=== PATIENT | male | born 1955 | race Caucasian/White ===

== ENCOUNTER 2017-02-05 05:25 | Day surgery (SDC) | payer SELFPAY ==
[~2017-02-05] VITALS: Ht 182.9 cm; Wt 94.0 kg
[~2017-02-05 05:25] MED LIST: ASPI81 PO; DIGO0.25 PO; ELIQUIS PO; ROSU40 PO
[2017-02-05] MEDS ORDERED: IOHEXOL 350 MG/ML 100 ML BTL (for Cath Lab) OTHER ONE (05:26)
[2017-02-05 06:00] VITALS: BP 106/70; PULSE 70; RESP 17; O2SAT 94
[2017-02-05] MEDS ORDERED: ASPIRIN 325 MG TAB PO SCH (06:00)
[2017-02-05] MEDS ORDERED: NS 1000P @30 MLS/HR (KVO) IV SCH (06:00)
[2017-02-05] MEDS ORDERED: LORazepam 1 MG TAB SL SCH (06:15)
[2017-02-05] MEDS ORDERED: SODIUM CHLORID 0.9% 500 ML INJ 500 ML IV SCH (06:15)
[2017-02-05] MEDS ORDERED: SODIUM CHLORID 0.9% 500 ML IV PRN (06:30)
[2017-02-05] MEDS ORDERED: LACTATED RINGER'S 1000 ML IV PRN (06:30)
[2017-02-05] MEDS ORDERED: INSULIN HUMAN REGULAR 1,000 UNITS/10 ML VIAL SQ PRN (06:30)
[2017-02-05] MEDS ORDERED: POVIDONE IODINE 5% (ANTISEPSIS KIT) 4 APPLICATIONS EACH NARE PRN (06:30)
[2017-02-05] MEDS ORDERED: METOPROLOL TARTRATE 25 MG TAB PO PRN (06:30)
[2017-02-05] MEDS ORDERED: CHLORHEXIDINE GLUCONATE 2 % 1 PACK (2 CLOTHS) TOPICAL PRN (06:30)
[2017-02-05 07:02] LABS: AUTOMATED NEUTROPHIL # 4.8 TH/MM3 (1.8-7.7); BASOPHIL % 0.5 % (0.0-2.0); EOSINOPHIL # 0.2 TH/MM3 (0-0.4); EOSINOPHIL % 2.4 % (0.0-4.0); HEMATOCRIT 47.9 % (39.0-51.0); HEMO FLAGS DIFF FINAL; LYMPH % 26.4 % (9.0-44.0); MEAN CELL VOLUME 97.8 FL (80.0-100.0); MEAN CORPUSCULAR HEMOGLOBIN 34.3 PG (27.0-34.0); MEAN CORPUSCULAR HGB CONC 35.1 % (32.0-36.0); MONO % 9.2 % (0.0-8.0); NEUT % 61.5 % (16.0-70.0); PLATELET COUNT 197 TH/MM3 (150-450); RED BLOOD COUNT 4.89 MIL/MM3 (4.50-5.90); RED CELL DISTRIBUTION WIDTH 13.2 % (11.6-17.2); WHITE BLOOD COUNT 7.8 TH/MM3 (4.0-11.0)
[2017-02-05 07:09] LABS: APTT (PATIENT) 27.5 SEC (24.3-30.1); PROTHROMBIN TIME - PATIENT 11.2 SEC (9.8-11.6)
[2017-02-05 07:17] LABS: BICARBONATE 26.8 MEQ/L (21.0-32.0); POTASSIUM 4.1 MEQ/L (3.5-5.1)
[2017-02-05] MEDS ORDERED: HEPARIN-NS/PF INJ 500 ML ONE (07:29)
[2017-02-05] MEDS ORDERED: MIDAZOLAM HCL 2 MG/2 ML VIAL ONE ×2 (07:30→08:09)
[2017-02-05] MEDS ORDERED: NITROGLYCERIN INJ 5 ML ONE ×2 (07:30→08:09)
[2017-02-05] MEDS ORDERED: BIVALIRUDIN 250 MG VIAL ONE (08:05)
[2017-02-05] MEDS ORDERED: STERILE WATER FOR INJECTION 10 ML VIAL ONE (08:05)
[2017-02-05] MEDS ORDERED: APIX5TAB PO (08:13)
[2017-02-05] MEDS ORDERED: CLOPIDOGREL 300 MG TAB ONE (08:24)
[2017-02-05] MEDS ORDERED: SODIUM CHLOR 0.9% 1000 ML INJ 1,000 ML IV SCH (08:46)
[2017-02-05] MEDS ORDERED: BIVALIRUDIN INJ 250 MG in SODIUM CHLORIDE 0.9% INJ 50 ML IV SCH (08:46)
--- NOTE | 2017-02-05 08:48 | CATHPROC ---
[employer] HIS Report Study Information Study Number Admission Scheduled Start Study Start [id number] Feb 05 2017 5:25AM 02/05/2017 Feb 05 2017 7:24AM [place] Service Cardiac Catheterization Admit Source Facility Department Other [facility] - Compliance Coordinator Physician and Clinical Staff Initial Venu Teresa Shoe Laster Brandy Khoury,CASIMIRO Recorder Kecia Mary,RT(R) Scrub Nato Watkins RCIS(BS) Procedures Performed Procedure Location (Site) Vessel Name Angiogram LV LV Ventricle Coronary Angiograms LCA Left Coronary Coronary Angiograms RCA Right Coronary Drug Eluting Inflatio LAD Prox Left Coronary L Heart Cath Wire insertion Fem Art (right) Femoral Art Equipment Time Online Trader Description Size Mfg Part Number Used/Scraped TRANSDUCER, ARIK [id number] 07:51 OBRIEN VERDUZCO * Used W/STOCKCOCK *[id number] *[id number] *[id number] PIGTAIL ANG. 145 INFINITI 534-652S CATHETER *[id number] *[id number] 08:26 DAIG/ST. MARIA R MEDICAL ANGIOSEAL, FR6 VIP FR 6 Used *[id number] 07:51 [employer] PACK, CCL CUSTOM * Used *[id number] 07:51 [employer] PACER PEN, SKIN DUAL W/ RULER * Used *[id number] 08:16 MED[employer] STENT, 3.5 12MM ARTURO 3.5 12MM Used *[id number] WIRE, COUGAR LS 190CM 08:09 [employer] 190CM [id number] Used (SILICONE) 08:11 [employer] WIRE, COUGAR XT 190CM 190CM [id number] Used [id number] 08:18 [employer] MEDICAL 30 POLO INDEFLATOR Used *[id number] 07:51 [employer] MEDICAL SHEATH, FR6.5 PRELUDE 11CM FR 6.5 038ACT Used *[id number] 07:51 [employer] MEDICAL WIRE, 3MMJ .035 180CM 180CM Used *[id number] 07:51 NAMIC MANIFOLD, 4 PORT * Used *[id number] 07:51 [employer] OMNIPAQUE, 350 MG, 100ML 100ML [id number] Used 08:03 [employer] OMNIPAQUE, 350 MG, 50ML 50ML [id number] Used [id number] 07:51 PRAJAPATI MEDICAL BLANKET,WARM AIR CCL * Used *[id number] Equipment Model, Serial, Lot Number and Expiration Data Description Model Number Serial Number Lot Number Expiration Date ANGIOJOSE DANGELO [id number] 11-10-2017 STENT, 3.5 12MM ARTURO [id number] 10-30-2018 History: Current Medications Medication Dosage/Unit Route Frequency Last Date/Time Taken 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 PRADAXA History: Allergies Allergy Reaction ketorolac History: Risk Factors Family History of Hypertension Dyslipidemia Previous SD Previous Heart Failure Premature CAD Yes Yes No No No Prior Valve Prior PCI Prior CABG Surgery No No No Cerebrovascular Peripheral Artery Chronic Lung On Dialysis Diabetes Disease Disease Disease No No No No No History: Stress Tests Stress or Imaging Studies Performed Yes Standard Exercise Stress Stress Test Result Stress Test Ischemia Risk/Extent Test Yes Positive Intermediate Stress Echo No Stress Test SPECT No Stress Test CMR No Cardiac CTA Coronary Calcium Score No No History: Other Disease Selection Items CAD History: Other Current Smoker Method Packs a Day Years Used Pack Years Yes Cigarettes 05 03 20 Labs Hgb (g/dl) Hct (%) WBC (l/cumm) Platelets (thousands) 11.60-17.00 35.00-51.00 4.00-11.00 150.00-450.00 16.8 47.9 7.8 197 Glucose (mg/dl) BUN (mg/dl) Creatinine (mg/dl) BUN:Creatinine (1:x) 74.00-106.00 7.00-18.00 0.50-1.30 10.00-20.00 98 13 0.9 14.4 Na (meq/l) K (meq/l) 136.00-145.00 3.50-5.10 142 4.1 INR (PTT:PT) 0.90-1.10 1 CPK-MB (ng/ML) 0.50-3.60 Not Drawn Medication Medication Total Dose (Bolus/Oral) Medication Total Dosage/Unit 1% XYLOCAINE 20 mL AGGRASTAT BOLUS 14 mL FENTANYL 50 mcg PLAVIX 600 mg VERSED 3 mg Medications (Bolus/Oral) Medication Time Given Dosage/Unit Administered By Reason VERSED 02/05/2017 7:47:21 AM 2 mg Brandy Khoury 2 mg VERSED given in lab by Brandy Khoury RN in Right Antecubital via Peripheral IV. Ordered by Venu Lowery. 1% XYLOCAINE 02/05/2017 7:49:45 AM 20 mL Venu Garcia 20 mL 1% XYLOCAINE given in lab by Venu Garcia in Right Groin via Subcutaneous. AGGRASTAT BOLUS 02/05/2017 8:08:00 AM 14 mL Brandy Khoury 14 mL AGGRASTAT BOLUS given in lab by Brandy Khoury RN in Right Antecubital via Peripheral IV. Ord ered by Venu Garcia. VERSED 02/05/2017 8:09:00 AM 1 mg Brandy Khoury 1 mg VERSED given in lab by Brandy Khoury RN in Right Antecubital via Peripheral IV. Ordered by Venu Lowery. FENTANYL 02/05/2017 8:22:45 AM 50 mcg Brandy Khoury 50 mcg FENTANYL given in lab by Brandy Khoury RN in Right Antecubital via Peripheral IV. Ordered b y Venu Garcia. PLAVIX 02/05/2017 8:29:25 AM 600 mg Brandy Khoury 600 mg PLAVIX given in lab by Brandy Khoury RN via Oral. Ordered by Venu Garcia. Medication (Drip) Medication Time Given Dosage/Unit Concentration/Unit Diluent (ml) Solution AGGRASTAT DRIP 02/05/2017 8:11:08 AM 0.292 mcg/kg/min 12.5 mg 250 NaCl .9 0.292 mcg/kg/min AGGRASTAT DRIP given in lab by Brandy Khoury RN in Right Antecubital via Peripher al IV. Pump/Drip Flow = 32.9 ml/hr using NaCl .9 with a concentration of 12.5 mg in 250 ml. Ordered by Venu Garcia. IV Solutions 02/05/2017 7:24:09 AM 50 mL (IV) NaCl .9 IV Solutions given in lab by Brandy Khoury RN in Right Antecubital via Peripheral IV. Pump/Drip Fl ow using NaCl .9. Initial Case Assessment Cardiovascular HR Rhythm NIBP Chest Pain 64 SR 125/87 0 Edema Present Skin color Skin None Normal Warm Dry Circulatory - Right Pulses Dorsalis Pedis Femoral 2 2 Scale (0,1,2,3,4,d) Circulatory - Left Pulses Dorsalis Pedis Femoral 2 2 Scale (0,1,2,3,4,d) Neurological State Oriented to time-place- Alert Moves all extremities person Respiration - General Respiration Rate SpO2 (%) (B/min) 14 95 Chronological Log Time Study Chronological Log 7:22:00 Patient arrived via Bed. 7:23:51 Patient Name, D.O.B, / Armband Verified By R.N. 7:23:52 Consent signed by the physician and the patient and verified by the Compliance Coordinator staff. 7:23:53 Pre-op and post- op instructions given; patient acknowledges understanding of instructions. 7:23:54 Verbal Stimulation=2 Physical Stimulation=2 Airway=2 Respiration=2 TOTAL=8. (0=absent, 1=li mited, 2=present) 7:23:57 Presedation assessment performed by Compliance Coordinator RN. 7:24:02 Patient has been NPO for More than 6Hrs. 7:24:02 Skin Breakdown- none per pt 7:24:04 Patient Warmer Placed on the Table. 7:24:06 Mya Prominences Protected 7:24:08 A # 20 IV was noted in the Antecubital (left). Grade = 0 7:24:08 A # 20 IV was noted in the Antecubital (right). Grade = 0 7:24:09 IV Solutions given in lab by Brandy Khoury, CASIMIRO in Right Antecubital via Peripheral IV. Pu mp/Drip Flow using NaCl .9. 7:24:10 History and physical on the chart or being dictated. Assessment: Initial Case, HR=64 BPM, Rhythm=SR, GXGU=402/87 mmhg, Chest Pain=0, Edema=None, Col or=Normal, Skin = Warm, Dry Right Pulses: Brad Ped=2, Femoral=2 7:24:11 Left Pulses: Brad Ped=2, Femoral=2 Neurological: State=Alert, Ox3, WALLACE Respiration: Resp=14 B/min, SpO2=95 % Vitals capture started with the following parameters, Patient=Adult, Interval=5 min, Initial Pre piksb=198 mmHg, 7:35:19 Deflation Rate=5 mmHg, Cuff placed on Right Arm 7:35:57 HR=67 bpm, RXFR=461/87 mmhg, SpO2=95.0 %, Resp=17 B/min 7:36:30 MD paged 7:36:34 Bilateral groins prepped with 2% chlorhexidine, and draped after a 3 minute waiting time. 7:39:00 Pressure channel 1 zeroed. 7:39:32 Reference ECG taken 7:40:00 MD arrived. 7:40:52 HR=68 bpm, SHDG=183/78 mmhg, SpO2=93 %, Resp=13 B/min 7:45:51 HR=67 bpm, OJEM=312/72 mmhg, Resp=16 B/min Time Out. Correct patient, correct procedure, correct physician, power injector loaded, or not l oaded with contrast with 7:46:14 surgical team present. Time Out Concurred by MD and individual staff in procedure. 7:46:49 Case Start 7:47:21 2 mg VERSED given in lab by Brandy Khoury, RN in Right Antecubital via Peripheral IV. Orde red by Venu Garcia. 7:49:45 20 mL 1% XYLOCAINE given in lab by Venu Garcia in Right Groin via Subcutaneous. 7:50:54 HR=69 bpm, OKPI=676/76 mmhg, SpO2=95 %, Resp=20 B/min 7:51:07 Access site was Right Femoral Artery. 7:51:23 A SHEATH, FR6.5 PRELUDE 11CM FR 6.5 was advanced into the Fem Art (right) using the Percutan eous technique. A PIGTAIL ANG. 145 INFINITI CATHETER FR 6 was advanced over a wire. OMNIPAQUE, 350 MG, 100ML 100 ML was 7:52:59 used for injections. Recorded Pressure: LV, HR=73, Condition=Condition 1 7:54:44 (Left Ventricle) LV 110/1/4 7:55:04 The LV was injected at 10 cc/sec for a total of 40. OMNIPAQUE, 350 MG, 50ML 50ML used. 7:55:51 HR=70 bpm, IVTK=872/81 mmhg, SpO2=93.0 %, Resp=18 B/min Recorded Pressure: LV, Ao, HR=73, Condition=Condition 1 7:56:27 (Left Ventricle) LV 97/3/7, (Aorta) Ao 95/59/76 7:56:46 Catheter was removed A JL 5.0 INFINITI CATHETER FR 6 was advanced over a wire. OMNIPAQUE, 350 MG, 100ML 100ML was use d for 7:57:29 injections. 7:58:26 The LCA was injected and visualized at various angles. OMNIPAQUE, 350 MG, 100ML 100ML used. 8:00:50 HR=68 bpm, QOLG=120/79 mmhg, SpO2=94.0 %, Resp=11 B/min 8:02:23 Catheter was removed A 3DRC INFINITI CATHETER FR 6 was advanced over a wire. OMNIPAQUE, 350 MG, 100ML 100ML was used for 8:02:31 injections. 8:03:33 The RCA was injected and visualized at various angles. OMNIPAQUE, 350 MG, 100ML 100ML used. 8:05:53 HR=79 bpm, PXRU=633/86 mmhg, SpO2=94 %, Resp=15 B/min 8:06:57 Catheter was removed 14 mL AGGRASTAT BOLUS given in lab by Brandy Khoury, CASIMIRO in Right Antecubital via Peripheral IV . Ordered by 8:08:00 Venu Garcia. 8:09:00 1 mg VERSED given in lab by Brandy Khoury, CASIMIRO in Right Antecubital via Peripheral IV. Orde red by Venu Garcia. 8:10:50 HR=73 bpm, WJZQ=269/81 mmhg, SpO2=95.0 %, Resp=13 B/min 0.292 mcg/kg/min AGGRASTAT DRIP given in lab by Brandy Khouyr, CASIMIRO in Right Antecubital via Per ipheral IV. 8:11:08 Pump/Drip Flow = 32.9 ml/hr using NaCl .9 with a concentration of 12.5 mg in 250 ml. Ordered by Venu Garcia. A XB LAD 4.0 GUIDE CATHETER FR 6 was advanced over a wire. OMNIPAQUE, 350 MG, 100ML 100ML was us ed for 8:11:56 injections. 8:12:04 A WIRE, COUGAR XT 190CM 190CM was inserted via Fem Art (right). 8:14:04 Interventional wire has crossed the lesion 8:15:53 HR=68 bpm, AWEQ=531/74 mmhg, Resp=20 B/min A STENT, 3.5 12MM ARTURO 3.5 12MM was advanced through a XB LAD 4.0 GUIDE CATHETER FR 6 over a W JIMENA, 8:18:03 COUGAR XT 190CM 190CM. A STENT, 3.5 12MM ARTURO 3.5 12MM was deployed using a 30 POLO INDEFLATOR at 14 atmospheres for 3 0 seconds in 8:18:16 the LAD Prox. 8:19:57 Delivery device removed 8:21:27 HR=74 bpm, VGFY=300/75 mmhg, SpO2=95.0 %, Resp=18 B/min 8:22:45 50 mcg FENTANYL given in lab by Brandy Khoury, RN in Right Antecubital via Peripheral IV . Ordered by Venu Garcia. 8:25:14 An injection in the Fem Art (right) was made through the SHEATH, FR6.5 PRELUDE 11CM FR 6.5 . 8:25:55 HR=72 bpm, HWEP=881/80 mmhg, SpO2=96 %, Resp=20 B/min 8:26:21 ANGIOSEAL, FR6 VIP FR 6 placement in the Fem Art (right) 8:28:00 Case End 8:29:25 600 mg PLAVIX given in lab by Brandy Khoury, RN via Oral. Ordered by Venu Garcia. 8:30:15 Sterile dressing applied to site 8:30:16 No case complications noted. 8:30:56 HR=68 bpm, AFIY=515/78 mmhg, SpO2=96.0 %, Resp=18 B/min 8:36:02 Vitals capture stopped. 8:37:00 A Left Heart Cath was performed. 8:38:00 Patient moved to [facility] End Study - Contrast Media Used In Study Contrast Total Opened (mL) Total Used (mL) Total Wasted (mL) Omnipaque 175 175 0 End Study - Maximum Contrast Load Max Contrast Load (mL) 522.2 End Study - Radiation Exposure Fluoro Time (minutes) 7.8 End Study - Patient Disposition Complications Transferred To Interventional Outcome No Telemetry Bed successful
[2017-02-05] MEDS ORDERED: SODIUM CHLORIDE 0.9% FLUSH 10 ML FLUSH IV FLUSH PRN (09:00)
[2017-02-05] MEDS ORDERED: MISC INFORMATION XX ONE (09:00)
[2017-02-05] MEDS ORDERED: SODIUM CHLORIDE 0.9% FLUSH 10 ML FLUSH IV FLUSH SCH (09:00)
[2017-02-05] MEDS ORDERED: oxyCODONE/ACETAMINOPHEN 5 MG/325 MG TAB PO PRN (09:00)
[2017-02-05] MEDS ORDERED: ACETAMINOPHEN 325 MG TAB PO PRN (09:00)
[2017-02-05] MEDS ORDERED: ONDANSETRON HCL 4 MG/2 ML VIAL IV PUSH PRN (09:00)
--- NOTE | 2017-02-05 10:38 | MA ---
cc: JUAN NINO M.D. VÍCTOR GRAY DATE 02/05/2017 PROCEDURE PERFORMED 1. Left heart catheterization 2. Left ventriculography 3. Coronary angiography 4. Drug-eluting stent implantation of the proximal left anterior descending coronary artery 5. Angio-Seal of the right femoral artery. BRIEF HISTORY Rosales Luciano is a 61-year-old man with known coronary artery disease and paroxysmal atrial fibrillation. 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 He had a previous cardiac catheterization June 14, 2012 showing a hazy 60% proximal LAD stenosis. FFR was negative. He had a treadmill test that was significant for [address] depression at peak exercise. Symptoms have been about class 2. The FAA told the patient he would have to have a cardiac catheterization before he could be approved to go back to work. He has also had recurrence of his atrial fibrillation detected on a stress test. For this reason, cardiac catheterization was performed. DESCRIPTION OF PROCEDURE The patient was brought to the cardiac systems testing laboratory technician in a fasting state. Using 1% lidocaine for local anesthesia, a 6-1/2-St Helenian sheath was inserted in the right femoral artery. Left ventricular pressure was then recorded using a pigtail catheter followed by left ventriculography and then a pullback. Left coronary angiography was completed using a left five Kourtney catheter. Right coronary angiography was completed using a 3DRC catheter. He was found to have a severe stenosis in the proximal LAD. He used a 6-St Helenian XB4 LAD guiding catheter to engage the left main. Intravenous Angiomax was given during the case. The LAD was wired with a Norton XT wire. I then direct stented the proximal LAD utilizing a 3.5 x 12 mm Nikos stent. There was a persistent waist on the stent until 14 atmospheres. The stent completely relieved. The stent result appears excellent. There was no loss of the small second diagonal branch or any of the septal branches. The patient had severe chest pain that resolved over the next 15 minutes. Angiography in multiple views shows a good stent result. I then obtained angiography of the right femoral artery via the sheath followed by uncomplicated Angio-Seal placement with good hemostasis. FINDINGS 1. Hemodynamics. Left ventricular pressure was 97/3 with an end-diastolic pressure of 7. The aortic pressure was 95/59 with a mean of 76. There was no gradient during pullback from the left ventricle to the aorta. 2. Left ventriculography. Left ventriculography shows a symmetrically bea left ventricle. There is a slight degree of coronary artery calcification. Estimated ejection fraction of 60% with no wall motion abnormalities. 3. Coronary angiography. The left main coronary artery is large and normal-appearing. It bifurcates into the LAD and circumflex vessels. The left anterior descending artery has a 20% proximal stenosis followed by a second 85% proximal stenosis and involves the origin of a small second diagonal branch, coming off distal to that is the major septal rectifying attendant. The remainder of the LAD appears normal. The circumflex artery proximally has an eccentric 20% stenosis. It bifurcates into a large bifurcating obtuse marginal branch and a medium-sized distal circumflex vessel that gives off a few tiny posterolateral branches. The right coronary artery is technically dominant, but a somewhat small vessel. There is somewhat diffuse proximal and mid disease. The proximal disease is about 20%. Mid vessel has about 30% stenosis. Distally, it is just irregularities only. It gives off a very small posterolateral branch and a small posterior descending artery branch. 4. Results of stenting. Following stenting of the proximal LAD using a 3.5 x 12 drug-eluting stent, there is now a 0% residual stenosis without evidence of dissection or thrombus and no loss of any side branches. PLAN I am going to continue aspirin and Plavix initially, but stop the aspirin early and then continue Plavix and Eliquis long-term. MD MANSOOR Easton/JULIET /8:40 AM /10:25 AM
--- NOTE | 2017-02-05 14:56 | EKG ---
Date Performed: 02/05/2017 Time Performed: 06:55:36 PTAGE: 61 years EKG: Sinus rhythm with frequent PVCs ST junctional depression is nonspecific Compared to previous tracing the frequent PVCs are new. The lateral T-wave changes have resolved. Abnormal ECG PREVIOUS TRACING : 07/09/2012 18.48 DOCTOR: Vicky Zapata Interpretating Date/Time 02/05/2017 14:52:19
--- NOTE | 2017-02-05 17:34 | HHI.PR ---
Addendum to Inpatient Note Addendum Reason: Additional Documentation Additional Information Doing well post stent. Chest clear, CV [id number], Right groin looks fine. DC home. ASA 81mg daily 1 week then stop. Clopidogrel 75 mg daily (script writtent) . Start Pradaxa baxck on Thursday. Keep OV. Heart healthy diet. No strenuous activity. Venu Garcia MD Feb 05, 2017 17:34
--- NOTE | 2017-02-05 23:37 | EKG ---
Date Performed: 02/05/2017 Time Performed: 10:23:32 PTAGE: 61 years EKG: Sinus rhythm with PVC(s) Septal T wave changes are nonspecific Abnormal ECG PREVIOUS TRACING : 02/05/2017 06.55 Compared to prior tracing no significant change DOCTOR: Tom Russell Interpretating Date/Time 02/05/2017 23:36:26
[2017-02-06] MEDS ORDERED: ASPIRIN 81 MG CHEW TAB PO SCH (09:00)
[2017-02-06] MEDS ORDERED: CLOPIDOGREL 75 MG TAB PO SCH (09:00)
== END 2017-02-05 18:03 | disposition home or self-care (01) ==
LOC: HDOC 05:25 → HDIC 05:29 → HDOC 18:03
PROVIDERS: ATTEND Internal Medicine Cardiovascular Disease
DX: I25.10 Atherosclerotic heart disease of native coronary artery without angina pectoris (principal); I48.0 Paroxysmal atrial fibrillation; I49.3 Ventricular premature depolarization; R94.31 Abnormal electrocardiogram [ECG] [EKG]; E78.5 Hyperlipidemia, unspecified; I10 Essential (primary) hypertension; F17.200 Nicotine dependence, unspecified, uncomplicated
CPT/HCPCS: 80048; 85025; 85610; 85730; 86850; 86900; 86901; 92928; 93005; 93458; 99152; 99153; C1760; C1769; C1874; C1887; C1893; G0269; J0583; J1644; J2250; J3010; J7030; J7040; Q9967

== ENCOUNTER 2017-03-07 12:32 | Inpatient (IN) | payer SELFPAY ==
[~2017-03-07] VITALS: Ht 182.9 cm; Wt 98.6 kg
[2017-03-07] VITALS (7 sets, daily range): BP systolic 104–133; BP diastolic 59–78; PULSE 57–80; RESP 16–18; TEMP 98–98.7; O2SAT 95–100
[~2017-03-07 12:32] MED LIST changes: +APIX5TAB PO; -ELIQUIS PO
--- NOTE | 2017-03-07 12:36 | PD ---
HPI Chief Complaint: Syncope Time Seen by Provider: 12:35 Travel History International Travel<30 days: No Contact w/Intl Traveler<30days: No Traveled to known affect area: No History of Present Illness HPI 61-year-old male not in by EMS status post syncopal event while standing in line for some water at the [employer]. Patient has significant cardiac history for recent stent placement by Dr. Garcia 3 weeks ago. Patient has history of A. fib intermittently, and is scheduled for an ablation in the next several weeks. Patient is currently on Plavix and Pradaxa. Patient was noted to have a couple of episodes of bigeminy in transport which improved with addition of O2 via nasal cannula. Currently patient has no complaints of pain or shortness of breath. He has no nausea or vomiting. He is allergic to ketorolac. PFSH Past Medical History Autoimmune Disease: No Blood Disorders: No Cancer: No Cardiovascular Problems: Yes (A-FIB ABLATION) High Cholesterol: Yes Chemotherapy: No Chest Pain: No Diabetes: No Diminished Hearing: No Endocrine: No Gastrointestinal Disorders: No Glaucoma: No Genitourinary: No Hepatitis: No Hiatal Hernia: No Immune Disorder: No Implanted Vascular Access Dvce: No Musculoskeletal: No Neurologic: No Psychiatric: No Reproductive: No Respiratory: No Integumentary: No Radiation Therapy: No Thyroid Disease: No Past Surgical History Abdominal Surgery: No Cardiac Surgery: Yes (CARDIAC ABLATION) Endocrine Surgery: No Genitourinary Surgery: No Thoracic Surgery: No Tonsillectomy: Yes Other Surgery: Yes (TONSILS,A-FIB ABLATION) Social History Alcohol Use: No Tobacco Use: Yes (1/2PPD) Substance Use: No Allergies-Medications (Allergen,Severity, Reaction): Coded Allergies: ketorolac (Unverified Allergy, Severe, 11/25/16) Reported Meds & Prescriptions Reported Meds & Active Scripts Active Reported Crestor (Rosuvastatin Calcium) 40 Mg Tab 40 Mg PO DAILY Plavix (Clopidogrel Bisulfate) 75 Mg Tab 75 Mg PO DAILY Pradaxa (Dabigatran) 150 Mg Cap 150 Mg PO BID Digoxin 0.25 Mg Tab 0.25 Mg PO DAILY Review of Systems Cardiovascular: Positive: Palpitations, Irregular Rhythm, Syncope (see history present illness) Physical Exam Narrative GENERAL: Patient appears in no acute distress at time of exam. SKIN: Warm and dry. Normal color. Normal turgor. Patient has abrasion to the left elbow with superficial abrasion to the volar left forearm HEAD: Atraumatic. Normocephalic. EYES: Pupils equal and round. No scleral icterus. No injection or drainage. ENT: No nasal bleeding or discharge. Mucous membranes pink and moist. Pharynx is clear. Airway is patent. NECK: Trachea midline. Supple nontender. CARDIOVASCULAR: Irregular rate and rhythm. No murmurs gallops or rubs at time of exam. RESPIRATORY: No accessory muscle use. Clear to auscultation. Breath sounds equal bilaterally. GASTROINTESTINAL: Abdomen soft, non-tender, nondistended. Hepatic and splenic margins not palpable. MUSCULOSKELETAL: Extremities without clubbing, cyanosis, or edema. No obvious deformities. NEUROLOGICAL: Awake and alert. No obvious cranial nerve deficits. Motor grossly within normal limits. Five out of 5 muscle strength in the arms and legs. Normal speech. PSYCHIATRIC: Appropriate mood and affect; insight and judgment normal. Data Data Last Documented VS Vital Signs Date Time Temp Pulse Resp B/P (MAP) Pulse Ox O2 Delivery O2 Flow Rate FiO2 03/07/17 12:55 95 18 97 Room Air 03/07/17 12:55 98.3 119/59 (79) Orders Orders Electrocardiogram (03/07/17 12:41) Complete Blood Count With Diff (03/07/17 12:41) Comprehensive Metabolic Panel (03/07/17 12:41) Magnesium (Mg) (03/07/17 12:41) Ckmb (Isoenzyme) Profile (03/07/17 12:41) Troponin I (03/07/17 12:41) Act Partial Throm Time (Ptt) (03/07/17 12:41) Prothrombin Time / Inr (Pt) (03/07/17 12:41) Urinalysis - C+S If Indicated (03/07/17 12:41) Chest, Single Ap (03/07/17 12:41) Ecg Monitoring (03/07/17 12:41) Iv Access Insert/Monitor (03/07/17 12:41) Oximetry (03/07/17 12:41) Oxygen Administration (03/07/17 12:41) Sodium Chloride 0.9% Flush (Ns Flush) (03/07/17 12:45) Sodium Chlor 0.9% 1000 Ml Inj (Ns 1000 M (03/07/17 12:41) Morphine Inj (Morphine Inj) (03/07/17 13:30) Nitroglycerin Sl (Nitrostat Sl) (03/07/17 13:30) Digoxin (03/07/17 13:32) Admit Order (Ed Use Only) (03/07/17 14:14) Labs Laboratory Tests Test 03/07/17 12:51 White Blood Count 8.7 TH/MM3 Red Blood Count 4.39 MIL/MM3 Hemoglobin 15.0 GM/DL Hematocrit 42.4 % Mean Corpuscular Volume 96.6 FL Mean Corpuscular Hemoglobin 34.1 PG Mean Corpuscular Hemoglobin Concent 35.3 % Red Cell Distribution Width 13.1 % Platelet Count 195 TH/MM3 Mean Platelet Volume 8.3 FL Neutrophils (%) (Auto) 57.6 % Lymphocytes (%) (Auto) 31.9 % Monocytes (%) (Auto) 8.1 % Eosinophils (%) (Auto) 1.9 % Basophils (%) (Auto) 0.5 % Neutrophils # (Auto) 5.0 TH/MM3 Lymphocytes # (Auto) 2.8 TH/MM3 Monocytes # (Auto) 0.7 TH/MM3 Eosinophils # (Auto) 0.2 TH/MM3 Basophils # (Auto) 0.0 TH/MM3 CBC Comment DIFF FINAL Differential Comment Prothrombin Time 12.0 SEC Prothromb Time International Ratio 1.1 RATIO Activated Partial Thromboplast Time 33.4 SEC Blood Urea Nitrogen 12 MG/DL Creatinine 0.74 MG/DL Random Glucose 98 MG/DL Total Protein 6.7 GM/DL Albumin 3.3 GM/DL Calcium Level 8.3 MG/DL Magnesium Level 1.8 MG/DL Alkaline Phosphatase 86 U/L Aspartate Amino Transf (AST/SGOT) 11 U/L Alanine Aminotransferase (ALT/SGPT) 12 U/L Total Bilirubin 0.4 MG/DL Sodium Level 139 MEQ/L Potassium Level 4.1 MEQ/L Chloride Level 108 MEQ/L Carbon Dioxide Level 24.1 MEQ/L Anion Gap 7 MEQ/L Estimat Glomerular Filtration Rate 108 ML/MIN Total Creatine Kinase 76 U/L Troponin I LESS THAN 0.02 NG/ML MDM Medical Decision Making Medical Screen Exam Complete: Yes Emergency Medical Condition: Yes Medical Record Reviewed: Yes Differential Diagnosis Syncope. Cardiac syndrome. Arrhythmia. Narrative Course Patient appears medically stable at time of exam. Labs ordered including CBC, CMP, magnesium, cardiac panel, urinalysis. Chest x-ray and EKG is ordered. IV access is obtained patient is given 1000 miles normal saline bolus. EKG shows sinus rhythm with occasional ventricular premature complexes with frequent SVC's. This is reviewed with Dr. Santos. CBC is unremarkable. Coagulation studies show PT of 12, INR 1.1, APTT is 33.4 CMP shows chloride 108, calcium 8.3, otherwise unremarkable. First troponin is less than 0.02. Patient complains of chest pain and repeat EKG is performed showing no changes from previous. Patient is given 4 mg morphine IV. Chest x-ray is unremarkable for acute disease. Digoxin levels added to his labs. Patient discussed with Dr. Santos feels he should be admitted, due to his previous history and intermittent chest pain and arrhythmias with history of syncope. Call was placed to the hospitalist, Dr. Santos excoriated with Dr. Gonzales regarding admission. Diagnosis Primary Impression: Syncope and collapse Additional Impressions: Cardiac arrhythmia, unspecified Qualified Codes: I49.8 - Other specified cardiac arrhythmias Chest pain at rest Admitting Information Admitting Physician Requests: Admit Condition: Stable Caden Franco Mar 07, 2017 12:36
[2017-03-07] MEDS ORDERED: SODIUM CHLOR 0.9% 1000 ML INJ 1,000 ML IV ONE (12:41)
[2017-03-07] MEDS ORDERED: SODIUM CHLORIDE 0.9% FLUSH 10 ML FLUSH IVF PRN (12:45)
[2017-03-07 13:03] LABS: BASOPHIL % 0.5 % (0.0-2.0); EOSINOPHIL # 0.2 TH/MM3 (0-0.4); EOSINOPHIL % 1.9 % (0.0-4.0); HEMATOCRIT 42.4 % (39.0-51.0); HEMO FLAGS DIFF FINAL; LYMPH % 31.9 % (9.0-44.0); LYMPHOCYTE # 2.8 TH/MM3 (1.0-4.8); MEAN CELL VOLUME 96.6 FL (80.0-100.0); MEAN CORPUSCULAR HEMOGLOBIN 34.1 PG (27.0-34.0); MEAN CORPUSCULAR HGB CONC 35.3 % (32.0-36.0); MONO % 8.1 % (0.0-8.0); NEUT % 57.6 % (16.0-70.0); PLATELET COUNT 195 TH/MM3 (150-450); RED BLOOD COUNT 4.39 MIL/MM3 (4.50-5.90); RED CELL DISTRIBUTION WIDTH 13.1 % (11.6-17.2); WHITE BLOOD COUNT 8.7 TH/MM3 (4.0-11.0)
[2017-03-07] MEDS ORDERED: PRAD150C PO (13:05)
[2017-03-07] MEDS ORDERED: DIGO0.25 PO (13:05)
[2017-03-07] MEDS ORDERED: PLAV75TA29 PO (13:06)
[2017-03-07] MEDS ORDERED: ROSU40 PO (13:06)
[2017-03-07 13:10] LABS: APTT (PATIENT) 33.4 SEC (24.3-30.1); INTERNATIONAL NORMALIZED RATIO 1.1 RATIO
[2017-03-07 13:15] LABS: ALT (GPT) 12 U/L (12-78); ANION GAP 7 MEQ/L (5-15); AST (GOT) 11 U/L (15-37); BICARBONATE 24.1 MEQ/L (21.0-32.0); BLOOD UREA NITROGEN 12 MG/DL (7-18); CHLORIDE 108 MEQ/L (98-107); GLOMERULAR FILTRATION RATE 108 ML/MIN (>89); MAGNESIUM 1.8 MG/DL (1.5-2.5); POTASSIUM 4.1 MEQ/L (3.5-5.1); SODIUM (NA) 139 MEQ/L (136-145)
[2017-03-07 13:19] LABS: ALKALINE PHOSPHATASE 86 U/L (45-117); TOTAL BILIRUBIN ADULT 0.4 MG/DL (0.2-1.0)
[2017-03-07 13:22] LABS: CREATINE KINASE 76 U/L (39-308)
[2017-03-07] MEDS ORDERED: MORPHINE SULFATE 4 MG/ML INJ IV PUSH ONE (13:30)
[2017-03-07] MEDS: NITROGLYCERIN 0.4 MG SL 25 TABS/BTL SL SCH ×4 (13:30→13:48)
--- NOTE | 2017-03-07 13:38 | RADRPT ---
EXAM DATE/TIME: 03/07/2017 12:59 [facility] COMPARISON: No previous studies available for comparison. INDICATIONS : Palpitations. MEDICAL HISTORY : A fib SURGICAL HISTORY : Cardiac stent. ENCOUNTER: Initial ACUITY: 1 day PAIN SCORE: 0/10 LOCATION: Bilateral chest FINDINGS: A single view of the chest demonstrates the lungs to be symmetrically aerated without evidence of mas s, infiltrate or effusion. The cardiomediastinal contours are unremarkable. Osseous structures are intact. CONCLUSION: No acute disease. Jorge L Gamino MD on March 07, 2017 at 13:36 Board Certified Radiologist. This report was verified electronically.
[2017-03-07 14:27] LABS: BLOOD, URINE NEG (NEG); GLUCOSE,URINE NEG (NEG); KETONE, URINE NEG (NEG); NITRITE,URINE NEG (NEG); PH, URINE 6.5 (5.0-8.5); SQUAMOUS EPITHELIAL CELL URINE <1 /hpf (0-5); URINE COLOR LIGHT-YELLOW (YELLW/STRAW)
[2017-03-07] MEDS ORDERED: LACTULOSE SYRUP 20 GM/30 ML CUP PO PRN (14:30)
[2017-03-07] MEDS ORDERED: NALOXONE HCL 0.4 MG/ML AMP IV PUSH PRN (14:30)
[2017-03-07] MEDS ORDERED: SENNOSIDES 8.6 MG TAB PO PRN (14:30)
[2017-03-07] MEDS ORDERED: SODIUM CHLORIDE 0.9% FLUSH 10 ML FLUSH IV FLUSH PRN (14:30)
[2017-03-07] MEDS ORDERED: MAGNESIUM HYDROXIDE SUSP 30 ML CUP PO PRN (14:30)
[2017-03-07] MEDS ORDERED: BISACODYL 10 MG SUPP RECTAL PRN (14:30)
[2017-03-07 14:36] LABS: COMMENT (UR) CULT NOT INDICATED; CULTURE IF INDICATED CULT NOT INDICATED
--- NOTE | 2017-03-07 16:12 | RADRPT ---
EXAM DATE/TIME: 03/07/2017 15:39 [facility] COMPARISON: No previous studies available for comparison. INDICATIONS : Syncope. MEDICAL HISTORY : Hypercholesterolemia. SURGICAL HISTORY : Tonsillectomy. Cardiac ablation. ENCOUNTER: Initial ACUITY: 1 day PAIN SCORE: 0/10 LOCATION: Bilateral neck PEAK SYSTOLIC VELOCITIES (cm/sec): ICA/CCA RATIO: Right: 3.2 Left: 1.2 ICA: Right: 219.3 Left: 101.1 CCA: Right: 68.8 Left: 81.7 ECA: Right: 51.3 Left: 83.3 VERTEBRAL: Right: 57.5 antegrade Left: 59.0 antegrade Elevated flow velocities and ICA/CCA ratios have been found to correlate with increased degrees of vessel stenosis, calculated as percentage of diameter relative to a normal segment of distal ICA/CCA FINDINGS: RIGHT CAROTID: Prominent non-shadowing plaque in the proximal internal carotid artery. There is widening of the Dop pler velocity spectrum was negative velocity components are in both systole and diastole. LEFT CAROTID: No significant stenosis is visualized. The waveforms are within normal limits. VERTEBRAL ARTERIES: Antegrade flow is seen in both vertebral arteries. MISCELLANEOUS: None. CONCLUSION: 1. Moderate severity right proximal internal carotid artery disease with hemodynamic parameters bill cteristic of 50-70% stenosis. 2. Normal hemodynamic profile on the left side. Pawan Christopher MD on March 07, 2017 at 16:08 Board Certified Radiologist. This report was verified electronically.
[2017-03-07] MEDS: SODIUM CHLOR 0.45% 1000 ML INJ 1,000 ML IV SCH (16:41)
--- NOTE | 2017-03-07 17:05 | HHI.HP ---
HPI Service [facility] Hospitalists Primary Care Physician [facility] Admission Diagnosis Syncope/Arythmia/Chest Pain Diagnoses: Chief Complaint: Chest pain Syncope Travel History International Travel<30 Days: No Contact w/Intl Traveler <30 Da: No Traveled to Known Affected Are: No History of Present Illness Written by Gloria Pate, acting as scribe for Dr. Gonzales on 03/07/17 at 16: 56. This patient is a 61-year-old male with past medical history significant for coronary artery disease status post recent cardiac catheterization and stent implant 02/05/17 and atrial fibrillation who presents to [facility] with complaints of syncopal event while standing in line for some water at the [employer] earlier today. Patient states he had just walked over to [place] from [place] when he developed palpitations and lightheadedness. He felt himself begin to pass out and braced himself with his left arm. Patient denies every losing consciousness. He states he felt dehydrated prior to the incident. Paramedics at the scene told him his EKG showed atrial fibrillation. Reportedly, patient is scheduled for an ablation in the next several weeks. He is currently on Plavix, Lipitor, Pradaxa and Metoprolol. Per review of the ED note, patient had couple episodes of bigeminy in transport which improved with oxygen. EKG showed NSR with occasional PVCs. While in the ED, patient also complained of "chest tightening " that he described as left sided pressure. Patient was given IV Morphine with improvement in symptoms after a few minutes. Patient had a repeat EKG was obtained showing no changes from previous. CXR unremarkable for acute disease. Patient denies any recent illness. He denies any fever, chills or vision changes. He does report increased fatigue since having the cardiac stent implanted. He denies any dyspnea. He denies any nausea, vomiting or abdominal pain. He denies any urinary difficulties, diarrhea or constipation. Review of Systems Except as stated in HPI: all other systems reviewed are Neg Past Family Social History Past Medical History Atrial fibrillation scheduled for ablation CAD status post cardiac stent implant Dyslipidemia Past Surgical History Cardiac stent implant 3 weeks ago Appendectomy Previous cardiac ablation Tonsillectomy Reported Medications Crestor (Rosuvastatin Calcium) 40 Mg Tab 40 Mg PO DAILY Plavix (Clopidogrel Bisulfate) 75 Mg Tab 75 Mg PO DAILY Pradaxa (Dabigatran) 150 Mg Cap 150 Mg PO BID Digoxin 0.25 Mg Tab 0.25 Mg PO DAILY Allergies: Coded Allergies: ketorolac (Unverified Allergy, Severe, 11/25/16) Active Ordered Medications Current Medications Medications (Trade) Dose Ordered Sig/Pooja Route Start Time Stop Time Status Last Admin (NS Flush) 2 ml UNSCH PRN IVF 03/07/17 12:45 (Plavix) 75 mg DAILY PO 03/08/17 09:00 (Pradaxa) 150 mg BID PO 03/07/17 21:00 (Lipitor) 80 mg DAILY PO 03/08/17 09:00 Sodium Chloride 1,000 ml @ 75 mls/hr [id number] IV 03/07/17 14:23 03/07/17 16:41 (NS Flush) 2 ml UNSCH PRN IV FLUSH 03/07/17 14:30 (NS Flush) 2 ml BID IV FLUSH 03/07/17 21:00 (Narcan Inj) 0.4 mg UNSCH PRN IV PUSH 03/07/17 14:30 (Milk Of Magnesia Liq) 30 ml Q12H PRN PO 03/07/17 14:30 (Senokot) 17.2 mg Q12H PRN PO 03/07/17 14:30 (Dulcolax Supp) 10 mg DAILY PRN RECTAL 03/07/17 14:30 (Lactulose Liq) 30 ml DAILY PRN PO 03/07/17 14:30 Family History Sister, diabetes Coronary artery disease Father, age 50, lymphoma Mother, , stomach and liver cancer Social History Patient has a history of tobacco use of between 3/4 and a pack a day for 20years. Patient reports rare EtOH consumption and none today. Patient denies any illicit drug use. 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 Physical Exam Vital Signs Vital Signs Date Time Temp Pulse Resp B/P (MAP) Pulse Ox O2 Delivery O2 Flow Rate FiO2 03/07/17 16:35 98.0 57 16 133/78 (96) 99 03/07/17 12:55 95 18 97 Room Air 03/07/17 12:55 18 98 Room Air 03/07/17 12:55 97 Room Air 03/07/17 12:55 98.3 80 18 119/59 (79) 98 Room Air Physical Exam GENERAL: This is a well-nourished, well-developed patient, in no apparent distress. SKIN: Cool and dry. Patient has abrasions to left elbow with superficial abrasion on the volar aspect of left forearm. HEAD: Atraumatic. Normocephalic. No temporal or scalp tenderness. EYES: Pupils equal round and reactive. Extraocular motions intact. No scleral icterus. No injection or drainage. ENT: Nose without bleeding or purulent drainage. Throat without erythema, tonsillar hypertrophy or exudate. Uvula midline. Airway patent. NECK: Trachea midline. No lymphadenopathy. Supple, nontender, no meningeal signs. CARDIOVASCULAR: Regular rate and rhythm without murmurs, gallops, or rubs. RESPIRATORY: Clear to auscultation. Breath sounds equal bilaterally. No wheezes , rales, or rhonchi. GASTROINTESTINAL: Abdomen soft, non-tender, nondistended. No hepato-splenomegaly , or palpable masses. No guarding. MUSCULOSKELETAL: Extremities without clubbing, cyanosis, or edema. No joint tenderness, effusion, or edema noted. No calf tenderness. NEUROLOGICAL: Awake and alert. Cranial nerves II through XII intact. Motor and sensory grossly within normal limits. Five out of 5 muscle strength in all muscle groups. Normal speech. Laboratory Laboratory Tests Test 03/07/17 12:51 03/07/17 14:08 White Blood Count 8.7 Red Blood Count 4.39 Hemoglobin 15.0 Hematocrit 42.4 Mean Corpuscular Volume 96.6 Mean Corpuscular Hemoglobin 34.1 Mean Corpuscular Hemoglobin Concent 35.3 Red Cell Distribution Width 13.1 Platelet Count 195 Mean Platelet Volume 8.3 Neutrophils (%) (Auto) 57.6 Lymphocytes (%) (Auto) 31.9 Monocytes (%) (Auto) 8.1 Eosinophils (%) (Auto) 1.9 Basophils (%) (Auto) 0.5 Neutrophils # (Auto) 5.0 Lymphocytes # (Auto) 2.8 Monocytes # (Auto) 0.7 Eosinophils # (Auto) 0.2 Basophils # (Auto) 0.0 CBC Comment DIFF FINAL Differential Comment Prothrombin Time 12.0 Prothromb Time International Ratio 1.1 Activated Partial Thromboplast Time 33.4 Blood Urea Nitrogen 12 Creatinine 0.74 Random Glucose 98 Total Protein 6.7 Albumin 3.3 Calcium Level 8.3 Magnesium Level 1.8 Alkaline Phosphatase 86 Aspartate Amino Transf (AST/SGOT) 11 Alanine Aminotransferase (ALT/SGPT) 12 Total Bilirubin 0.4 Sodium Level 139 Potassium Level 4.1 Chloride Level 108 Carbon Dioxide Level 24.1 Anion Gap 7 Estimat Glomerular Filtration Rate 108 Total Creatine Kinase 76 Troponin I LESS THAN 0.02 Digoxin Level LESS THAN 0.1 Urine Color LIGHT-YELLOW Urine Turbidity CLEAR Urine pH 6.5 Urine Specific [place] 1.007 Urine Protein NEG Urine Glucose (UA) NEG Urine Ketones NEG Urine Occult Blood NEG Urine Nitrite NEG Urine Bilirubin NEG Urine Urobilinogen LESS THAN 2.0 Urine Leukocyte Esterase NEG Urine RBC 1 Urine WBC 1 Urine Squamous Epithelial Cells <1 Microscopic Urinalysis Comment CULT NOT INDICATED Urine Opiates Screen NEG Urine Barbiturates Screen NEG Urine Amphetamines Screen NEG Urine Benzodiazepines Screen NEG Urine Cocaine Screen NEG Urine Cannabinoids Screen NEG Result Diagram: 03/07/17 1251 03/07/17 1251 Imaging Last Impressions Chest X-Ray 03/07/17 1241 Signed Impressions: Service Date/Time: Tuesday, March 07, 2017 12:59 - CONCLUSION: No acute disease. Jorge L Gamino MD Carotid Artery Ultrasound 03/07/17 0000 Signed Impressions: Service Date/Time: Tuesday, March 07, 2017 15:39 - CONCLUSION: 1. Moderate severity right proximal internal carotid artery disease with hemodynamic parameters characteristic of 50-70%% stenosis. 2. Normal hemodynamic profile on the left side. Pawan Christopher MD Cappascalei VTE Risk Assessment Caprini VTE Risk Assessment: Mod/High Risk (score >= 2) Caprini Risk Assessment Model Point Value = 1 Point Value = 2 Point Value = 3 Point Value = 5 Age 41-60 Minor surgery BMI > 25 kg/m2 Swollen legs Varicose veins or History of unexplained or recurrent spontaneous Oral contraceptives or hormone replacement Sepsis (< 1 month) Serious lung disease, including pneumonia (< 1 month) Abnormal pulmonary function Acute myocardial infarction Congestive heart failure (< 1 month) History of inflammatory bowel disease Medical patient at bed rest Age 61-74 Arthroscopic surgery Major open surgery (> 45 min) Laparoscopic surgery (> 45 min) Malignancy Confined to bed (> 72 hours) Immobilizing plaster cast Central venous access Age >= 75 History of VTE Family history of VTE Factor V Leiden Prothrombin [id number] Lupus anticoagulant Anticardiolipin antibodies Elevated serum homocysteine Heparin-induced thrombocytopenia Other congenital or acquired thrombophilia Stroke (< 1 month) Elective arthroplasty Hip, pelvis, or leg fracture Acute spinal cord injury (< 1 month) Prophylaxis Regimen Total Risk Factor Score Risk Level Prophylaxis Regimen 0-1 Low Early ambulation 2 Moderate Order ONE of the following: *Sequential Compression Device (SCD) *Heparin 5000 units SQ BID 3-4 Higher Order ONE of the following medications: *Heparin 5000 units SQ TID *Enoxaparin/Lovenox 40 mg SQ daily (WT < 150 kg, CrCl > 30 mL/min) *Enoxaparin/Lovenox 30 mg SQ daily (WT < 150 kg, CrCl > 10-29 mL/min) *Enoxaparin/Lovenox 30 mg SQ BID (WT < 150 kg, CrCl > 30 mL/min) AND/OR *Sequential Compression Device (SCD) 5 or more Highest Order ONE of the following medications: *Heparin 5000 units SQ TID (Preferred with Epidurals) *Enoxaparin/Lovenox 40 mg SQ daily (WT < 150 kg, CrCl > 30 mL/min) *Enoxaparin/Lovenox 30 mg SQ daily (WT < 150 kg, CrCl > 10-29 mL/min) *Enoxaparin/Lovenox 30 mg SQ BID (WT < 150 kg, CrCl > 30 mL/min) AND *Sequential Compression Device (SCD) Assessment and Plan Assessment and Plan 61-year-old male with past medical history significant for coronary artery disease status post recent cardiac catheterization and stent implant 02/05/17 and atrial fibrillation who presents to [facility] with complaints of syncopal event while standing in line for some water at the [employer] earlier today. Chest pain in patient with known history of CAD status post previous cardiac catheterization with cardiac stent implant 02/05/17, r/o ACS - EKG personally reviewed shows normal sinus rhythm with occasional PVCs and frequent SVC's - Initial troponin less than 0.02. Continue trend cardiac enzymes - Consult patients groundman/lineman Dr. Venu Garcia, appreciate his assistance - IV morphine and NTG sl when necessary chest pain - Continuous cardiac monitoring - Supplemental oxygen - Continue patient on home medications of Lipitor, Plavix, Metoprolol and Pradaxa. - heart healthy diet Syncope/near syncopal episode - UDS negative - IVF hydration - Obtain echocardiogram - Holter monitor - Carotid ultrasound completed - Moderate severity right proximal internal carotid artery disease with hemodynamic parameters characteristic of 50-70% stenosis. Consult Vascular surgery. - Continue his cardiac monitoring - Fall precautions Atrial fibrillation - rate controlled - Continue patient on home dose of Pradaxa 150mg BID - Continue patient on Metoprolol 25mg BID - Monitor heart rate Tobaccoism - discussed importance of cessation DVT prophylaxis - patient is on Pradaxa Discussed Condition With Patient, ED physician Physician Certification 2 Midnight Certification Type: Admission for Inpatient Services Order for Inpatient Services The services are ordered in accordance with Medicare regulations or non- Medicare payer requirements, as applicable. In the case of services not specified as inpatient-only, they are appropriately provided as inpatient services in accordance with the 2-midnight benchmark. Estimated LOS (days): 2 days is the estimated time the patient will need to remain in the hospital, assuming treatment plan goals are met and no additional complications. Post-Hospital Plan: Home Notes: This note was transcribed by ellie Pate. I, Dr. Alvaro Gonzales personally performed the history, physical exam, and medical decision making; and confirmed the accuracy of the information in the transcribed note. Authenticated by Dr. Alvaro Gonzales on 03/07/17 at 18:10. Gloria Pate Mar 07, 2017 17:05 Alvaro Gonzales MD Mar 07, 2017 18:10
--- NOTE | 2017-03-07 17:51 | MB ---
cc: TOM JOHN DO DATE OF CONSULTATION 03/07/17 REASON FOR CONSULTATION Syncopal episode. HISTORY OF PRESENT ILLNESS Rosales Luciano is a pleasant 61-year-old male known to my partner, Dr. Venu Garcia, who presented to [facility] on March 07, 2017 after a syncopal episode. The patient states that he and his brothers and father were going to the car show today. His father was unable to walk through the car show and so he took him home and then parked at the [employer], ran across the bridge and was walking around the car show briefly. He found his brothers and told them that he had not drank water all day and needed some water. He got over to the line for water and felt something come over him. He denies chest pain, shortness of breath during the episode. As he felt the episode come over him like a warmth and in his head and body he started to pass out. He grabbed a table and let himself down. Per the patient he never lost consciousness. Once he came to he felt better but his brother said that he was pale. After he came to he started feeling better and had no further complaints. Because of the episode EMS brought him to the emergency room. Per the ER records he had a couple episodes of bigeminy while in transport. In seeing him he states that he has no chest pain or shortness of breath. He does occasionally feel a twinge across his chest which correlates with episodes of PVCs or bigeminy. The patient states that he had one other episode of passing out and that was back before he knew he had atrial fibrillation and seemed to be related to that. He has also noticed that over the past few weeks since the stent that he has been more fatigued. His states that he had one other event the past week or two where he just felt warm all over and was not sure what was going on. At that time she checked his heart rate and it was up over 100. He states that it then went away and his heart rate was checked again it was back in the 70s and he felt better. He is scheduled to see Dr. Mathias in the office on March 11 for consideration of atrial fibrillation ablation per the patient. PAST MEDICAL HISTORY 1. Atrial fibrillation. 2. Hyperlipidemia. 3. Coronary artery disease. PAST SURGICAL HISTORY 1. Cardiac catheterization (February 05, 2017) left main normal appearing. LAD proximal 20% followed by an 85% including the origin of the small second diagonal. The remainder of the LAD appears normal. Circumflex proximal is eccentric 20%. The RCA is a dominant vessel but somewhat small and has proximal 20% disease. PCI of the proximal LAD using a drug-eluting stent (3.5 x 12). 2. Previous atrial fibrillation ablations (May 06, 2011, June 29, 2012). 3. Tonsillectomy. ALLERGIES KETOROLAC. MEDICATIONS 1. Plavix 75 milligrams daily. 2. Pradaxa 150 milligrams b.i.d. 3. Digoxin 0.25 milligrams daily. 4. Crestor 40 milligrams daily. FAMILY HISTORY Denies premature coronary artery disease or sudden cardiac within the family. SOCIAL HISTORY The patient has a history of smoking half pack a day since the age of 38. He drinks rarely. REVIEW OF SYSTEMS 14-systems were reviewed including osteopathic, pertinent positives and negatives above, otherwise negative. PHYSICAL EXAMINATION VITAL SIGNS: Temperature 98.0, heart rate 57, blood pressure 133/78, respirations 16, pulse ox 99% on room air. GENERAL: The patient appears well in no acute distress, alert, awake and oriented x3. Extraocular muscles intact. Mucous membranes moist. NECK: Neck is supple. No JVD at 45 degrees. No carotid bruits heard bilaterally. Carotid upstroke is brisk in nature. HEART: Heart is regular rate and rhythm. Positive first and second heart sounds with no noted murmurs, gallops or rubs. LUNGS: Clear to auscultation bilaterally. No wheezes, rales or rhonchi. ABDOMEN: Soft, nontender, nondistended. No organomegaly noted. EXTREMITIES: Show no clubbing, cyanosis or edema. Femoral and distal pulses intact bilaterally. NEUROLOGICALLY: No focal deficits. SKIN: Warm, dry and intact. OSTEOPATHIC: No kyphoscoliosis, lordosis or paraspinal tender points. LABORATORY FINDINGS Hemoglobin 15.0, hematocrit 42.4, platelets 195. Potassium 4.1, BUN 12, creatinine 0.74. Troponin 0.02. CARDIOLOGY STUDIES Electrocardiogram (March 07, 2017 13:09) sinus rhythm with occasional PACs and PVCs. Possible left atrial enlargement. Nonspecific ST-T wave changes. IMPRESSION 1. Syncopal episode from unknown cause. 2. Coronary artery disease with recent PCI of LAD with a drug-eluting stent (March 08, 2017). 3. History of atrial fibrillation status post multiple atrial fibrillation ablations. 4. Tobacco abuse. 5. Hyperlipidemia. RECOMMENDATIONS 1. Mr. Luciano appears to have had an episode of syncope and this may be arrhythmogenic in nature. 2. We will have him watched in the hospital on telemetry for other possible arrhythmias. 3. He does have a history of atrial fibrillation and this may be part of what he is feeling as it appears he had another episode a week or two ago while in bed per his . 4. He is noted to have episodes of PACs and PVCs which may also potentiate some other type of arrhythmia. 5. We will check a 2-D echo to look at his overall left ventricular function, cardiac structure and possible vulvopathies. 6. We will plan on checking troponins for a complete set. 7. Depending on how he does we may consider discharging him tomorrow but if further arrhythmogenic events are noted he may need to stay until he can be evaluated by EP cardiology. Thank you for allowing me to see Rosales Luciano. If there are any questions please do not hesitate to call. Tom John DO VGP/EO /5:09 PM /5:28 PM
[2017-03-07] MEDS: METOPROLOL TARTRATE 25 MG TAB PO SCH (21:00)
[2017-03-07] MEDS: SODIUM CHLORIDE 0.9% FLUSH 10 ML FLUSH IV FLUSH SCH (21:00)
[2017-03-07] MEDS: DABIGATRAN ETEXILATE 150 MG CAP PO SCH (22:54)
--- NOTE | 2017-03-07 23:43 | EKG ---
Date Performed: 03/07/2017 Time Performed: 13:09:48 PTAGE: 61 years EKG: Sinus rhythm WITH FREQUENT VENTRICULAR PREMATURE COMPLEXES WITH OCCASIONAL SUPRAVENTRICULAR PREMATURE COMPLEXES P OSSIBLE LEFT ATRIAL ENLARGEMENT ABNORMAL RHYTHM ECG PREVIOUS TRACING : 02/05/2017 10.23 Compared to prior tracing no significant change DOCTOR: Tom Russell Interpretating Date/Time 03/07/2017 23:41:22
[2017-03-08] VITALS (12 sets, daily range): BP systolic 118–121; BP diastolic 53–70; PULSE 42–86; RESP 16–20; TEMP 97.4–98.1; O2SAT 93–98
[2017-03-08 01:19] LABS: AUTOMATED NEUTROPHIL # 4.3 TH/MM3 (1.8-7.7); BASOPHIL % 0.4 % (0.0-2.0); EOSINOPHIL # 0.2 TH/MM3 (0-0.4); EOSINOPHIL % 2.7 % (0.0-4.0); HEMATOCRIT 39.1 % (39.0-51.0); HEMO FLAGS DIFF FINAL; LYMPH % 32.8 % (9.0-44.0); LYMPHOCYTE # 2.6 TH/MM3 (1.0-4.8); MEAN CORPUSCULAR HEMOGLOBIN 34.6 PG (27.0-34.0); MEAN CORPUSCULAR HGB CONC 35.6 % (32.0-36.0); MONO % 9.7 % (0.0-8.0); NEUT % 54.4 % (16.0-70.0); PLATELET COUNT 170 TH/MM3 (150-450); RED BLOOD COUNT 4.03 MIL/MM3 (4.50-5.90); RED CELL DISTRIBUTION WIDTH 13.6 % (11.6-17.2); WHITE BLOOD COUNT 7.9 TH/MM3 (4.0-11.0)
[2017-03-08 01:35] LABS: ANION GAP 9 MEQ/L (5-15); BICARBONATE 22.9 MEQ/L (21.0-32.0); BLOOD UREA NITROGEN 14 MG/DL (7-18); CHLORIDE 109 MEQ/L (98-107); GLOMERULAR FILTRATION RATE 119 ML/MIN (>89); POTASSIUM 3.9 MEQ/L (3.5-5.1); SODIUM (NA) 141 MEQ/L (136-145)
[2017-03-08] MEDS: SODIUM CHLOR 0.45% 1000 ML INJ 1,000 ML IV SCH ×2 (03:43→18:30)
--- NOTE | 2017-03-08 07:40 | PD.VS.CON ---
History of Present Illness Chief Complaint: carotid stenosis Consult Requested by: Medical service History of Present Illness 61 yo male with CAD s/p [facility] with stent in January. Yesterday he was outside and had a syncopal event. He had no focal deficits and no slurred speech. [place] like "passing out" according to the patient. Does have a history of a-fib , s/p ablation 3 years ago. 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 Home Medications Reported Medications Rosuvastatin (Crestor) 40 Mg Tab, 40 MG PO DAILY for Cholesterol Management, # 30 TAB 0 Refills 03/07/17 Clopidogrel (Plavix) 75 Mg Tab, 75 MG PO DAILY for Blood Clot Prevention, #30 TAB 0 Refills 03/07/17 Dabigatran (Pradaxa) 150 Mg Cap, 150 MG PO BID for Blood Clot Prevention, #60 CAP 0 Refills 03/07/17 Digoxin (Digoxin) 0.25 Mg Tab, 0.25 MG PO DAILY for Regulate Heart Beat, #30 TAB 0 Refills 03/07/17 Discontinued Reported Medications Apixaban (Eliquis) 5 Mg Tab, 5 MG PO BID for Blood Clot Prevention, TAB 0 Refills 02/05/17 Digoxin 0.25 mg (Digoxin 0.25 mg) 0.25 Mg Tab, 0.25 MG PO DAILY 07/10/12 Rosuvastatin Calcium (Crestor) 40 Mg Tab, 40 MG PO HS 06/29/12 Aspirin (Aspirin) 81 Mg Tab, 81 MG PO DAILY 05/06/11 Coded Allergies: ketorolac (Unverified Allergy, Severe, 11/25/16) Review of Systems Cardiovascular: COMPLAINS OF: Chest pain, Syncope Physical Exam Vitals/I&O Date Time Temp Pulse Resp B/P (MAP) Pulse Ox O2 Delivery O2 Flow Rate FiO2 03/08/17 07:15 97.4 53 18 118/70 (86) 93 03/08/17 04:03 62 03/08/17 03:04 98.1 52 17 120/67 (84) 95 03/08/17 00:34 69 03/07/17 23:20 98.4 60 18 110/66 (81) 97 03/07/17 22:02 58 16 104/60 (75) 95 03/07/17 20:56 67 03/07/17 19:55 98.7 61 18 115/64 (81) 100 03/07/17 17:24 58 03/07/17 16:35 98.0 57 16 133/78 (96) 99 03/07/17 12:55 95 18 97 Room Air 03/07/17 12:55 18 98 Room Air 03/07/17 12:55 97 Room Air 03/07/17 12:55 98.3 80 18 119/59 (79) 98 Room Air Neuro: alert, oriented, no focal deficits, answers all questions appropriately HEENT: anicteric sclera, EOMI Neck: no JVD, trachea midline Heart: bradycardic, no m; appears regular Lungs: clear bilaterally Extremities: [place] with 5/5 strength; no focal defects Laboratory Tests Test 03/07/17 12:51 03/07/17 14:08 03/07/17 19:30 03/08/17 00:47 White Blood Count 8.7 7.9 Red Blood Count 4.39 4.03 Hemoglobin 15.0 13.9 Hematocrit 42.4 39.1 Mean Corpuscular Volume 96.6 97.0 Mean Corpuscular Hemoglobin 34.1 34.6 Mean Corpuscular Hemoglobin Concent 35.3 35.6 Red Cell Distribution Width 13.1 13.6 Platelet Count 195 170 Mean Platelet Volume 8.3 8.7 Neutrophils (%) (Auto) 57.6 54.4 Lymphocytes (%) (Auto) 31.9 32.8 Monocytes (%) (Auto) 8.1 9.7 Eosinophils (%) (Auto) 1.9 2.7 Basophils (%) (Auto) 0.5 0.4 Neutrophils # (Auto) 5.0 4.3 Lymphocytes # (Auto) 2.8 2.6 Monocytes # (Auto) 0.7 0.8 Eosinophils # (Auto) 0.2 0.2 Basophils # (Auto) 0.0 0.0 CBC Comment DIFF FINAL DIFF FINAL Differential Comment Prothrombin Time 12.0 Prothromb Time International Ratio 1.1 Activated Partial Thromboplast Time 33.4 Blood Urea Nitrogen 12 14 Creatinine 0.74 0.68 Random Glucose 98 88 Total Protein 6.7 Albumin 3.3 Calcium Level 8.3 8.1 Magnesium Level 1.8 Alkaline Phosphatase 86 Aspartate Amino Transf (AST/SGOT) 11 Alanine Aminotransferase (ALT/SGPT) 12 Total Bilirubin 0.4 Sodium Level 139 141 Potassium Level 4.1 3.9 Chloride Level 108 109 Carbon Dioxide Level 24.1 22.9 Anion Gap 7 9 Estimat Glomerular Filtration Rate 108 119 Total Creatine Kinase 76 Troponin I LESS THAN 0.02 LESS THAN 0.02 LESS THAN 0.02 Digoxin Level LESS THAN 0.1 Urine Color LIGHT-YELLOW Urine Turbidity CLEAR Urine pH 6.5 Urine Specific [place] 1.007 Urine Protein NEG Urine Glucose (UA) NEG Urine Ketones NEG Urine Occult Blood NEG Urine Nitrite NEG Urine Bilirubin NEG Urine Urobilinogen LESS THAN 2.0 Urine Leukocyte Esterase NEG Urine RBC 1 Urine WBC 1 Urine Squamous Epithelial Cells <1 Microscopic Urinalysis Comment CULT NOT INDICATED Urine Opiates Screen NEG Urine Barbiturates Screen NEG Urine Amphetamines Screen NEG Urine Benzodiazepines Screen NEG Urine Cocaine Screen NEG Urine Cannabinoids Screen NEG Last 48 hours Impressions Chest X-Ray 03/07/17 1241 Signed Impressions: Service Date/Time: Tuesday, March 07, 2017 12:59 - CONCLUSION: No acute disease. Jorge L Gamino MD Carotid Artery Ultrasound 03/07/17 0000 Signed Impressions: Service Date/Time: Tuesday, March 07, 2017 15:39 - CONCLUSION: 1. Moderate severity right proximal internal carotid artery disease with hemodynamic parameters characteristic of 50-70%% stenosis. 2. Normal hemodynamic profile on the left side. Pawan Christopher MD Assessment and Plan Plan Asymptomatic moderate carotid stenosis. I reviewed the duplex and based on velocity criteria, he has 50-79% R ICA stenosis and <50% L ICA stenosis. I think his syncopal event was cardiac in etiology and not related to the carotid stenosis. He is medically managed well with antiplatelet and statin therapy. Will arrange outpatient f/u in my clinic in 6m with carotid duplex. I discussed the ACAS data of an absolute risk reduction of 1% annually for CEA in patients like him. Defer to cardiology for more pressing medical needs: the patient c/o chest pain this morning and I am getting a stat EKG and I discussed with Dr. Russell who saw him yesterday. Tushar Antonio MD [facility] supervisor commissary production [facility] - Heart and Vascular Surgery at [facility] [phone] Tushar Antonio MD Mar 08, 2017 07:40
[2017-03-08] MEDS ORDERED: NITROGLYCERIN 0.4 MG SL 25 TABS/BTL SL PRN (08:45)
[2017-03-08] MEDS: CLOPIDOGREL 75 MG TAB PO SCH (09:34)
[2017-03-08] MEDS: DABIGATRAN ETEXILATE 150 MG CAP PO SCH (09:34)
[2017-03-08] MEDS: ATORVASTATIN 80 MG TAB PO SCH (09:35)
[2017-03-08] MEDS: SODIUM CHLORIDE 0.9% FLUSH 10 ML FLUSH IV FLUSH SCH ×2 (09:36→21:00)
[2017-03-08] MEDS: METOPROLOL TARTRATE 25 MG TAB PO SCH ×2 (11:38→21:19)
--- NOTE | 2017-03-08 11:51 | PD.CARD.PN ---
Subjective Subjective Remarks Chest pain this morning while walking across the room to the bathroom Described to the nurse as a sharp, but to me as dull and to the left shoulder Given 1 nitro and it seemed to help Objective Medications Current Medications Medications (Trade) Dose Ordered Sig/Pooja Route Start Time Stop Time Status Last Admin (NS Flush) 2 ml UNSCH PRN IVF 03/07/17 12:45 (Plavix) 75 mg DAILY PO 03/08/17 09:00 03/08/17 09:34 (Pradaxa) 150 mg BID PO 03/07/17 21:00 03/08/17 09:34 (Lipitor) 80 mg DAILY PO 03/08/17 09:00 03/08/17 09:35 Sodium Chloride 1,000 ml @ 75 mls/hr [id number] IV 03/07/17 14:23 03/07/17 16:41 (NS Flush) 2 ml UNSCH PRN IV FLUSH 03/07/17 14:30 (NS Flush) 2 ml BID IV FLUSH 03/07/17 21:00 03/08/17 09:36 (Narcan Inj) 0.4 mg UNSCH PRN IV PUSH 03/07/17 14:30 (Milk Of Magnesia Liq) 30 ml Q12H PRN PO 03/07/17 14:30 (Senokot) 17.2 mg Q12H PRN PO 03/07/17 14:30 (Dulcolax Supp) 10 mg DAILY PRN RECTAL 03/07/17 14:30 (Lactulose Liq) 30 ml DAILY PRN PO 03/07/17 14:30 (Lopressor) 25 mg Q12HR PO 03/07/17 21:00 03/08/17 11:38 (Nitrostat Sl) 0.4 mg Q5M PRN SL 03/08/17 08:45 03/08/17 08:41 Vital Signs / I&O Vital Signs Date Time Temp Pulse Resp B/P (MAP) Pulse Ox O2 Delivery O2 Flow Rate FiO2 03/08/17 11:21 98.0 42 16 121/59 (79) 98 03/08/17 08:48 Nasal Cannula 2.00 03/08/17 07:15 97.4 53 18 118/70 (86) 93 03/08/17 04:03 62 03/08/17 03:04 98.1 52 17 120/67 (84) 95 03/08/17 00:34 69 03/07/17 23:20 98.4 60 18 110/66 (81) 97 03/07/17 22:02 58 16 104/60 (75) 95 03/07/17 20:56 67 03/07/17 19:55 98.7 61 18 115/64 (81) 100 03/07/17 17:24 58 03/07/17 16:35 98.0 57 16 133/78 (96) 99 03/07/17 12:55 95 18 97 Room Air 03/07/17 12:55 18 98 Room Air 03/07/17 12:55 97 Room Air 03/07/17 12:55 98.3 80 18 119/59 (79) 98 Room Air I/O 03/07/17 03/07/17 03/07/17 03/08/17 03/08/17 03/08/17 07:00 15:00 23:00 07:00 15:00 23:00 Intake Total 1000 ml Balance 1000 ml Intake IV Total 1000 ml # Voids 3 Physical Exam GENERAL: NAD, AAOx3 SKIN: Warm and dry. HEAD: Atraumatic. Normocephalic. EYES: Pupils equal and round. No scleral icterus. No injection or drainage. ENT: No nasal bleeding or discharge. Mucous membranes pink and moist. NECK: Trachea midline. No JVD. CARDIOVASCULAR: Regular rhythm, bradycardic RESPIRATORY: No accessory muscle use. Clear to auscultation. Breath sounds equal bilaterally. GASTROINTESTINAL: Abdomen soft, non-tender, nondistended. Hepatic and splenic margins not palpable. MUSCULOSKELETAL: Extremities without clubbing, cyanosis, or edema. No obvious deformities. NEUROLOGICAL: Awake and alert. No obvious cranial nerve deficits. Motor grossly within normal limits. Five out of 5 muscle strength in the arms and legs. Normal speech. PSYCHIATRIC: Appropriate mood and affect; insight and judgment normal. Laboratory Laboratory Tests Test 03/07/17 12:51 03/07/17 14:08 03/07/17 19:30 03/08/17 00:47 White Blood Count 8.7 TH/MM3 7.9 TH/MM3 Red Blood Count 4.39 MIL/MM3 4.03 MIL/MM3 Hemoglobin 15.0 GM/DL 13.9 GM/DL Hematocrit 42.4 % 39.1 % Mean Corpuscular Volume 96.6 FL 97.0 FL Mean Corpuscular Hemoglobin 34.1 PG 34.6 PG Mean Corpuscular Hemoglobin Concent 35.3 % 35.6 % Red Cell Distribution Width 13.1 % 13.6 % Platelet Count 195 TH/MM3 170 TH/MM3 Mean Platelet Volume 8.3 FL 8.7 FL Neutrophils (%) (Auto) 57.6 % 54.4 % Lymphocytes (%) (Auto) 31.9 % 32.8 % Monocytes (%) (Auto) 8.1 % 9.7 % Eosinophils (%) (Auto) 1.9 % 2.7 % Basophils (%) (Auto) 0.5 % 0.4 % Neutrophils # (Auto) 5.0 TH/MM3 4.3 TH/MM3 Lymphocytes # (Auto) 2.8 TH/MM3 2.6 TH/MM3 Monocytes # (Auto) 0.7 TH/MM3 0.8 TH/MM3 Eosinophils # (Auto) 0.2 TH/MM3 0.2 TH/MM3 Basophils # (Auto) 0.0 TH/MM3 0.0 TH/MM3 CBC Comment DIFF FINAL DIFF FINAL Differential Comment Prothrombin Time 12.0 SEC Prothromb Time International Ratio 1.1 RATIO Activated Partial Thromboplast Time 33.4 SEC Blood Urea Nitrogen 12 MG/DL 14 MG/DL Creatinine 0.74 MG/DL 0.68 MG/DL Random Glucose 98 MG/DL 88 MG/DL Total Protein 6.7 GM/DL Albumin 3.3 GM/DL Calcium Level 8.3 MG/DL 8.1 MG/DL Magnesium Level 1.8 MG/DL Alkaline Phosphatase 86 U/L Aspartate Amino Transf (AST/SGOT) 11 U/L Alanine Aminotransferase (ALT/SGPT) 12 U/L Total Bilirubin 0.4 MG/DL Sodium Level 139 MEQ/L 141 MEQ/L Potassium Level 4.1 MEQ/L 3.9 MEQ/L Chloride Level 108 MEQ/L 109 MEQ/L Carbon Dioxide Level 24.1 MEQ/L 22.9 MEQ/L Anion Gap 7 MEQ/L 9 MEQ/L Estimat Glomerular Filtration Rate 108 ML/MIN 119 ML/MIN Total Creatine Kinase 76 U/L Troponin I LESS THAN 0.02 NG/ML LESS THAN 0.02 NG/ML LESS THAN 0.02 NG/ML Digoxin Level LESS THAN 0.1 NG/ML Urine Color LIGHT-YELLOW Urine Turbidity CLEAR Urine pH 6.5 Urine Specific [place] 1.007 Urine Protein NEG mg/dL Urine Glucose (UA) NEG mg/dL Urine Ketones NEG mg/dL Urine Occult Blood NEG Urine Nitrite NEG Urine Bilirubin NEG Urine Urobilinogen LESS THAN 2.0 MG/DL Urine Leukocyte Esterase NEG Urine RBC 1 /hpf Urine WBC 1 /hpf Urine Squamous Epithelial Cells <1 /hpf Microscopic Urinalysis Comment CULT NOT INDICATED Urine Opiates Screen NEG Urine Barbiturates Screen NEG Urine Amphetamines Screen NEG Urine Benzodiazepines Screen NEG Urine Cocaine Screen NEG Urine Cannabinoids Screen NEG Test 03/08/17 08:56 Troponin I LESS THAN 0.02 NG/ML Thyroid Stimulating Hormone 3rd Gen 1.310 uIU/ML Imaging Last 24 hours Impressions Chest X-Ray 03/07/17 1241 Signed Impressions: Service Date/Time: Thursday, March 07, 2017 12:59 - CONCLUSION: No acute disease. Jorge L Gamino MD Assessment and Plan Problem List: (1) Chest pain ICD Codes: R07.9 - Chest pain, unspecified (2) Atrial bigeminy ICD Codes: I49.8 - Other specified cardiac arrhythmias (3) Afib ICD Codes: I48.91 - Unspecified atrial fibrillation (4) Cardiac arrhythmia, unspecified ICD Codes: I49.9 - Cardiac arrhythmia, unspecified Status: Acute (5) Syncope and collapse ICD Codes: R55 - Syncope and collapse Status: Acute Assessment and Plan 1) Chest pain Somewhat concerning, relieved with nitro EKG with no changes Discussed with Dr. Garcia, will plan for cardiac catheterization in the morning Pradaxa will be held, ASA 81mg tomorrow in lieu of Pradaxa 2) Syncope Unknown cause Await echo results 3) Hx of Afib s/p [address] Mathias on Thursday outpatient Appears to be having repeat episodes... possible cause of syncope? Problem Qualifiers (1) Cardiac arrhythmia, unspecified: Qualified Codes: I49.8 - Other specified cardiac arrhythmias Tom Russell DO Mar 08, 2017 11:51
--- NOTE | 2017-03-08 13:56 | HHI.PR ---
Subjective Remarks Patient says he is feeling alright today. He did have an episode of chest pain this morning which resolved with nitroglycerin. I discussed case with cardiology, patient will have catheterization tomorrow morning. Objective Vital Signs Date Time Temp Pulse Resp B/P (MAP) Pulse Ox O2 Delivery O2 Flow Rate FiO2 03/08/17 11:21 98.0 42 16 121/59 (79) 98 03/08/17 08:48 Nasal Cannula 2.00 03/08/17 08:00 72 03/08/17 07:15 97.4 53 18 118/70 (86) 93 03/08/17 04:03 62 03/08/17 03:04 98.1 52 17 120/67 (84) 95 03/08/17 00:34 69 03/07/17 23:20 98.4 60 18 110/66 (81) 97 03/07/17 22:02 58 16 104/60 (75) 95 03/07/17 20:56 67 03/07/17 19:55 98.7 61 18 115/64 (81) 100 03/07/17 17:24 58 03/07/17 16:35 98.0 57 16 133/78 (96) 99 I/O 03/07/17 03/07/17 03/07/17 03/08/17 03/08/17 03/08/17 07:00 15:00 23:00 07:00 15:00 23:00 Intake Total 1000 ml Balance 1000 ml Intake IV Total 1000 ml # Voids 3 Result Diagram: 03/08/17 0047 03/08/17 0047 Objective Remarks GENERAL: Patient sitting up in bed. Appears comfortable. SKIN: Warm and dry. HEAD: Normocephalic. EYES: No scleral icterus. No injection or drainage. NECK: Supple, trachea midline. No JVD or lymphadenopathy. CARDIOVASCULAR: Irregularly irregular rhythm. RESPIRATORY: Breath sounds equal bilaterally. No accessory muscle use. GASTROINTESTINAL: Abdomen soft, non-tender, nondistended. MUSCULOSKELETAL: No cyanosis, or edema. BACK: Nontender without obvious deformity. No CVA tenderness. A/P Assessment and Plan 61-year-old male with past medical history significant for coronary artery disease status post recent cardiac catheterization and stent implant 02/05/17 and atrial fibrillation who presents to [facility] with complaints of syncopal event while standing in line for some water at the [place] earlier today. //Chest pain in patient with known history of CAD status post previous cardiac catheterization with cardiac stent implant 02/05/17, r/o ACS - EKG personally reviewed shows normal sinus rhythm with occasional PVCs and frequent SVC's - Initial troponin less than 0.02. 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 - heart healthy diet = 03/08. Patient with chest pain this morning. Resolved with nitroglycerin. Discussed with cardiology. Urology will plan for catheterization tomorrow morning. //Syncope/near syncopal episode - UDS negative - IVF hydration - Obtain echocardiogram - Holter monitor - Carotid ultrasound completed - Moderate severity right proximal internal carotid artery disease with hemodynamic parameters characteristic of 50-70% stenosis. Consult Vascular surgery. - Continue his cardiac monitoring - Fall precautions = 03/08. Appreciate Vascular surgery assistance. Follow with vascular surgery as outpatient. Continue medication. //Atrial fibrillation - rate controlled - Continue patient on home dose of Pradaxa 150mg BID - Continue patient on Metoprolol 25mg BID -03/08 Rate controlled on metoprolol. Rate recorded as 42 today around 11 AM. However heart rate on telemetry has never gone below 50 bpm, is currently in the 80s. //Tobaccoism - discussed importance of cessation //DVT prophylaxis - patient is on Pradaxa Discharge Planning Cardiac catheter tomorrow. Pending cardiology clearance. Alvaro Gonzales MD Mar 08, 2017 1:56 pm
--- NOTE | 2017-03-08 21:29 | EKG ---
Date Performed: 03/08/2017 Time Performed: 07:39:59 PTAGE: 61 years EKG: Sinus rhythm WITH VENTRICULAR PREMATURE COMPLEXES WITH SUPRAVENTRICULAR PREMATURE COMPLEXES POSSIBLE LEFT ATRIAL ENLARGEMENT ABNORMAL RHYTHM ECG NO PREVIOUS TRACING DOCTOR: Keagan Vogt Interpretating Date/Time 03/08/2017 21:27:55
[2017-03-09] VITALS (9 sets, daily range): BP systolic 100–122; BP diastolic 62–68; PULSE 46–86; RESP 18; TEMP 98–98.4; O2SAT 93–96
--- NOTE | 2017-03-09 00:54 | EKG ---
Date Performed: 03/08/2017 Time Performed: 00:13:06 PTAGE: 61 years EKG: Sinus rhythm WITH OCCASIONAL VENTRICULAR PREMATURE COMPLEXES WITH OCCASIONAL SUPRAVENTRICULAR PREMATURE COMPLEXES POSSIBLE LEFT ATRIAL ENLARGEMENT BORDERLINE ECG PREVIOUS TRACING : 03/07/2017 21.02 Compared to the previous tracing, besides PVCs/PACs, no sig nificant change DOCTOR: Tom Russell Interpretating Date/Time 03/09/2017 00:53:59
--- NOTE | 2017-03-09 00:57 | EKG ---
Date Performed: 03/07/2017 Time Performed: 21:02:57 PTAGE: 61 years EKG: Sinus rhythm NONSPECIFIC T-WAVE ABNORMALITY BORDERLINE ECG PREVIOUS TRACING : 03/07/2017 13.09 Compared to the previous tracing, no significant change oth er than PACs no longer noted DOCTOR: Tom Russell Interpretating Date/Time 03/09/2017 00:56:43
[2017-03-09] MEDS: SODIUM CHLOR 0.45% 1000 ML INJ 1,000 ML IV SCH ×2 (06:23→19:43)
[2017-03-09] MEDS ORDERED: MIDAZOLAM HCL 2 MG/2 ML VIAL ONE ×3 (07:10→07:54)
[2017-03-09] MEDS ORDERED: HEPARIN-NS/PF INJ 500 ML ONE (07:10)
[2017-03-09] MEDS ORDERED: HEPARIN SODIUM - IV 10,000 UNITS/10 ML VIAL ONE (07:11)
[2017-03-09] MEDS ORDERED: NITROGLYCERIN INJ 5 ML ONE (07:11)
[2017-03-09] MEDS ORDERED: VERAPAMIL HCL 5 MG/2 ML VIAL ONE (07:24)
--- NOTE | 2017-03-09 08:27 | CATHPROC ---
Social DJ HIS Report Study Information Study Number Admission Scheduled Start Study Start [id number] Mar 07 2017 6:10PM 03/08/2017 Mar 09 2017 7:08AM [place] [facility] Cardiac Catheterization Admit Source Facility Department Emergency department [facility] Department Physician and Clinical Staff Initial Venu Teresa Machine Lead Burner Brandy Khoury,CASIMIRO Other cathlab, cathlab Recorder Kecia Mary,RT(R) ScrNamrata Carrasco,RT(R) (BS) Procedures Performed Procedure Location (Site) Vessel Name Coronary Angiograms LCA Left Coronary Coronary Angiograms RCA Right Coronary L Heart Cath LV Gram-hand inj. LV LV Ventricle Equipment Time Garnett Machine Operator Description Size Mfg Part Number Used/Scraped TRANSDUCER, TRUWAVE [id number] 07:10 OBRIEN VERDUZCO * Used W/STOCKCOCK *[id number] 534-518T *[id number] 534-520T *[id number] [id number] *[id number] [id number] *[id number] 07:10 [employer] INDUSTRIES PACK, CCL CUSTOM * Used *[id number] 07:10 [employer] PACER PEN, SKIN DUAL W/ RULER * Used *[id number] BAND, RADIAL COMPRESSION TR [id number] 08:14 [employer] 24CM Used SHORT 24 *[id number] 07:52 [employer] WIRE, EXCHANGE 260CM 3MMJ 260CM Used *[id number] 07:10 NAMIC MANIFOLD, 4 PORT * Used *[id number] 07:10 [employer] OMNIPAQUE, 350 MG, 100ML 100ML [id number] Used [id number] 07:10 [facility] BLANKET,WARM AIR CCL * Used *[id number] SHEATH, FR6 TRANSRADIAL [id number] 07:44 [employer] FR 6 Used SLENDER 10CM *[id number] SHEATH, FR6 TRANSRADIAL RM*[id number] Scrap: device 08:13 [employer]ICAL FR 6 SLENDER 10CM *[id number] failure History: Current Medications Medication Dosage/Unit Route Frequency Last Date/Time Taken 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 LOPRESSOR PRADAXA PLAVIX LIPITOR History: Allergies Allergy Reaction ketorolac History: Risk Factors Family History of Hypertension Dyslipidemia Previous CA Previous Heart Failure Premature CAD Yes Yes No No No Prior Valve Prior PCI Prior PCIDate Prior CABG Surgery No Yes 02/05/2017 No Cerebrovascular Peripheral Artery Chronic Lung On Dialysis Diabetes Disease Disease Disease No No No No No History: Symptoms/Diagnosis Selection Items Syncope History: Stress Tests Stress or Imaging Studies Performed Yes Standard Exercise Stress Stress Test Result Stress Test Ischemia Risk/Extent Test Yes Positive Intermediate Stress Echo No Stress Test SPECT No Stress Test CMR No Cardiac CTA Coronary Calcium Score No No History: Arrhythmias Selection Items Atrial fibrillation History: Other Disease Selection Items CAD History: CA/CV Data Previous Cath Date 02/05/2017 History: Other Current Smoker Method Packs a Day Years Used Pack Years Yes Cigarettes 1 21 21 Labs Hgb (g/dl) Hct (%) WBC (l/cumm) Platelets (thousands) 11.60-17.00 35.00-51.00 4.00-11.00 150.00-450.00 13.9 39.1 7.9 170 Glucose (mg/dl) BUN (mg/dl) Creatinine (mg/dl) BUN:Creatinine (1:x) 74.00-106.00 7.00-18.00 0.50-1.30 10.00-20.00 88 14 0.6 23.3 Na (meq/l) K (meq/l) 136.00-145.00 3.50-5.10 141 3.9 INR (PTT:PT) 0.90-1.10 1.1 Troponin I (ng/ml) CPK (u/l) CPK-MB (ng/ML) 0.02-0.05 26.00-308.00 0.50-3.60 0.02 76 Not Drawn Medication Medication Total Dose (Bolus/Oral) Medication Total Dosage/Unit 1% XYLOCAINE 20 mL FENTANYL 100 mcg RADIAL COCKTAIL 10 mL (Bolus) VERSED 4 mg Medications (Bolus/Oral) Medication Time Given Dosage/Unit Administered By Reason VERSED 03/09/2017 7:39:32 AM 2 mg Brandy Khoury 2 mg VERSED given in lab by Brandy Khoury, RN in Left Forearm via Peripheral IV. Ordered by Venu Garcia. 1% XYLOCAINE 03/09/2017 7:41:01 AM 20 mL Venu Garcia 20 mL 1% XYLOCAINE given in lab by Venu Garcia in Right Radial via Subcutaneous. FENTANYL 03/09/2017 7:41:31 AM 50 mcg Brandy Khoury 50 mcg FENTANYL given in lab by Brandy Khoury RN in Left Forearm via Peripheral IV. Ordered by Venu Stovall. Ntg 200mcg Verapamil 2.5mg Heparin RADIAL COCKTAIL 03/09/2017 7:43:21 AM 5 mL (Bolus) Venu Garcia 2500U 5 mL (Bolus) RADIAL COCKTAIL given in lab by Venu Garcia in Right Radial via Radial. Using [Solutio n Name]. Ordered by Venu Garcia. Reason: Ntg 200mcg Verapamil 2.5mg Heparin 2500U. VERSED 03/09/2017 7:43:24 AM 1 mg Brandy Khoury 1 mg VERSED given in lab by Brandy Khoury RN in Left Forearm via Peripheral IV. Ordered by Venu Garcia. FENTANYL 03/09/2017 7:46:07 AM 50 mcg Brandy Khoury 50 mcg FENTANYL given in lab by Brandy Khoury RN in Left Forearm via Peripheral IV. Ordered by Venu Stovall. VERSED 03/09/2017 7:52:37 AM 1 mg Brandy Khoury 1 mg VERSED given in lab by Brandy Khoury RN in Left Forearm via Peripheral IV. Ordered by Venu Garcia. RADIAL COCKTAIL 03/09/2017 8:00:31 AM 5 mL (Bolus) Venu Garcia 5 mL (Bolus) RADIAL COCKTAIL given in lab by Brandy Khoury RN via Radial. Using [Solution Name]. O rdered by Venu Garcia. Reason: Ntg 200mcg Verapamil 2500U. Medication (Drip) Medication Time Given Dosage/Unit Concentration/Unit Diluent (ml) Solution IV Solutions 03/09/2017 7:08:37 AM 0 mL (IV) 500 NaCl .9 IV Solutions given in lab by Brandy Khoury RN in Left Forearm via Peripheral IV. Pump/Drip Flow = 20 ml/hr using NaCl .9. Ordered by Venu Garcia. Initial Case Assessment Cardiovascular HR Rhythm NIBP Chest Pain 67 nsr 147/93 0 Edema Present Skin color Skin None Normal Warm Dry Circulatory - Right Pulses Dorsalis Pedis Femoral Radial 2 2 2 Scale (0,1,2,3,4,d) Circulatory - Left Pulses Dorsalis Pedis Femoral Radial 2 2 Scale (0,1,2,3,4,d) Neurological State Oriented to time-place- Alert Moves all extremities person Respiration - General Respiration Rate SpO2 (%) (B/min) 15 97 Chronological Log Time Study Chronological Log 7:08:27 Patient arrived via Bed. 7:08:28 Patient Name, D.O.B, / Armband Verified By R.N. 7:08:29 Consent signed by the physician and the patient and verified by the Dispatcher [facility] Department staff. 7:08:29 Pre-op and post- op instructions given; patient acknowledges understanding of instructions. 7:08:30 Verbal Stimulation=2 Physical Stimulation=2 Airway=2 Respiration=2 TOTAL=8. (0=absent, 1=li mited, 2=present) 7:08:30 Presedation assessment performed by Dispatcher [facility] Department RN. 7:08:31 Immediate Presedation assesment performed by physician. 7:08:32 Patient has been NPO for More than 6Hrs. 7:08:33 Skin Breakdown- abrasions on left arm, left bravo, right thigh 7:08:33 Patient Warmer Placed on the Table. 7:08:34 Mya Prominences Protected 7:08:35 A # 20 IV was noted in the Forearm (left). Grade = patent 7:08:36 A # 20 IV was noted in the Forearm (left). Grade = patent IV Solutions given in lab by Brandy Khoury, RN in Left Forearm via Peripheral IV. Pump/Drip F low = 20 ml/hr using 7:08:37 NaCl .9. Ordered by Venu Garcia. 7:08:37 History and physical on the chart or being dictated. Vitals capture started with the following parameters, Patient=Adult, Interval=5 min, Initial Pr oekdrc=546 mmHg, 7:13:59 Deflation Rate=5 mmHg, Cuff placed on Left Arm Assessment: Initial Case, HR=67 BPM, Rhythm=nsr, AYBT=747/93 mmhg, Chest Pain=0, Edema=None, Col or=Normal, Skin = Warm, Dry Right Pulses: Brad Ped=2, Femoral=2, Radial=2 7:14:00 Left Pulses: Brad Ped=2, Femoral=2 Neurological: State=Alert, Ox3, WALLACE Respiration: Resp=15 B/min, SpO2=97 % 7:14:19 Reference ECG taken 7:14:40 HR=65 bpm, KPDU=562/93 mmhg, SpO2=98.0 %, Resp=15 B/min, Pain=0, Barrera=10, Martel=2 7:19:41 HR=66 bpm, HJYX=689/76 mmhg, SpO2=96.0 %, Resp=11 B/min, Pain=0, Barrera=10, Martel=2 7:23:14 Allens test performed on the right radial and ulnar artery. POSITIVE. 7:24:42 HR=61 bpm, XRXX=829/78 mmhg, SpO2=94.0 %, Resp=11 B/min, Pain=0, Barrera=10, Martel=2 7:25:34 Right Radial and groin(s) prepped with 2% chlorhexidine, and draped after a 3 min. waiting t preston. 7:26:53 MD paged 7:30:16 HR=61 bpm, AYKJ=116/80 mmhg, SpO2=93.0 %, Resp=13 B/min, Pain=0, Barrera=10, Martel=2 7:30:36 Pressure channel 1 zeroed. 7:33:11 MD arrived. 7:34:34 HR=61 bpm, RJUO=981/70 mmhg, SpO2=96.0 %, Resp=8 B/min Time Out. Correct patient, correct procedure, correct physician, power injector loaded, or not l oaded with contrast with 7:39:08 surgical team present. Time Out Concurred by MD and individual staff in procedure. 7:39:32 2 mg VERSED given in lab by Brandy Khoury, RN in Left Forearm via Peripheral IV. Ordered Venu Flowers. 7:39:55 Case Start 7:40:26 HR=63 bpm, BIIJ=347/75 mmhg, SpO2=93.0 %, Resp=17 B/min 7:41:01 20 mL 1% XYLOCAINE given in lab by Venu Garcia in Right Radial via Subcutaneous. 7:41:31 50 mcg FENTANYL given in lab by Brandy Khoury, RN in Left Forearm via Peripheral IV. Order ed by Venu Garcia. 7:42:26 Access site was Brachial Artery. Right A SHEATH, FR6 TRANSRADIAL SLENDER 10CM FR 6 was advanced into the Radial (right) using the Adams enriquez 7:42:42 technique. 5 mL (Bolus) RADIAL COCKTAIL given in lab by Venu Garcia in Right Radial via Radial. Using [So lution Name]. 7:43:21 Ordered by Venu Garcia. Reason: Ntg 200mcg Verapamil 2.5mg Heparin 2500U. 7:43:24 1 mg VERSED given in lab by Brandy Khoury, CASIMIRO in Left Forearm via Peripheral IV. Ordered emily mills Venu Garcia. 7:44:40 HR=64 bpm, FLAU=975/58 mmhg, SpO2=91 %, Resp=15 B/min A JL 4.0 INFINITI CATHETER FR 5 was advanced over a wire. OMNIPAQUE, 350 MG, 100ML 100ML was use d for 7:45:39 injections. 7:46:07 50 mcg FENTANYL given in lab by Brandy Khoury RN in Left Forearm via Peripheral IV. Order ed by Venu Garcia. 7:49:39 HR=70 bpm, YJZR=018/64 mmhg, SpO2=92 %, Resp=17 B/min After removing the current catheter a JL 3.5 INFINITI CATHETER FR 5 was advanced over a WIRE, EX CHANGE 260CM 7:51:44 3MMJ 260CM. Unable to cannulate LCA. 7:52:37 1 mg VERSED given in lab by Brandy Khoury, CASIMIRO in Left Forearm via Peripheral IV. Ordered emily mills Venu Garcia. 7:54:40 HR=60 bpm, QQIX=683/70 mmhg, SpO2=91.0 %, Resp=4 B/min 7:54:46 The LCA was injected and visualized at various angles. OMNIPAQUE, 350 MG, 100ML 100ML used. Recorded Pressure: Ao, HR=63, Condition=Condition 1 7:55:46 (Aorta) Ao 108/67/85 7:56:15 Patient complaining of chest pressure 7:58:58 Catheter was removed 7:59:41 HR=57 bpm, DMSD=542/61 mmhg, SpO2=91.0 %, Resp=22 B/min 5 mL (Bolus) RADIAL COCKTAIL given in lab by Brandy Khoury, CASIMIRO via Radial. Using [Solution Nam e]. Ordered by 8:00:31 Venu Garcia. Reason: Ntg 200mcg Verapamil 2500U. A JR 5.0 INFINITI CATHETER FR 5 was advanced over a wire. OMNIPAQUE, 350 MG, 100ML 100ML was u sed for 8:02:00 injections. 8:03:17 The RCA was injected and visualized at various angles. OMNIPAQUE, 350 MG, 100ML 100ML use d. 8:04:42 HR=80 bpm, ENQE=752/59 mmhg, SpO2=90 %, Resp=9 B/min After removing the current catheter a PIGTAIL ANG. INFINITI CATHETER FR 4 was advanced over a WIRE, EXCHANGE 8:05:37 260CM 3MMJ 260CM. 8:08:48 The LV was manually injected with 8 cc's and visualized. OMNIPAQUE, 350 MG, 100ML 100ML us ed. Recorded Pressure: LV, HR=74, Condition=Condition 1 8:09:26 (Left Ventricle) LV 112/2/6 Recorded Pressure: LV, Ao, HR=74, Condition=Condition 1 8:09:36 (Left Ventricle) LV 94/2/11, (Aorta) Ao 95/60/77 8:10:14 Catheter was removed 8:10:16 HR=64 bpm, JGYO=002/66 mmhg, SpO2=88.0 %, Resp=17 B/min 8:13:00 Case End Radial Compression Device Used. 11 mLs of air placed in BAND, RADIAL COMPRESSION TR SHORT 24 2 4CM. Affected 8:13:49 hand 94 % O2 saturation. 8:14:46 HR=61 bpm, POIG=609/55 mmhg, SpO2=90.0 %, Resp=13 B/min 8:19:37 HR=65 bpm, HJQN=519/99 mmhg, SpO2=94 %, Resp=7 B/min 8:20:00 No case complications noted. 8:20:03 Bedside Report will be given. 8:20:10 A Left Heart Cath was performed. 8:23:00 [facility] Study - Contrast Media Used In Study Contrast Total Opened (mL) Total Used (mL) Total Wasted (mL) Omnipaque 45 45 0 End Study - Maximum Contrast Load Max Contrast Load (mL) 787.9 End Study - Radiation Exposure Fluoro Time (minutes) 12.1 End Study - Patient Disposition Complications Transferred To Interventional Outcome No Telemetry Bed No attempt made
[2017-03-09] MEDS ORDERED: oxyCODONE/ACETAMINOPHEN 5 MG/325 MG TAB PO PRN (08:30)
--- NOTE | 2017-03-09 08:49 | MA ---
cc: JUAN NINO M.D. DATE: 03/09/2017 PROCEDURE PERFORMED Left heart catheterization, left ventriculography, coronary angiography, right radial arterial access. BRIEF HISTORY Rosales Luciano is a 61-year-old man who had stenting of his left anterior descending artery a little over a month ago. This was a 3-1/2 x 12 mm Resolute Markesan stent deployed at 14 atmospheres in the proximal LAD. He comes in now after having an episode of syncope. He has had known paroxysmal atrial fibrillation. He is on Plavix and Pradaxa at this point. He had chest pain when he had the syncopal episode and chest pain yesterday in the hospital. DESCRIPTION OF PROCEDURE The patient was brought to the cardiac quality control lab technician in a fasting state. The right wrist was prepped and draped in sterile fashion. He received a total of 4 mg of IV Versed and 100 mcg of IV Fentanyl during the case for sedation. Using 1% lidocaine for local anesthesia a Terumo slender sheath was inserted requiring only one stick. Next, coronary angiography was completed. I started with the left 4 and switched to a left 3.5 Kourtney for left coronary artery. I used a JR-5 for the right coronary artery and had an angled pigtail catheter for the LV pressure, LV gram and pullback. The sheath was removed and a Terumo band placed without complications. Standard cocktail was given during the procedure with heparin, nitroglycerin and verapamil. FINDINGS 1. Hemodynamics. Left ventricular pressure was 94/2 with an end-diastolic pressure of 11. The aortic pressure was 95/60 with a mean of 77. There was no gradient during pullback from left ventricle to the aorta. 2. Left ventriculography. Left ventriculography shows a symmetrically bea left ventricle. Estimated ejection fraction of 60%. 3. Coronary angiography. Coronary circulation is right-dominant. Left main coronary artery appears normal. Proximal LAD has an eccentric 25% proximal stenosis with small diagonal branch given off. Further down the proximal LAD near the first septal and second diagonal is the previously placed stent which is widely patent with no stenosis. The remainder of the LAD has ___ irregularities. Circumflex artery has about 20% eccentric proximal stenosis. Major obtuse marginal branch and distal circumflex appear normal. The right coronary artery has two focal ectatic areas, one proximally and one mid. There is about a 25% stenosis after the one in the midsegment. The remainder of the right coronary artery appears normal. CONCLUSION 1. Normal hemodynamics. 2. Normal left ventricular function. 3. Continued wide patency of the previous LAD stent. 4. No areas require revascularization. RECOMMENDATIONS Consider going ahead with atrial fibrillation ablation at this point. MD MANSOOR Easton/ADÁN /8:33 AM /8:42 AM
[2017-03-09] MEDS: CLOPIDOGREL 75 MG TAB PO SCH (09:00)
[2017-03-09] MEDS: SODIUM CHLORIDE 0.9% FLUSH 10 ML FLUSH IV FLUSH SCH ×2 (09:00→21:09)
[2017-03-09] MEDS ORDERED: ENOXAPARIN SODIUM 100 MG/ML SYRINGE SQ ONE (09:00)
[2017-03-09] MEDS: ATORVASTATIN 80 MG TAB PO SCH (09:00)
[2017-03-09] MEDS: METOPROLOL TARTRATE 25 MG TAB PO SCH ×2 (09:00→21:09)
[2017-03-09] MEDS ORDERED: IOHEXOL 350 MG/ML 50 ML BTL (for Cath Lab) OTHER ONE (15:28)
--- NOTE | 2017-03-09 17:34 | ECHRPT ---
Indication: syncope CONCLUSIONS The transthoracic study is normal by two-dimensional, color flow imaging and Doppler interrogation. BP: 121 / 59 HR: 86 Rhythm: MEASUREMENTS (Male / Female) Normal Values Technical Quality:Fair 2D ECHO LV Diastolic Diameter PLAX 4.6 cm 4.2 - 5.9 / 3.9 - 5.3 cm LV Systolic Diameter PLAX 3.1 cm IVS Diastolic Thickness 1.0 cm 0.6 - 1.0 / 0.6 - 0.9 cm LVPW Diastolic Thickness 1.2 cm 0.6 - 1.0 / 0.6 - 0.9 cm LV Relative Wall Thickness 0.5 RV Internal Dim ED PLAX 2.1 cm M-MODE Aortic Root Diameter MM 3.5 cm LA Systolic Diameter MM 3.5 cm LA Ao Ratio MM 1.0 AV Cusp Separation MM 2.0 cm DOPPLER Mitral E Point Velocity 82.8 cm/s Mitral A Point Velocity 78.7 cm/s Mitral E to A Ratio 1.1 FINDINGS LEFT VENTRICLE Normal left ventricular size and wall thickness. The left ventricular systolic function is normal wi th an estimated ejection fraction in the range of 60-65%. Left ventricular diastolic function parameters a re normal. RIGHT VENTRICLE Normal right ventricular size and systolic function. LEFT ATRIUM The left atrial size is normal. RIGHT ATRIUM The right atrial size is normal. ATRIAL SEPTUM Normal atrial septal thickness without atrial level shunting by limited color doppler interrogation. AORTA The aortic root and proximal ascending aorta are not well visualized. MITRAL VALVE Structurally normal mitral valve. No mitral valve stenosis or regurgitation. AORTIC VALVE Trileaflet aortic valve. No aortic valve stenosis or regurgitation. TRICUSPID VALVE Structurally normal tricuspid valve. No tricuspid valve stenosis or regurgitation. PULMONARY VALVE The pulmonary valve is not well visualized. No pulmonary valve regurgitation. VESSELS The inferior vena cava was not well visualized. PERICARDIUM No pericardial effusion. Venu Garcia MD (Electronically Signed) Final Date:09 March 2017 17:32
--- NOTE | 2017-03-09 17:48 | HHI.PR ---
Subjective Remarks Follow up for afib, chest pain. The patient is seen s/p cardiac catheterization. He reports feeling well today. Denies any chest pain since yesterday morning which he believes may have been some anxiety. He denies any palpitations, shortness of breath, lightheadedness or dizziness. He understands plan for likely ablation tomorrow. 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 Objective Vitals Vital Signs Date Time Temp Pulse Resp B/P (MAP) Pulse Ox O2 Delivery O2 Flow Rate FiO2 03/09/17 08:28 93 Room Air 03/09/17 04:19 98.4 46 18 112/65 (81) 96 03/09/17 04:00 72 03/09/17 00:00 72 03/08/17 23:33 98.0 54 18 118/67 (84) 95 03/08/17 20:00 78 03/08/17 19:30 98.1 42 18 119/56 (77) 95 I/O 03/08/17 03/08/17 03/08/17 03/09/17 03/09/17 03/09/17 07:00 15:00 23:00 07:00 15:00 23:00 Intake Total 1000 ml Balance 1000 ml Intake IV Total 1000 ml # Voids 3 Result Diagram: 03/08/17 0047 03/08/17 0047 Imaging Last Impressions Chest X-Ray 03/07/17 1241 Signed Impressions: Service Date/Time: Tuesday, March 07, 2017 12:59 - CONCLUSION: No acute disease. Jorge L Gamino MD Carotid Artery Ultrasound 03/07/17 0000 Signed Impressions: Service Date/Time: Tuesday, March 07, 2017 15:39 - CONCLUSION: 1. Moderate severity right proximal internal carotid artery disease with hemodynamic parameters characteristic of 50-70%% stenosis. 2. Normal hemodynamic profile on the left side. Pawan Christopher MD Objective Remarks GENERAL: Well-nourished, well-developed middle aged male patient in [facility]. SKIN: Warm and dry. No rash. HEENT: Normocephalic. Atraumatic.Pupils equal and round. Mucous membranes pink and moist. NECK: Supple. Trachea midline. CARDIOVASCULAR: Irregularly irregular bradycardic rate and rhythm. S1, S2 noted. No murmur appreciated. RESPIRATORY: No accessory muscle use. Clear to auscultation. Breath sounds equal bilaterally. GASTROINTESTINAL: Abdomen soft, non-tender, nondistended. Normoactive bowel sounds x4. MUSCULOSKELETAL: No obvious deformities. Extremities without clubbing, cyanosis , or edema. Bilateral calves nontender. NEUROLOGICAL: Awake and alert. No obvious cranial nerve deficits. Motor grossly within normal limits. Moving all extremities spontaneously. Normal speech. PSYCHIATRIC: Appropriate mood and affect; insight and judgment normal. Medications and IVs Current Medications Medications (Trade) Dose Ordered Sig/Pooja Route Start Time Stop Time Status Last Admin (Plavix) 75 mg DAILY PO 03/08/17 09:00 03/08/17 09:34 (Pradaxa) 150 mg BID PO 03/07/17 21:00 Future Hold 03/08/17 09:34 (Lipitor) 80 mg DAILY PO 03/08/17 09:00 03/08/17 09:35 Sodium Chloride 1,000 ml @ 75 mls/hr [id number] IV 03/07/17 14:23 03/08/17 18:30 (NS Flush) 2 ml UNSCH PRN IV FLUSH 03/07/17 14:30 (NS Flush) 2 ml BID IV FLUSH 03/07/17 21:00 03/08/17 09:36 (Narcan Inj) 0.4 mg UNSCH PRN IV PUSH 03/07/17 14:30 (Milk Of Magnesia Liq) 30 ml Q12H PRN PO 03/07/17 14:30 (Senokot) 17.2 mg Q12H PRN PO 03/07/17 14:30 (Dulcolax Supp) 10 mg DAILY PRN RECTAL 03/07/17 14:30 (Lactulose Liq) 30 ml DAILY PRN PO 03/07/17 14:30 (Lopressor) 25 mg Q12HR PO 03/07/17 21:00 03/08/17 21:19 (Nitrostat Sl) 0.4 mg Q5M PRN SL 03/08/17 08:45 03/08/17 08:41 (Percocet 5-325 Mg) 1 tab Q4H PRN PO 03/09/17 08:30 A/P Assessment and Plan 61-year-old male with past medical history significant for coronary artery disease status post recent cardiac catheterization and stent implant 02/05/17 and atrial fibrillation who presents to [facility] with complaints of syncopal event while standing in line for some water at the [place] [employer] earlier today. Chest pain: with known history of CAD s/p cardiac stent 02/05/17, rule out ACS - EKG personally reviewed shows normal sinus rhythm with occasional PVCs and frequent SVC's - Trended serial cardiac enzymes, negative x4 - Consult patients food and nutrition services supervisor Dr. Venu Garcia, appreciate his assistance - IV morphine and NTG sl prn chest pain - Continuous cardiac monitoring - Supplemental oxygen - Continue patient's home medications including Lipitor, Plavix, Metoprolol and Pradaxa. - heart healthy diet - s/p cardiac catheterization 03/[address] Garcia, mostly unremarkable, continued wide patency of previous LAD stent; no areas requiring revascularization - plan for cardiac ablation tomorrow, Dr. Mathias consulted Atrial fibrillation - rate controlled - Continue patient on home dose of Pradaxa 150mg BID - Continue patient on Metoprolol 25mg BID - Plan for evaluation by Dr. Mathias, possible cardiac ablation tomorrow 03/10 Syncope/near syncopal episode: suspect secondary to afib/arrhythmia - UDS negative - Given IVF hydration - Echocardiogram with normal systolic function, EF 60-65% - Holter monitor - Carotid U/S showed Moderate severity right proximal internal carotid artery disease with hemodynamic parameters characteristic of 50-70% stenosis, see below - Continue his cardiac monitoring - Fall precautions - no further near syncopal events while in the hospital Carotid Stenosis: Carotid U/S with moderate severity right proximal internal carotid artery disease with hemodynamic parameters characteristic of 50-70% stenosis; normal left side -consulted vascular surgery, recommends outpatient f/up in 6 months -continue home meds Tobacco Use: chronic - discussed importance of cessation DVT prophylaxis- patient is on Pradaxa Alissa Carrion PA-C Mar 09, 2017 5:48 pm
--- NOTE | 2017-03-09 22:34 | MB ---
cc: DEEP RIVERA M.D. DATE OF CONSULTATION: 03/09/2017 REASON FOR CONSULTATION: Atrial fibrillation pain, syncopal episode. HISTORY OF PRESENT ILLNESS: Mr. Luciano is a 61-year-old gentleman with history of atrial fibrillation. He had a previous ablation in 2012. He has a previous left heart catheterization with PTCA to LAD, was having on and off episode of atrial fibrillation, admitted due to syncopal episode and palpitation. During hospitalization left heart catheterization was performed. No occlusion found. I was consulted for evaluation for atrial fibrillation ablation. The chart was reviewed. The patient was evaluated. ALLERGIES KETOROLAC SOCIAL HISTORY The patient still smoking half a pack of cigarettes a day. FAMILY HISTORY Noncontributory to his current medical condition. MEDICATIONS AT HOME 1. Plavix. 2. Pradaxa 3. Digoxin 4. Crestor. Pradaxa was stopped during hospitalization. REVIEW OF SYSTEMS: He referred no chest pain, no chest discomfort, no fever. PHYSICAL EXAMINATION: Alert, fully oriented. VITAL SIGNS: Blood pressure 110/68, pulse 72, respiratory rate 18. LUNGS: Ventilated. CARDIOVASCULAR: S1-S2. No gallop, no murmur. ABDOMEN: Soft, no mass, no bruits. EXTREMITIES: No edema. Right immobilized because of arterial access for left heart catheterization. Electrocardiogram indicates sinus rhythm. PAC is a short run of tachyarrhythmia. LABORATORY DATA Hemoglobin is 13.9, white blood cell 7.9, potassium 2.9, creatinine 0.68, troponin less than 0.02. TSH 1.310. INR is 1.1. ASSESSMENT AND RECOMMENDATIONS Mr. Luciano was having on and off episode of atrial fibrillation. He is symptomatic. Electrophysiology study and ablation discussed. The risks, the nature and the benefit of the procedure are clearly stated to him. Risks include pneumothorax, cardiac perforation, stroke and even . The patient understood and agreed to proceed. I will keep him n.p.o. after breakfast. The procedure will be tomorrow afternoon. Deep Rivera MD /[place] /9:34 PM /9:55 PM
[2017-03-10] VITALS (8 sets, daily range): BP systolic 101–118; BP diastolic 54–75; PULSE 43–74; RESP 16–20; TEMP 97.8–98.3; O2SAT 94–96
[2017-03-10 06:44] LABS: AUTOMATED NEUTROPHIL # 4.3 TH/MM3 (1.8-7.7); BASOPHIL % 0.6 % (0.0-2.0); EOSINOPHIL # 0.3 TH/MM3 (0-0.4); EOSINOPHIL % 3.5 % (0.0-4.0); HEMO FLAGS DIFF FINAL; LYMPHOCYTE # 2.6 TH/MM3 (1.0-4.8); MEAN CELL VOLUME 97.6 FL (80.0-100.0); MEAN CORPUSCULAR HEMOGLOBIN 34.6 PG (27.0-34.0); MEAN CORPUSCULAR HGB CONC 35.5 % (32.0-36.0); NEUT % 54.9 % (16.0-70.0); PLATELET COUNT 160 TH/MM3 (150-450); RED CELL DISTRIBUTION WIDTH 13.1 % (11.6-17.2); WHITE BLOOD COUNT 7.8 TH/MM3 (4.0-11.0)
[2017-03-10 07:00] LABS: BICARBONATE 26.7 MEQ/L (21.0-32.0); POTASSIUM 4.1 MEQ/L (3.5-5.1)
[2017-03-10] MEDS: ATORVASTATIN 80 MG TAB PO SCH (08:39)
[2017-03-10] MEDS: CLOPIDOGREL 75 MG TAB PO SCH (08:39)
[2017-03-10] MEDS: METOPROLOL TARTRATE 25 MG TAB PO SCH (08:39)
[2017-03-10] MEDS: SODIUM CHLORIDE 0.9% FLUSH 10 ML FLUSH IV FLUSH SCH (08:40)
--- NOTE | 2017-03-10 09:02 | HHI.PR ---
Subjective Remarks in no acute distress. denies chest pain, sob or dizziness today. awaiting ablation. Objective Vitals Vital Signs Date Time Temp Pulse Resp B/P (MAP) Pulse Ox O2 Delivery O2 Flow Rate FiO2 03/10/17 04:00 70 03/10/17 04:00 98.2 70 16 101/62 (75) 94 03/10/17 02:00 58 03/10/17 00:00 98.1 56 16 112/75 (87) 95 03/10/17 00:00 56 03/09/17 22:00 68 03/09/17 20:00 98.0 54 18 118/65 (82) 93 03/09/17 20:00 86 03/09/17 16:00 72 110/68 (82) 03/09/17 15:00 68 100/64 (76) 03/09/17 14:30 70 122/68 (86) 03/09/17 14:00 98.0 62 120/62 (81) I/O 03/09/17 03/09/17 03/09/17 03/10/17 03/10/17 03/10/17 07:00 15:00 23:00 07:00 15:00 23:00 Intake Total 240 ml Balance 240 ml Intake Oral 240 ml # Voids 2 # Bowel Movements 0 Result Diagram: 03/10/17 0527 03/10/17 0527 Imaging Last Impressions Chest X-Ray 03/07/17 1241 Signed Impressions: Service Date/Time: Tuesday, March 07, 2017 12:59 - CONCLUSION: No acute disease. Jorge L Gamino MD Carotid Artery Ultrasound 03/07/17 0000 Signed Impressions: Service Date/Time: Tuesday, March 07, 2017 15:39 - CONCLUSION: 1. Moderate severity right proximal internal carotid artery disease with hemodynamic parameters characteristic of 50-70%% stenosis. 2. Normal hemodynamic profile on the left side. Pawan Christopher MD Objective Remarks GENERAL: This is a well-nourished, well-developed patient, in no apparent distress. CARDIOVASCULAR: irregular rhythm without murmurs, gallops, or rubs. RESPIRATORY: Clear to auscultation. Breath sounds equal bilaterally. No wheezes , rales, or rhonchi. GASTROINTESTINAL: Abdomen soft, non-tender, nondistended. Normal, active bowel sounds MUSCULOSKELETAL: Extremities without clubbing, cyanosis, or edema. NEURO: Alert & Oriented x4 to person, place, time, situation. Moves all ext x4 Medications and IVs Current Medications Sodium Chloride (NS Flush) 2 ml UNSCH PRN IVF FLUSH AFTER USING IV ACCESS; Start 03/07/17 at 12:45; Stop 03/09/17 at 08:38; Status DC Sodium Chloride 1,000 ml @ 1,000 mls/hr Q1H ONCE IV Last administered on 03/07 12:41; Start 03/07/17 at 12:41; Stop 03/07/17 at 13:40; Status DC Morphine Sulfate (Morphine Inj) 4 mg ONCE ONCE IV PUSH Last administered on 13:30; Start 03/07/17 at 13:30; Stop 03/07/17 at 13:32; Status DC Nitroglycerin (Nitrostat Sl) 0.4 mg Q5M SL ; Start 03/07/17 at 13:30; Stop at 13:41; Status DC Clopidogrel Bisulfate (Plavix) 75 mg DAILY PO Last administered on 03/10/17 08:39; Start 03/08/17 at 09:00 Dabigatran (Pradaxa) 150 mg BID PO Last administered on 03/08/17 09:34; Start 03/07/17 at 21:00; Status Future Hold Atorvastatin Calcium (Lipitor) 80 mg DAILY PO Last administered on 03/10/17 08:39; Start 03/08/17 at 09:00 Sodium Chloride 1,000 ml @ 75 mls/hr [id number] IV Last administered on 18:30; Start 03/07/17 at 14:23 Sodium Chloride (NS Flush) 2 ml UNSCH PRN IV FLUSH FLUSH AFTER USING IV ACCESS ; Start 03/07/17 at 14:30 Sodium Chloride (NS Flush) 2 ml BID IV FLUSH Last administered on 03/10/17 08 :40; Start 03/07/17 at 21:00 Naloxone HCl (Narcan Inj) 0.4 mg UNSCH PRN IV PUSH SEE LABEL COMMENTS; Start 03/07/17 at 14:30 Magnesium Hydroxide (Milk Of Magnesia Liq) 30 ml Q12H PRN PO Mild constipation ; Start 03/07/17 at 14:30 Sennosides (Senokot) 17.2 mg Q12H PRN PO Moderate constipation; Start at 14:30 Bisacodyl (Dulcolax Supp) 10 mg DAILY PRN RECTAL SEVERE CONSITIPATION; Start 03/07/17 at 14:30 Lactulose (Lactulose Liq) 30 ml DAILY PRN PO SEVERE CONSITIPATION; Start 03/07 at 14:30 Metoprolol Tartrate (Lopressor) 25 mg Q12HR PO Last administered on 03/09/17 21:09; Start 03/07/17 at 21:00 Nitroglycerin (Nitrostat Sl) 0.4 mg Q5M PRN SL CHEST PAIN Last administered on 03/08/17 08:41; Start 03/08/17 at 08:45 Heparin Sodium/ Sodium Chloride 500 ml @ As Directed STK-MED ONCE .ROUTE Last administered on 03/09/17 07:10; Start 03/09/17 at 07:10; Stop 03/09/17 at 07 :11; Status DC Midazolam HCl (Versed Inj) 2 mg STK-MED ONCE .ROUTE Last administered on 07:39; Start 03/09/17 at 07:10; Stop 03/09/17 at 07:11; Status DC Heparin Sodium (Porcine) (Heparin Inj) 10,000 units STK-MED ONCE .ROUTE Last administered on 03/09/17 07:44; Start 03/09/17 at 07:11; Stop 03/09/17 at 07 :12; Status DC Nitroglycerin 5 ml @ As Directed STK-MED ONCE .ROUTE Last administered on 03/09 07:44; Start 03/09/17 at 07:11; Stop 03/09/17 at 07:12; Status DC Verapamil HCl (Isoptin Inj) 5 mg STK-MED ONCE .ROUTE Last administered on 03/09 07:44; Start 03/09/17 at 07:24; Stop 03/09/17 at 07:25; Status DC Fentanyl Citrate (fentaNYL INJ) 100 mcg STK-MED ONCE .ROUTE Last administered on 03/09/17 07:41; Start 03/09/17 at 07:40; Stop 03/09/17 at 07:41; Status DC Midazolam HCl (Versed Inj) 2 mg STK-MED ONCE .ROUTE Last administered on t 07:43; Start 03/09/17 at 07:42; Stop 03/09/17 at 07:43; Status DC Midazolam HCl (Versed Inj) 2 mg STK-MED ONCE .ROUTE ; Start 03/09/17 at 07:54; Stop 03/09/17 at 07:55; Status DC Oxycodone/ Acetaminophen (Percocet 5-325 Mg) 1 tab Q4H PRN PO PAIN SCALE 1 TO 10; Start 03/09/17 at 08:30 Enoxaparin Sodium (Lovenox Inj) 90 mg ONCE ONCE SQ ; Start 03/09/17 at 09:00; Stop 03/09/17 at 09:01; Status DC Iohexol (OMNIPAQUE 350 INJ (Knowledge Manager)) 50 ml STK-MED ONCE OTHER ; Start at 15:28; Stop 03/09/17 at 15:29; Status DC A/P Assessment and Plan A/P Chest pain: with known history of CAD s/p cardiac stent 02/05/17 - Trended serial cardiac enzymes, negative x4 - Consult 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 Venu Garcia, appreciate his assistance - Continuous cardiac monitoring - Supplemental oxygen - Continue patient's home medications including Lipitor, Plavix, Metoprolol and Pradaxa. - heart healthy diet - s/p cardiac catheterization 03/[address] Garcia, mostly unremarkable, continued wide patency of previous LAD stent; no areas requiring revascularization - plan for cardiac ablation today, Dr. Mathias consulted Atrial fibrillation - rate controlled - Continue patient on home dose of Pradaxa 150mg BID - Continue patient on Metoprolol 25mg BID - Plan for cardiac ablation today Syncope/near syncopal episode: suspect secondary to afib/arrhythmia - UDS negative - Given IVF hydration - Echocardiogram with normal systolic function, EF 60-65% - Holter monitor - Carotid U/S showed Moderate severity right proximal internal carotid artery disease with hemodynamic parameters characteristic of 50-70% stenosis, see below - Continue his cardiac monitoring - Fall precautions - no further near syncopal events while in the hospital Carotid Stenosis: Carotid U/S with moderate severity right proximal internal carotid artery disease with hemodynamic parameters characteristic of 50-70% stenosis; normal left side -consulted vascular surgery, recommends outpatient f/up in 6 months -continue home meds Tobacco Use: chronic - discussed importance of cessation DVT prophylaxis- patient is on Pradaxa Discharge Planning dc home when cleared by cardiology. awaiting cardiac ablation later today. Mason Venegas MD Mar 10, 2017 09:02
[2017-03-10] MEDS ORDERED: ISOPROTERENOL HCL 1 MG/5 ML AMP ONE (19:04)
[2017-03-10] MEDS ORDERED: HEPARIN-D5W 25,000 U/250 ML 250 ML ONE (19:04)
[2017-03-10] MEDS ORDERED: PROTAMINE SULFATE 50 MG/5 ML VIAL ONE ×2 (19:04→21:52)
[2017-03-10] MEDS ORDERED: HEPARIN SODIUM - IV 10,000 UNITS/10 ML VIAL ONE (19:05)
[2017-03-10] MEDS ORDERED: LEVOFLOXACIN 500 MG PREMIX INJ 100 ML IV ONE (19:24)
[2017-03-10] MEDS ORDERED: HEPARIN-NS/PF INJ 2,000 ML ONE (19:24)
[2017-03-10] MEDS ORDERED: FUROSEMIDE 40 MG/4 ML VIAL ONE ×2 (21:42→21:43)
[2017-03-10] MEDS ORDERED: ONDANSETRON HCL 4 MG/2 ML VIAL IV PUSH PRN (21:45)
[2017-03-10] MEDS ORDERED: SODIUM CHLOR 0.9% 250 ML INJ 250 ML IV PRN (21:45)
[2017-03-10] MEDS ORDERED: LIDOCAINE HCL 1% 50 ML VIAL INFIL PRN (21:45)
[2017-03-10] MEDS ORDERED: oxyCODONE/ACETAMINOPHEN 5 MG/325 MG TAB PO PRN ×2 (21:45)
[2017-03-10] MEDS ORDERED: ATROPINE SULFATE 1 MG/ML VIAL IV PUSH PRN (21:45)
[2017-03-10] MEDS ORDERED: LORazepam 2 MG/ML VIAL IV PUSH PRN (21:45)
[2017-03-10] MEDS ORDERED: BACITRACIN OINT 0.9 GM PKT TOP ONE (21:45)
--- NOTE | 2017-03-10 22:39 | CATHPROC ---
[employer] HIS Report Study Information Study Number Admission Scheduled Start Study Start [id number] Mar 07 2017 6:10PM 03/10/2017 Mar 10 2017 7:20PM [facility] Service Electrophysiology Study Admit Source Facility Department Other [facility] - Consumer Loan Specialist Physician and Clinical Staff Initial Libia Geol Lead Teacher Jeannette Santa [facility]IS Other Anesthesia, FIRE CHIEF DEPUTY Recorder Trinh Wilkerson,RN Scrub Renny Owens,RT(R) Procedures Performed Procedure Location (Site) Vessel Name Ablation Procedure ICE CATHETER INSERT RA Atruim RF Ablation LT. ATRIUM LT. ATRIUM Equipment Time Knitter Helper Description Size Mfg Part Number Used/Scraped NEEDLE, TRANSSEPTAL NRG 98 19:23 [facility] [id number] Used C1 [employer]/ EP 19:23 KIT, TRANSDUCER / AFIB [id number] Used PACER [id number] CATHETER, TACTICATH ABLAT BUNDLE 19:23 BUNDLE-[facility]. MARIA R Used 65 BUNDLE *[id number] BUNDLE [id number] CATHETER, FR7 OPTIMA SPIRAL 19:23 BUNDLE-ST. MARIA R FR7 *[id number]- Used BUNDLE BUNDLE [id number] 19:23 BUNDLE-[employer]. MARIA R CATHETER, JSN, QUAD BUNDLE FR 5 *[id number]- Used BUNDLE [id number] 19:23 BUNDLE-[employer]. MARIA R CATHETER, JSN, QUAD BUNDLE FR 5 *[id number]- Used BUNDLE [id number] SET, COOL POINT TUBING 19:23 BUNDLE-ST. MARIA R *[id number]- Used BUNDLE BUNDLE SHEATH, FR8.5 STEERABLE SM 19:23 BUNDLE-ST. MARIA R 71CM [id number] Used 71CM BUNDLE COVER, TRANSDUCER CABLE 19:23 CONE [employer]ink[employer] [id number] Used ACUNAV 19:23 CORDIS/PACER SHEATH, FR10 YADIEL 11CM FR 10 [id number] Used 19:23 CORDIS/PACER SHEATH, FR9 YADIEL 11CM FR 9 [id number] Used [id number] 19:23 [employer]ES PACK, CCL CUSTOM * Used *[id number] 19:23 [employer] PACER LYNN, LIMB * 2090 *[id number] Used [id number] 19:23 [employer] MEDICAL SHEATH, FR4.5 PRELUDE 11CM FR 4.5 Used [id number] 19:23 NAMIC TUBING, HIGH PRESSURE 48" 48" Used *[id number] 19:23 NAMIC TUBING, HIGH PRESSURE 48" 48" Used *[id number] 19:23 PRAJAPATI MEDICAL BLANKET,WARM AIR CCL * Used *[id number] 19:23 [facility] R MEDICAL ELECTRODE KIT, GERONIMO X SURFACE * Used *[id number] 19:23 [facility] R MEDICAL SHEATH, EPS, FR6 FAST CATH FR 6 Used *[id number] 19:23 [facility]. MARIA R MEDICAL SHEATH, EPS, FR7 FAST CATH FR 7 [id number] Used [id number] 19:23 [facility] R MEDICAL SHEATH, EPS, FR8 FAST CATH FR 8 Used *[id number] CATHETER, ACUNAV FR10 ICE [id number] 20:25 TOMMY FR 10 Used (TOMMY) *[id number] [facility] PAD, ELECTROSURGICAL 19:23 * [id number] *[id number] Used SURGICAL GROUNDING (BLUE) History: Allergies Allergy Reaction ketorolac History: Risk Factors Dyslipidemia Yes Prior PCI Yes Labs Hgb (g/dl) Hct (%) RBC (MIL/MM3) WBC (l/cumm) Platelets (thousands) 11.60-17.00 35.00-51.00 4.00-5.90 4.00-11.00 150.00-450.00 15.0 43 4.4 7.8 160 Glucose (mg/dl) BUN (mg/dl) Creatinine (mg/dl) BUN:Creatinine (1:x) 74.00-106.00 7.00-18.00 0.50-1.30 10.00-20.00 88 11 0.8 13.8 Na (meq/l) K (meq/l) 136.00-145.00 3.50-5.10 142 4.1 INR (PTT:PT) 0.90-1.10 1.1 Medication Medication Total Dose (Bolus/Oral) Medication Total Dosage/Unit 1% XYLOCAINE 40 mL HEPARIN 28638 units LASIX 40 mg PROTAMINE 60 mg Medications (Bolus/Oral) Medication Time Given Dosage/Unit Administered By Reason 1% XYLOCAINE 03/10/2017 8:16:51 PM 20 mL Libia Mathias 20 mL 1% XYLOCAINE given in lab by Libia Mathias in Left Groin via Subcutaneous. 1% XYLOCAINE 03/10/2017 8:21:20 PM 20 mL Libia Mathias 20 mL 1% XYLOCAINE given in lab by Libia Mathias in Right Groin via Subcutaneous. HEPARIN 03/10/2017 8:29:40 PM 70153 units Anesthesia, FIRE CHIEF DEPUTY As per physicians v erbal order 60469 units HEPARIN given in lab by Anesthesia, FIRE CHIEF DEPUTY via Peripheral IV. Ordered by Libia Mathias. Solon son: As per physicians verbal order. HEPARIN 03/10/2017 8:43:43 PM 4000 units Anesthesia, FIRE CHIEF DEPUTY 4000 units HEPARIN given in lab by Anesthesia, FIRE CHIEF DEPUTY in Left Antecubital via Peripheral IV. Ordered by Libia Mathias. HEPARIN 03/10/2017 9:00:19 PM 3000 units Anesthesia, FIRE CHIEF DEPUTY As per physicians v erbal order 3000 units HEPARIN given in lab by Anesthesia, FIRE CHIEF DEPUTY via Peripheral IV. Ordered by Libia Mathias. Reas on: As per physicians verbal order. LASIX 03/10/2017 9:40:44 PM 40 mg Anesthesia, FIRE CHIEF DEPUTY As per physicians verba l order 40 mg LASIX given in lab by Anesthesia, FIRE CHIEF DEPUTY via Peripheral IV. Ordered by Libia Mathias. Reason: As per physicians verbal order. PROTAMINE 03/10/2017 9:42:30 PM 40 mg Anesthesia, FIRE CHIEF DEPUTY As per physicians petrona bal order 40 mg PROTAMINE given in lab by Anesthesia, FIRE CHIEF DEPUTY via Peripheral IV. Ordered by Libia Mtahias. Reason: As per physicians verbal order. PROTAMINE 03/10/2017 9:54:19 PM 20 mg Anesthesia, FIRE CHIEF DEPUTY As per physicians petrona bal order 20 mg PROTAMINE given in lab by Anesthesia, FIRE CHIEF DEPUTY via Peripheral IV. Ordered by Libia Mathias. Reason: As per physicians verbal order. Medication (Drip) Medication Time Given Dosage/Unit Concentration/Unit Diluent (ml) Solution HEPARIN DRIP 03/10/2017 8:44:07 PM 1000 units/hr 63368 units 250 D5W 1000 units/hr HEPARIN DRIP given in lab by Anesthesia, FIRE CHIEF DEPUTY via Peripheral IV. Pump/Drip Flow = 10 ml /hr using [place] [address] units in 250 ml. Ordered by Libia Mathias. ISUPREL 03/10/2017 9:26:12 PM 20 mcg/min 1 mg 250 NaCl .9 20 mcg/min ISUPREL given in lab by Anesthesia, FIRE CHIEF DEPUTY via Peripheral IV. Pump/Drip Flow = 300 ml/hr usi ng NaCl .9 with a concentration of 1 mg in 250 ml. Ordered by Libia Mathias. Reason: As per physicians verbal order. Initial Case Assessment Cardiovascular HR Rhythm NIBP Chest Pain 61 af 145/84 0 Edema Present Skin color Skin None Normal Warm Dry Circulatory - Right Pulses Dorsalis Pedis 1 Scale (0,1,2,3,4,d) Circulatory - Left Pulses Dorsalis Pedis 1 Scale (0,1,2,3,4,d) Circulatory - Lower Extremities Color Lower Right Color Lower Left Normal Normal Neurological State Oriented to time-place- Alert Moves all extremities person Respiration - General Respiration Rate SpO2 (%) (B/min) 20 96 Final Case Assessment Cardiovascular HR Rhythm NIBP Chest Pain 88 sr 106/64 0 Edema Present Skin color Skin None Normal Warm Dry Circulatory - Right Pulses Dorsalis Pedis 1 Scale (0,1,2,3,4,d) Circulatory - Left Pulses Dorsalis Pedis 1 Scale (0,1,2,3,4,d) Circulatory - Lower Extremities Color Lower Right Color Lower Left Normal Normal Neurological State Lethargic Moves all extremities Respiration - General Respiration Rate SpO2 (%) (B/min) 12 100 Chronological Log Time Study Chronological Log 19:40:02 Patient arrived via Bed. 19:40:13 Consent signed by the physician and the patient and verified by the Consumer Loan Specialist staff. 19:40:15 Pre-op and post- op instructions given; patient acknowledges understanding of instructions. 19:40:18 Verbal Stimulation=2 Physical Stimulation=2 Airway=2 Respiration=2 TOTAL=8. (0=absent, 1=li mited, 2=present) 19:40:30 Anesthesia at bedside. Assumes care of patient.(Roseline/leather fitter) 19:41:38 Patient has been NPO for More than 6Hrs. 19:41:41 Skin Breakdown- left forearm bandaid, left knee wound 19:42:47 Patient Warmer Placed on the Table. 19:42:50 Disposable Defibrillator Pads Placed On Patient. 19:42:56 Mya Prominences Protected 19:43:00 A # 20 IV was noted in the Forearm (left). Grade = 0 19:43:05 A # 20 IV was noted in the Wrist (right). Grade = 0 19:44:18 History and physical on the chart or being dictated. 19:45:09 Patient Name, D.O.B, / Armband Verified By R.N. 19:50:20 Anesthesiologist present for intubation. 14 fr louis inserted w/o difficutly. Clear yellow urine obtained. 20:05:36 MD paged Assessment: Initial Case, HR=61 BPM, Rhythm=af, JLOA=893/84 mmhg, Chest Pain=0, Edema=None, Col or=Normal, Skin = Warm, Dry Right Pulses: Brad Ped=1 Left Pulses: Brad Ped=1 20:08:08 Lower Right Extremities: Color=Normal Lower Left Extremities: Color=Normal Neurological: State=Alert, Ox3, W[place]ACE Respiration: Resp=20 B/min, SpO2=96 % 20:09:16 Table restraints applied according to hospital policy 20:09:41 MD arrived. Time Out. Correct patient, procedure, procedure equipment, site and side verified with physicia n present. Time 20:12:06 concurred by MD, individual staff and FIRE CHIEF DEPUTY. Time Out #2 - Consents verified, patient in correct position, all results are labled and displa yed, safety precautions 20:12:32 taken, antibiotics administered. Time out concurred by MD, individual staff and FIRE CHIEF DEPUTY in procedu re 20:12:57 Case Start 20:13:03 Fer in progress 20:16:00 Fer complete. 20:16:51 20 mL 1% XYLOCAINE given in lab by Libia Mathias in Left Groin via Subcutaneous. 20:17:01 Vascular access was obtained in the Fem Vein (left). 20:17:04 Vascular access was obtained in the Fem Vein (left). 20:17:07 Vascular access was obtained in the Fem Vein (left). 20:17:23 Vascular access was obtained in the Fem Art (left). A SHEATH, FR4.5 PRELUDE 11CM FR 4.5 was advanced into the Fem Art (left) using the Modified Holly jake technique. 20:17:34 0.9ns pressure bag connected. 20:17:57 A SHEATH, EPS, FR6 FAST CATH FR 6 was advanced into the Fem Vein (left) using the Modified Seldinger technique. 20:18:07 A SHEATH, EPS, FR7 FAST CATH FR 7 was advanced into the Fem Vein (left) using the Modified Seldinger technique. 20:18:10 A SHEATH, FR10 YADIEL 11CM FR 10 was advanced into the Fem Vein (left) using the Modified S eldinger technique. 20:21:20 20 mL 1% XYLOCAINE given in lab by Libia Mathias in Right Groin via Subcutaneous. 20:22:00 Vascular access was obtained in the Fem Vein (right). 20:22:03 A SHEATH, EPS, FR8 FAST CATH FR 8 was advanced into the Fem Vein (right) using the Modified Seldinger technique. A CATHETER, JSN, QUAD BUNDLE FR 5 was advanced vis Fem Vein (left) and placed in the CS. Placem ent was visually 20:24:37 confirmed under fluoroscopy. A CATHETER, JSN, QUAD BUNDLE FR 5 was advanced vis Fem Vein (left) and placed in the HIS. Place ment was 20:24:52 visually confirmed under fluoroscopy. 20:25:10 CATHETER, ACUNAV FR10 ICE ([employer]) FR 10 Was Postioned. A SHEATH, FR8.5 STEERABLE SM 71CM BUNDLE 71CM was exchanged in the Fem Vein (right). This was n ecessary in 20:25:30 order for catheter support. 20:25:45 [place] [address] units HEPARIN given in lab by Anesthesia, FIRE CHIEF DEPUTY via Peripheral IV. Ordered by Mimi Mathias Reason: As per 20:29:40 physicians verbal order. 20:31:22 A eps was advanced to the right atrium and passed through the septal wall to the left atriu m. 20:31:29 [place] out A CATHETER, FR7 OPTIMA SPIRAL BUNDLE FR7 was advanced vis Fem Vein (right) and placed in the LA . Placement 20:31:55 was visually confirmed under fluoroscopy. Mapping in progress. 20:35:56 Catheter was removed(optima) A CATHETER, TACTICATH ABLAT 65 BUNDLE was advanced vis Fem Vein (right) and placed in the LA. P lacement was 20:37:15 visually confirmed under fluoroscopy. 20:42:33 ACT (Normal Range 90-180) = 282 20:43:43 4000 units HEPARIN given in lab by Anesthesia, FIRE CHIEF DEPUTY in Left Antecubital via Peripheral IV. Ordered by Libia Mathias. 1000 units/hr HEPARIN DRIP given in lab by Anesthesia, FIRE CHIEF DEPUTY via Peripheral IV. Pump/Drip Flow = 10 ml/hr using 20:44:07 [place] [address] units in 250 ml. Ordered by Libia Mathias. 20:49:13 RF Ablation of the LT. ATRIUM with a CATHETER, TACTICATH ABLAT 65 BUNDLE. including the pu lmonary veins 20:51:25 Activated Clotting Time Drawn 20:56:57 continuing ablation 21:00:05 ACT (Normal Range 90-180) = 318 3000 units HEPARIN given in lab by Anesthesia, FIRE CHIEF DEPUTY via Peripheral IV. Ordered by Libia Mathias . Reason: As per 21:00:19 physicians verbal order. 21:07:40 Activated Clotting Time Drawn 21:13:49 ACT (Normal Range 90-180) = 365 21:16:35 continuing ablation 21:22:20 Catheter was removed(ablation) A CATHETER, FR7 OPTIMA SPIRAL BUNDLE FR7 was advanced vis Fem Vein (right) and placed in the LA . Placement 21:22:35 was visually confirmed under fluoroscopy. 20 mcg/min ISUPREL given in lab by Anesthesia, FIRE CHIEF DEPUTY via Peripheral IV. Pump/Drip Flow = 300 ml/ hr using NaCl .9 21:26:12 with a concentration of 1 mg in 250 ml. Ordered by Libia Mathias. Reason: As per physicians petrona bal order. 21:36:33 Isuprel off. 21:36:45 Ablation procedure performed: AFIB. 21:36:53 EP Procedure was performed. 21:38:32 PACU called. Spoke to Renetta 21:38:44 Bedside Report will be given. 21:38:50 Catheter(s) removed without difficulty A SHEATH, FR9 YADIEL 11CM FR 9 was exchanged in the Fem Vein (right). This was necessary in ord er to minimize 21:39:09 site leakage. 21:40:06 Heparin off. 40 mg LASIX given in lab by Anesthesia, FIRE CHIEF DEPUTY via Peripheral IV. Ordered by Libia Mathias. Reaso n: As per physicians :40:44 verbal order. 40 mg PROTAMINE given in lab by Anesthesia, FIRE CHIEF DEPUTY via Peripheral IV. Ordered by Libia Mathias. R benito: As per 21:42:30 physicians verbal order. 21:44:51 Defibrillator and ground pads removed. Skin intact. 21:47:40 Activated Clotting Time Drawn 21:51:00 ACT (Normal Range 90-180) = 221 20 mg PROTAMINE given in lab by Anesthesia, FIRE CHIEF DEPUTY via Peripheral IV. Ordered by Hanscy. Chi Mathias: As per 21:54:19 physicians verbal order. 21:59:30 Activated Clotting Time Drawn 22:00:00 ACT (Normal Range 90-180) = 121 22:01:04 Right groin sheath removed; pressure applied to access site by DB. 22:01:20 Left fem art sheath removed; pressure applied to access site by DC. 22:11:37 Left fem venous sheaths removed; pressure applied to access sites by DC. 22:23:09 Sterile dressing applied to right groin site Assessment: Final Case, HR=88 BPM, Rhythm=sr, QSKN=101/64 mmhg, Chest Pain=0, Edema=None, Cullen r=Normal, Skin = Warm, Dry Right Pulses: Brad Ped=1 Left Pulses: Brad Ped=1 22:29:36 Lower Right Extremities: Color=Normal Lower Left Extremities: Color=Normal Neurological: State=Lethargic, W[place]ACE Respiration: Resp=12 B/min, KxF6=108 % 22:30:40 Case End 22:35:25 Sterile dressing applied to left groin site. Groins wnl. No hematoma, no oozing. 22:38:41 [facility] - Contrast Media Used In Study Contrast Total Opened (mL) Total Used (mL) Total Wasted (mL) Unspecified 0 0 0 End Study - Maximum Contrast Load Max Contrast Load (mL) 613.1 End Study - Radiation Exposure Fluoro Time (minutes) 1.8 End Study - Patient Disposition Complications Transferred To Interventional Outcome No Telemetry Bed successful
[2017-03-10] MEDS ORDERED: DO NOT ADM ANY ANTICOAGULANT DRUGS PRN (22:45)
[2017-03-11] VITALS (10 sets, daily range): BP systolic 115–122; BP diastolic 73–76; PULSE 62–78; RESP 14–16; TEMP 97.8–98.5; O2SAT 94–96
[2017-03-11] MEDS: SODIUM CHLORIDE 0.9% FLUSH 10 ML FLUSH IV FLUSH SCH ×2 (00:41→09:46)
[2017-03-11] MEDS: METOPROLOL TARTRATE 25 MG TAB PO SCH ×2 (00:41→09:46)
--- NOTE | 2017-03-11 04:53 | EKG ---
Date Performed: 03/10/2017 Time Performed: 22:54:51 PTAGE: 61 years EKG: Sinus rhythm NONSPECIFIC T-WAVE ABNORMALITY BORDERLINE ECG Compared to prior electrocardiogram, BURNS and PVCs no l onger present. PREVIOUS TRACING : 03/08/2017 07.39 DOCTOR: Noam Jolly Interpretating Date/Time 03/11/2017 04:51:11
[2017-03-11 07:00] LABS: APTT (PATIENT) 25.7 SEC (24.3-30.1); PROTHROMBIN TIME - PATIENT 11.6 SEC (9.8-11.6)
--- NOTE | 2017-03-11 08:27 | PD.CARD ---
Atrial Fibrillation Ablation PROCEDURE DATE: Mar 10, 2017 PROCEDURES PERFORMED: 1. Electrophysiology study on Isuprel infusion 2. CS cannulation 3. 3-D mapping 4. Transseptal approach 5. Right and left heart catheterization 6. Intracardiac echo 7. Radiofrequency ablation of atrial fibrillation 8. Pulmonary vein isolation 9. Posterior wall ablation 10. Mitral line creation 11. Anterior and posterior ablation INDICATIONS FOR THE PROCEDURE Mr. Luciano is a 61-year-old male with atrial fibrillation, very symptomatic, on anticoagulation, referred for electrophysiology study and ablation. The risks, the nature and the benefits of the procedure were clearly stated to him. The risks include pneumothorax, cardiac perforation, stroke, need for open heart surgery and even . The patient understood and agreed to proceed. DESCRIPTION OF THE PROCEDURE IN DETAIL As written informed consent was obtained prior to esophageal echocardiogram, the patient was kept on the table where he was prepped and draped in the usual sterile fashion. Conscious sedation was initiated and maintained throughout the procedure by the anesthesiologist. Once sedation was verified, the right and left inguinal areas were anesthetized with 2% Xylocaine. Using modified Seldinger technique, the left femoral vein was cannulated on three occasions, three guidewires were advanced. Over the wire a 6, 7 and a 10-Bhutanese Hemaquet were advanced. Then the left femoral artery was cannulated on one occasion, one guidewire was advanced. Over the wire a 4-Bhutanese Hemaquet was advanced. Then the right femoral vein was cannulated on one occasion, one guidewire was advanced. Over the wire a 8-Bhutanese Hemaquet was advanced. Then under fluoroscopic guidance through the 6 and 7-Bhutanese Hemaquet, two 5-Bhutanese Iker curved quadripolar electrophysiology catheters were advanced and placed around the His as well as coronary sinus. Basic interval was measured. The patient was in sinus rhythm. Through the 10-Bhutanese Hemaquet, a Cordis Banda AcuNav intracardiac echo catheter was advanced and placed at the right atrium. Multiple view was obtained. There was no pericardial effusion, pulmonary vein was seen, atrial septal was visualized. Then the 8-Bhutanese Hemaquet in the right femoral vein was exchanged for Agilis transseptal sheath that was placed all the way to the superior vena cava. Through the sheath a Tereso needle was advanced, then the sheath, the dilator and the needle were progressed until foci engaged. Once engaged, the needle was advanced. RF was delivered for 2 seconds. I was able to cross into the left atrium. Once the needle crossed, the dilator was advanced. Once the dilator crossed, the sheath was advanced. Once the sheath crossed, the dilator and the needle were removed. At this point I did flush the system and fluid movement was seen in the left atrium the indicates the sheath is in good position. The patient already received 10,000 units of heparin. The goal is to keep an ACT around 350 during ablation. Then through the sheath a St. Mehran 20 pulse circumferential catheter was advanced. Using Honestly Now endocardial solution mapping system, a two-dimensional configuration of the left atrium was obtained. Points were taken at the left superior and inferior veins, right superior and inferior veins, mitral valve, and appendages. Then through the sheath a St. Mehran TactiCath 65cm 3.5mm irrigated tipped mapping and radiofrequency ablation catheter was advanced. Esophageal probe was placed temperature monitoring during ablation. When it increased to 0.5 degrees Celsius above baseline, I moved to a different area of the atrium. First I did isolate the left superior and inferior vein. I did make a big redding around the veins. Posterior was ablated. Then a mitral line was created. Then the right superior and inferior veins were isolated. I did remap the atrium. There was no signal into the vein, pacing from the vein showed no conduction to the atrium. Isuprel infusion was initiated at 20 mcg for over 10 minutes. No tachyarrhythmia was induced, post Isuprel no tachyarrhythmia was induced. At that point the procedure was complete. All catheters were removed , atrial septal sheath was exchanged for 9-Bhutanese Hemaquet, intracardiac echo showed no pericardial effusion. There is still good flow in the pulmonary vein. The patient is going to be transferred to the recovery room. No incident report. The patient tolerated the procedure. Blood loss was minimal. FINDINGS 1. Electrocardiogram: At baseline the patient was in sinus rhythm. Post procedure electrocardiogram was unchanged. 2. Basic interval: Base cycle length was around 840. AH at 90 and HV at 46 milliseconds. 3. Tachyarrhythmia: Atrial fibrillation was mapped and ablated. The ablation was successful. CONCLUSION Successful electrophysiology study, mapping, radiofrequency ablation of atrial fibrillation, pulmonary vein isolation, posterior ablation, mitral line creation. COMMENTS AND RECOMMENDATIONS The patient is going to be transferred to the telemetry unit. Will be observed and when stable can be discharged home. Libia Mathias MD Mar 11, 2017 08:27
--- NOTE | 2017-03-11 08:46 | PD.CARD.PN ---
Subjective Subjective Remarks Feels okay. Objective Medications Current Medications Medications (Trade) Dose Ordered Sig/Pooja Route Start Time Stop Time Status Last Admin (Plavix) 75 mg DAILY PO 03/08/17 09:00 03/10/17 08:39 (Pradaxa) 150 mg BID PO 03/07/17 21:00 Future hold 03/08/17 09:34 (Lipitor) 80 mg DAILY PO 03/08/17 09:00 03/10/17 08:39 Sodium Chloride 1,000 ml @ 75 mls/hr [id number] IV 03/07/17 14:23 03/08/17 18:30 (NS Flush) 2 ml UNSCH PRN IV FLUSH 03/07/17 14:30 (NS Flush) 2 ml BID IV FLUSH 03/07/17 21:00 03/11/17 00:41 (Narcan Inj) 0.4 mg UNSCH PRN IV PUSH 03/07/17 14:30 (Milk Of Magnesia Liq) 30 ml Q12H PRN PO 03/07/17 14:30 (Senokot) 17.2 mg Q12H PRN PO 03/07/17 14:30 (Dulcolax Supp) 10 mg DAILY PRN RECTAL 03/07/17 14:30 (Lactulose Liq) 30 ml DAILY PRN PO 03/07/17 14:30 (Lopressor) 25 mg Q12HR PO 03/07/17 21:00 03/11/17 00:41 (Nitrostat Sl) 0.4 mg Q5M PRN SL 03/08/17 08:45 03/08/17 08:41 (Percocet 5-325 Mg) 1 tab Q4H PRN PO 03/10/17 21:45 (Percocet 5-325 Mg) 2 tab Q4H PRN PO 03/10/17 21:45 (Ativan Inj) 0.5 mg UNSCH PRN IV PUSH 03/10/17 21:45 03/11/17 21:44 (Atropine Inj) 0.5 mg UNSCH PRN IV PUSH 03/10/17 21:45 Sodium Chloride 250 ml @ 500 mls/hr ONCE PRN IV 03/10/17 21:45 03/11/17 21:44 (Zofran Inj) 4 mg Q4H PRN IV PUSH 03/10/17 21:45 (Xylocaine 1% Inj (50 ml)) 10 ml UNSCH PRN INFIL 03/10/17 21:45 03/11/17 21:44 Miscellaneous Information ALL NURSING DEPARTME... UNSCH PRN .XX 03/10/17 22:45 03/11/17 22:44 Vital Signs / I&O Vital Signs Date Time Temp Pulse Resp B/P (MAP) Pulse Ox O2 Delivery O2 Flow Rate FiO2 03/11/17 06:00 62 03/11/17 05:00 66 03/11/17 04:00 73 03/11/17 03:00 98.5 73 16 116/74 (88) 95 03/11/17 03:00 73 03/11/17 02:00 73 03/11/17 01:00 78 03/11/17 00:00 68 03/11/17 00:00 97.8 75 16 115/76 (89) 94 03/10/17 23:46 97.7 66 12 116/65 (82) 94 Nasal Cannula 2 03/10/17 23:30 67 12 111/73 (86) 95 Nasal Cannula 2 03/10/17 23:15 68 12 114/73 (87) 94 Nasal Cannula 2 03/10/17 23:00 70 17 119/77 (91) 97 Nasal Cannula 2 03/10/17 22:45 70 12 114/70 (85) 92 Nasal Cannula 2 03/10/17 22:44 97.7 69 12 114/69 (84) 93 Nasal Cannula 2 03/10/17 16:00 98.3 43 18 118/67 (84) 95 03/10/17 15:00 74 03/10/17 12:00 98.0 61 18 114/60 (78) 96 I/O 03/10/17 03/10/17 03/10/17 03/11/17 03/11/17 03/11/17 07:00 15:00 23:00 07:00 15:00 23:00 Intake Total 240 ml 594 ml 960 ml Output Total 700 ml Balance 240 ml 594 ml 260 ml Intake Oral 240 ml 480 ml 960 ml IV Total 114 ml Output Urine Total 700 ml # Voids 2 3 # Bowel Movements 0 0 Physical Exam GENERAL: Well-nourished, well-developed patient. SKIN: Warm and dry. Groin sites soft with no bruising or bleeding. HEAD: Normocephalic. EYES: No scleral icterus. No injection or drainage. NECK: Supple, trachea midline. No JVD or lymphadenopathy. CARDIOVASCULAR: Regular rate and rhythm without murmurs, gallops, or rubs. RESPIRATORY: Breath sounds equal bilaterally. No accessory muscle use. GASTROINTESTINAL: Abdomen soft, non-tender, nondistended. EXTREMITIES: No cyanosis, or edema. NEUROLOGICAL: Awake, alert, and oriented x 3. Non-focal. Laboratory Laboratory Tests Test 03/11/17 05:46 Prothrombin Time 11.6 SEC Prothromb Time International Ratio 1.0 RATIO Activated Partial Thromboplast Time 25.7 SEC Assessment and Plan Problem List: (1) Afib ICD Codes: I48.91 - Unspecified atrial fibrillation Plan: Sinus rhythm on telemetry status post ablation of atrial fibrillation. Stable for discharge home from EP standpoint when cleared by managing team. Resume Pradaxa. (2) S/P ablation of atrial fibrillation ICD Codes: Z98.890 - Other specified postprocedural states; Z86.79 - Personal history of other diseases of the circulatory system Plan: Groin sites stable. Stable for discharge home. Follow-up with Dr. vargas in 3 weeks per my discussion with him. Problem Qualifiers (1) Afib: Qualified Codes: I48.0 - Paroxysmal atrial fibrillation Flavia Kan Mar 11, 2017 08:46
--- NOTE | 2017-03-11 09:39 | HHI.PR ---
Subjective Remarks in no acute distress. denies chest pain or sob. wants to go home today. Objective Vitals Vital Signs Date Time Temp Pulse Resp B/P (MAP) Pulse Ox O2 Delivery O2 Flow Rate FiO2 03/11/17 09:15 64 03/11/17 08:53 98.3 63 14 122/73 (89) 96 03/11/17 08:00 63 03/11/17 08:00 63 03/11/17 06:00 62 03/11/17 05:00 66 03/11/17 04:00 73 03/11/17 03:00 98.5 73 16 116/74 (88) 95 03/11/17 03:00 73 03/11/17 02:00 73 03/11/17 01:00 78 03/11/17 00:00 68 03/11/17 00:00 97.8 75 16 115/76 (89) 94 03/10/17 23:46 97.7 66 12 116/65 (82) 94 Nasal Cannula 2 03/10/17 23:30 67 12 111/73 (86) 95 Nasal Cannula 2 03/10/17 23:15 68 12 114/73 (87) 94 Nasal Cannula 2 03/10/17 23:00 70 17 119/77 (91) 97 Nasal Cannula 2 03/10/17 22:45 70 12 114/70 (85) 92 Nasal Cannula 2 03/10/17 22:44 97.7 69 12 114/69 (84) 93 Nasal Cannula 2 03/10/17 16:00 98.3 43 18 118/67 (84) 95 03/10/17 15:00 74 03/10/17 12:00 98.0 61 18 114/60 (78) 96 I/O 03/10/17 03/10/17 03/10/17 03/11/17 03/11/17 03/11/17 07:00 15:00 23:00 07:00 15:00 23:00 Intake Total 240 ml 594 ml 960 ml Output Total 700 ml Balance 240 ml 594 ml 260 ml Intake Oral 240 ml 480 ml 960 ml IV Total 114 ml Output Urine Total 700 ml # Voids 2 3 # Bowel Movements 0 0 Result Diagram: 03/10/1752603/10/17526 Imaging Last Impressions Chest X-Ray 03/07/17 1241 Signed Impressions: Service Date/Time: Tuesday, March 07, 2017 12:59 - CONCLUSION: No acute disease. Jorge L Gamino MD Carotid Artery Ultrasound 03/07/17 0000 Signed Impressions: Service Date/Time: Tuesday, March 07, 2017 15:39 - CONCLUSION: 1. Moderate severity right proximal internal carotid artery disease with hemodynamic parameters characteristic of 50-70%% stenosis. 2. Normal hemodynamic profile on the left side. Pawan Christopher MD Objective Remarks GENERAL: This is a well-nourished, well-developed patient, in no apparent distress. CARDIOVASCULAR: irregular rhythm without murmurs, gallops, or rubs. RESPIRATORY: Clear to auscultation. Breath sounds equal bilaterally. No wheezes , rales, or rhonchi. GASTROINTESTINAL: Abdomen soft, non-tender, nondistended. Normal, active bowel sounds MUSCULOSKELETAL: Extremities without clubbing, cyanosis, or edema. NEURO: Alert & Oriented x4 to person, place, time, situation. Moves all ext x4 Medications and IVs Current Medications Sodium Chloride (NS Flush) 2 ml UNSCH PRN IVF FLUSH AFTER USING IV ACCESS; Start 03/07/17 at 12:45; Stop 03/09/17 at 08:38; Status DC Sodium Chloride 1,000 ml @ 1,000 mls/hr Q1H ONCE IV Last administered on 03/07 12:41; Start 03/07/17 at 12:41; Stop 03/07/17 at 13:40; Status DC Morphine Sulfate (Morphine Inj) 4 mg ONCE ONCE IV PUSH Last administered on 13:30; Start 03/07/17 at 13:30; Stop 03/07/17 at 13:32; Status DC Nitroglycerin (Nitrostat Sl) 0.4 mg Q5M SL ; Start 03/07/17 at 13:30; Stop at 13:41; Status DC Clopidogrel Bisulfate (Plavix) 75 mg DAILY PO Last administered on 03/10/17 08:39; Start 03/08/17 at 09:00 Dabigatran (Pradaxa) 150 mg BID PO Last administered on 03/08/17 09:34; Start 03/07/17 at 21:00; Status Future hold Atorvastatin Calcium (Lipitor) 80 mg DAILY PO Last administered on 03/10/17 08:39; Start 03/08/17 at 09:00 Sodium Chloride 1,000 ml @ 75 mls/hr [id number] IV Last administered on 18:30; Start 03/07/17 at 14:23 Sodium Chloride (NS Flush) 2 ml UNSCH PRN IV FLUSH FLUSH AFTER USING IV ACCESS ; Start 03/07/17 at 14:30 Sodium Chloride (NS Flush) 2 ml BID IV FLUSH Last administered on 03/11/17 00 :41; Start 03/07/17 at 21:00 Naloxone HCl (Narcan Inj) 0.4 mg UNSCH PRN IV PUSH SEE LABEL COMMENTS; Start 03/07/17 at 14:30 Magnesium Hydroxide (Milk Of Magnesia Liq) 30 ml Q12H PRN PO Mild constipation ; Start 03/07/17 at 14:30 Sennosides (Senokot) 17.2 mg Q12H PRN PO Moderate constipation; Start at 14:30 Bisacodyl (Dulcolax Supp) 10 mg DAILY PRN RECTAL SEVERE CONSITIPATION; Start 03/07/17 at 14:30 Lactulose (Lactulose Liq) 30 ml DAILY PRN PO SEVERE CONSITIPATION; Start 03/07 at 14:30 Metoprolol Tartrate (Lopressor) 25 mg Q12HR PO Last administered on 03/11/17 00:41; Start 03/07/17 at 21:00 Nitroglycerin (Nitrostat Sl) 0.4 mg Q5M PRN SL CHEST PAIN Last administered on 03/08/17 08:41; Start 03/08/17 at 08:45 Heparin Sodium/ Sodium Chloride 500 ml @ As Directed STK-MED ONCE .ROUTE Last administered on 03/09/17 07:10; Start 03/09/17 at 07:10; Stop 03/09/17 at 07 :11; Status DC Midazolam HCl (Versed Inj) 2 mg STK-MED ONCE .ROUTE Last administered on 07:39; Start 03/09/17 at 07:10; Stop 03/09/17 at 07:11; Status DC Heparin Sodium (Porcine) (Heparin Inj) 10,000 units STK-MED ONCE .ROUTE Last administered on 03/09/17 07:44; Start 03/09/17 at 07:11; Stop 03/09/17 at 07 :12; Status DC Nitroglycerin 5 ml @ As Directed STK-MED ONCE .ROUTE Last administered on 03/09 07:44; Start 03/09/17 at 07:11; Stop 03/09/17 at 07:12; Status DC Verapamil HCl (Isoptin Inj) 5 mg STK-MED ONCE .ROUTE Last administered on 03/09 07:44; Start 03/09/17 at 07:24; Stop 03/09/17 at 07:25; Status DC Fentanyl Citrate (fentaNYL INJ) 100 mcg STK-MED ONCE .ROUTE Last administered on 03/09/17 07:41; Start 03/09/17 at 07:40; Stop 03/09/17 at 07:41; Status DC Midazolam HCl (Versed Inj) 2 mg STK-MED ONCE .ROUTE Last administered on 07:43; Start 03/09/17 at 07:42; Stop 03/09/17 at 07:43; Status DC Midazolam HCl (Versed Inj) 2 mg STK-MED ONCE .ROUTE ; Start 03/09/17 at 07:54; Stop 03/09/17 at 07:55; Status DC Oxycodone/ Acetaminophen (Percocet 5-325 Mg) 1 tab Q4H PRN PO PAIN SCALE 1 TO 10; Start 03/09/17 at 08:30; Stop 03/10/17 at 21:48; Status DC Enoxaparin Sodium (Lovenox Inj) 90 mg ONCE ONCE SQ ; Start 03/09/17 at 09:00; Stop 03/09/17 at 09:01; Status DC Iohexol (OMNIPAQUE 350 INJ (Physics Professor)) 50 ml STK-MED ONCE OTHER ; Start at 15:28; Stop 03/09/17 at 15:29; Status DC Heparin Sodium/ Dextrose 250 ml @ As Directed STK-MED ONCE .ROUTE ; Start at 19:04; Stop 03/10/17 at 19:05; Status DC Isoproterenol HCl (Isuprel Inj) 1 mg STK-MED ONCE .ROUTE ; Start 03/10/17 at 19 :04; Stop 03/10/17 at 19:05; Status DC Protamine Sulfate (Protamine Sulfate Inj) 50 mg STK-MED ONCE .ROUTE ; Start at 19:04; Stop 03/10/17 at 19:05; Status DC Heparin Sodium (Porcine) (Heparin Inj) 20,000 units STK-MED ONCE .ROUTE ; Start 03/10/17 at 19:05; Stop 03/10/17 at 19:06; Status DC Heparin Sodium/ Sodium Chloride 2,000 ml @ As Directed STK-MED ONCE .ROUTE ; Start 03/10/17 at 19:24; Stop 03/10/17 at 19:25; Status DC Levofloxacin/ Dextrose 100 ml @ As Directed STK-MED ONCE IV ; Start 03/10/17 at 19:24; Stop 03/10/17 at 19:25; Status DC Oxycodone/ Acetaminophen (Percocet 5-325 Mg) 1 tab Q4H PRN PO PAIN SCALE 1 TO 4; Start 03/10/17 at 21:45 Oxycodone/ Acetaminophen (Percocet 5-325 Mg) 2 tab Q4H PRN PO PAIN SCALE 5 TO 10; Start 03/10/17 at 21:45 Lorazepam (Ativan Inj) 0.5 mg UNSCH PRN IV PUSH ANXIETY; Start 03/10/17 at 21: 45; Stop 03/11/17 at 21:44 Atropine Sulfate (Atropine Inj) 0.5 mg UNSCH PRN IV PUSH VAGAL REPONSE; Start 03/10/17 at 21:45 Sodium Chloride 250 ml @ 500 mls/hr ONCE PRN IV VAGAL REPONSE; Start at 21:45; Stop 03/11/17 at 21:44 Ondansetron HCl (Zofran Inj) 4 mg Q4H PRN IV PUSH NAUSEA; Start 03/10/17 at 21 :45 Lidocaine HCl (Xylocaine 1% Inj (50 ml)) 10 ml UNSCH PRN INFIL SHEATH REMOVAL; Start 03/10/17 at 21:45; Stop 03/11/17 at 21:44 Bacitracin (Bacitracin Oint Packet) 0.9 gm ONCE ONCE TOP ; Start 03/10/17 at 21:45; Stop 03/10/17 at 21:46; Status DC Furosemide (Lasix Inj) 40 mg STK-MED ONCE .ROUTE ; Start 03/10/17 at 21:42; Stop 03/10/17 at 21:43; Status DC Furosemide (Lasix Inj) 40 mg STK-MED ONCE .ROUTE ; Start 03/10/17 at 21:43; Stop 03/10/17 at 21:44; Status DC Protamine Sulfate (Protamine Sulfate Inj) 50 mg STK-MED ONCE .ROUTE ; Start at 21:52; Stop 03/10/17 at 21:53; Status DC Miscellaneous Information ALL NURSING DEPARTME... UNSCH PRN .XX SEE LABEL COMMENTS; Start 03/10/17 at 22:45; Stop 03/11/17 at 22:44 A/P Assessment and Plan A/P Chest pain: with known history of CAD s/p cardiac stent 02/05/17 - Trended serial cardiac enzymes, negative x4 - Consult patients test desk operator Dr. Venu Garcia, appreciate his assistance - Continuous cardiac monitoring - Supplemental oxygen - Continue patient's home medications including Lipitor, Plavix, Metoprolol and Pradaxa. - heart healthy diet - s/p cardiac catheterization 03/[address] Garcia, mostly unremarkable, continued wide patency of previous LAD stent; no areas requiring revascularization Atrial fibrillation -s/p ablation- stable - rate controlled - Continue patient on home dose of Pradaxa 150mg BID - Continue patient on Metoprolol 25mg BID -cleared by EP cardiology for discharge. Syncope/near syncopal episode: suspect secondary to afib/arrhythmia - UDS negative - Given IVF hydration - Echocardiogram with normal systolic function, EF 60-65% - Carotid U/S showed Moderate severity right proximal internal carotid artery disease with hemodynamic parameters characteristic of 50-70% stenosis, see below - no further near syncopal events while in the hospital Carotid Stenosis: Carotid U/S with moderate severity right proximal internal carotid artery disease with hemodynamic parameters characteristic of 50-70% stenosis; normal left side -consulted vascular surgery, recommends outpatient f/up in 6 months -continue home meds Tobacco Use: chronic - discussed importance of cessation DVT prophylaxis- patient is on Pradaxa Discharge Planning dc home today. see med list. f/u ; pcp,cardiology and vascular surgery. d/w the patient. Mason Venegas MD Mar 11, 2017 09:39
[2017-03-11] MEDS ORDERED: METO25TA3 PO (09:40)
--- NOTE | 2017-03-11 09:42 | HHI.DS ---
Discharge Summary Admission Date Mar 07, 2017 at 18:10 Discharge Date: Mar 11, 2017 Admitting Diagnosis Syncope/Arythmia/Chest Pain (1) Afib ICD Code: I48.91 - Unspecified atrial fibrillation Diagnosis: Principal (2) Syncope and collapse ICD Code: R55 - Syncope and collapse Diagnosis: Principal Status: Acute Procedures cardiac cath/ cardiac ablation. Brief History - From Admission Written by Gloria Pate, acting as scribe for Dr. Gonzales on 03/07/17 at 16: 56. This patient is a 61-year-old male with past medical history significant for coronary artery disease status post recent cardiac catheterization and stent implant 02/05/17 and atrial fibrillation who presents to [facility] with complaints of syncopal event while standing in line for some water at the [employer] earlier today. Patient states he had just walked over to [place] from [employer] when he developed palpitations and lightheadedness. He felt himself begin to pass out and braced himself with his left arm. Patient denies every losing consciousness. He states he felt dehydrated prior to the incident. Paramedics at the scene told him his EKG showed atrial fibrillation. Reportedly, patient is scheduled for an ablation in the next several weeks. He is currently on Plavix, Lipitor, Pradaxa and Metoprolol. Per review of the ED note, patient had couple episodes of bigeminy in transport which improved with oxygen. EKG showed NSR with occasional PVCs. While in the ED, patient also complained of "chest tightening " that he described as left sided pressure. Patient was given IV Morphine with improvement in symptoms after a few minutes. Patient had a repeat EKG was obtained showing no changes from previous. CXR unremarkable for acute disease. Patient denies any recent illness. He denies any fever, chills or vision changes. He does report increased fatigue since having the cardiac stent implanted. He denies any dyspnea. He denies any nausea, vomiting or abdominal pain. He denies any urinary difficulties, diarrhea or constipation. CBC/BMP: 03/10/1727 03/10/1727 Significant Findings Laboratory Tests Test 03/10/17 05:27 03/11/17 05:46 Red Blood Count 4.40 MIL/MM3 (4.50-5.90) Mean Corpuscular Hemoglobin 34.6 PG (27.0-34.0) Calcium Level 8.4 MG/DL (8.5-10.1) Chloride Level 109 MEQ/L (98-107) Imaging Last Impressions Chest X-Ray 03/07/17 1241 Signed Impressions: Service Date/Time: Tuesday, March 07, 2017 12:59 - CONCLUSION: No acute disease. Jorge L Gamino MD Carotid Artery Ultrasound 03/07/17 0000 Signed Impressions: Service Date/Time: Tuesday, March 07, 2017 15:39 - CONCLUSION: 1. Moderate severity right proximal internal carotid artery disease with hemodynamic parameters characteristic of 50-70%% stenosis. 2. Normal hemodynamic profile on the left side. Pawan Christopher MD PE at Discharge GENERAL: This is a well-nourished, well-developed patient, in no apparent distress. CARDIOVASCULAR: irregular rhythm without murmurs, gallops, or rubs. RESPIRATORY: Clear to auscultation. Breath sounds equal bilaterally. No wheezes , rales, or rhonchi. GASTROINTESTINAL: Abdomen soft, non-tender, nondistended. Normal, active bowel sounds MUSCULOSKELETAL: Extremities without clubbing, cyanosis, or edema. NEURO: Alert & Oriented x4 to person, place, time, situation. Moves all ext x4 Hospital Course Chest pain: with known history of CAD s/p cardiac stent 02/05/17 - Trended serial cardiac enzymes, negative x4 - Consult patients sample tester Dr. Venu Garcia, appreciate his assistance - Continuous cardiac monitoring - Supplemental oxygen - Continue patient's home medications including Lipitor, Plavix, Metoprolol and Pradaxa. - heart healthy diet - s/p cardiac catheterization 03/[address] Garcia, mostly unremarkable, continued wide patency of previous LAD stent; no areas requiring revascularization Atrial fibrillation -s/p ablation- stable - rate controlled - Continue patient on home dose of Pradaxa 150mg BID - Continue patient on Metoprolol 25mg BID -cleared by EP cardiology for discharge. Syncope/near syncopal episode: suspect secondary to afib/arrhythmia - UDS negative - Given IVF hydration - Echocardiogram with normal systolic function, EF 60-65% - Carotid U/S showed Moderate severity right proximal internal carotid artery disease with hemodynamic parameters characteristic of 50-70% stenosis, see below - no further near syncopal events while in the hospital Carotid Stenosis: Carotid U/S with moderate severity right proximal internal carotid artery disease with hemodynamic parameters characteristic of 50-70% stenosis; normal left side -consulted vascular surgery, recommends outpatient f/up in 6 months -continue home meds Tobacco Use: chronic - discussed importance of cessation DVT prophylaxis- patient is on Pradaxa Pt Condition on Discharge: Stable Discharge Disposition: Discharge Home Discharge Time: <= 30 minutes Discharge Instructions DIET: Follow Instructions for: Heart Healthy Diet Activities you can perform: Regular-No Restrictions Follow up Referrals: Cardiology PCP Follow-up Vascular Surgery @ Vascular Surgery with Tushar Antonio MD New Medications: Metoprolol Tartrate (Metoprolol Tartrate) 25 Mg Tab 25 MG PO Q12HR for a-fib for 30 Days, TAB 0 Refills Continued Medications: Clopidogrel (Plavix) 75 Mg Tab 75 MG PO DAILY for Blood Clot Prevention, #30 TAB 0 Refills Dabigatran (Pradaxa) 150 Mg Cap 150 MG PO BID for Blood Clot Prevention, #60 CAP 0 Refills Rosuvastatin (Crestor) 40 Mg Tab 40 MG PO DAILY for Cholesterol Management, #30 TAB 0 Refills Discontinued Medications: Digoxin (Digoxin) 0.25 Mg Tab 0.25 MG PO DAILY for Regulate Heart Beat, #30 TAB 0 Refills Mason Venegas MD Mar 11, 2017 09:42
[2017-03-11] MEDS: CLOPIDOGREL 75 MG TAB PO SCH (09:46)
[2017-03-11] MEDS: ATORVASTATIN 80 MG TAB PO SCH (09:46)
[2017-03-11] MEDS: DABIGATRAN ETEXILATE 150 MG CAP PO SCH (09:46)
--- NOTE | 2017-03-11 13:33 | EKG ---
Date Performed: 03/11/2017 Time Performed: 06:11:42 PTAGE: 61 years EKG: Sinus rhythm Normal ECG PREVIOUS TRACING : 03/10/2017 22.54 Compared to prior electrocardiogram, Nonspecific T wave antonio nges no longer present. DOCTOR: Noam Jolly Interpretating Date/Time 03/11/2017 13:31:55
== END 2017-03-11 10:54 | disposition home or self-care (01) | DRG 274 ==
LOC: NEPC 12:32 → INTOOBSV 14:16 → NEDA 14:16 → NEPGCP 15:35 → OBSVTOIN 18:10 → HCIS 03-09 08:01
PROVIDERS: ADMIT Internal Medicine; ATTEND Internal Medicine
PROC: 3E0F7GC Introduction of Other Therapeutic Substance into Respiratory Tract, Via Natural or Artificial Opening (ICD-10-PCS; 2017-03-07)
PROC: B2111ZZ Fluoroscopy of Multiple Coronary Arteries using Low Osmolar Contrast (ICD-10-PCS; 2017-03-09)
PROC: 4A023N7 Measurement of Cardiac Sampling and Pressure, Left Heart, Percutaneous Approach (ICD-10-PCS; 2017-03-09)
PROC: B2151ZZ Fluoroscopy of Left Heart using Low Osmolar Contrast (ICD-10-PCS; 2017-03-09)
PROC: 4A023FZ Measurement of Cardiac Rhythm, Percutaneous Approach (ICD-10-PCS; 2017-03-10)
PROC: 4A0234Z Measurement of Cardiac Electrical Activity, Percutaneous Approach (ICD-10-PCS; 2017-03-10)
PROC: 02K83ZZ Map Conduction Mechanism, Percutaneous Approach (ICD-10-PCS; 2017-03-10)
PROC: 4A023FZ Measurement of Cardiac Rhythm, Percutaneous Approach (ICD-10-PCS; 2017-03-10)
PROC: 4A0234Z Measurement of Cardiac Electrical Activity, Percutaneous Approach (ICD-10-PCS; 2017-03-10)
PROC: B244ZZZ Ultrasonography of Right Heart (ICD-10-PCS; 2017-03-10)
PROC: 02583ZZ Destruction of Conduction Mechanism, Percutaneous Approach (ICD-10-PCS; principal; 2017-03-10 17:30)
DX: I48.0 Paroxysmal atrial fibrillation (principal); I65.21 Occlusion and stenosis of right carotid artery; F17.200 Nicotine dependence, unspecified, uncomplicated; S50.312A Abrasion of left elbow, initial encounter; S50.812A Abrasion of left forearm, initial encounter; W18.39XA Other fall on same level, initial encounter; Y93.89 Activity, other specified; Y92.838 Other recreation area as the place of occurrence of the external cause; I25.10 Atherosclerotic heart disease of native coronary artery without angina pectoris; I49.3 Ventricular premature depolarization; R07.9 Chest pain, unspecified; E78.5 Hyperlipidemia, unspecified; Z79.01 Long term (current) use of anticoagulants; Z95.5 Presence of coronary angioplasty implant and graft; Z80.0 Family history of malignant neoplasm of digestive organs; Z80.7 Family history of other malignant neoplasms of lymphoid, hematopoietic and related tissues; Z82.49 Family history of ischemic heart disease and other diseases of the circulatory system; Z79.02 Long term (current) use of antithrombotics/antiplatelets
CPT/HCPCS: 71010; 80048; 80053; 80162; 80307; 81001; 82550; 83735; 84443; 84484; 85002; 85025; 85610; 85730; 93005; 93306; 93312; 93320; 93325; 93458; 93613; 93623; 93656; 93662; 93880; 96361; 96374; 99152; 99153; C1730; C1731; C1732; C1759; C1766; C1769; C1893; C2630; J1644; J1940; J1956; J2250; J2270; J2720; J3010; J7030; Q9967

== ENCOUNTER 2017-06-16 07:39 | Day surgery (SDC) | payer SELFPAY ==
[~2017-06-16] VITALS: Ht 182.9 cm; Wt 95.1 kg
[~2017-06-16 07:39] MED LIST changes: -APIX5TAB PO; -ASPI81 PO; -DIGO0.25 PO; +METO25TA3 PO; +PLAV75TA29 PO; +PRAD150C PO
[2017-06-16] MEDS ORDERED: IOHEXOL 350 MG/ML 100 ML BTL (for Cath Lab) OTHER ONE (07:40)
[2017-06-16] MEDS ORDERED: ATOR40TA16 PO (08:25)
[2017-06-16] MEDS ORDERED: COQ-50CA2 PO (08:26)
[2017-06-16] MEDS ORDERED: NS 1000P @30 MLS/HR (KVO) IV SCH (08:30)
[2017-06-16] MEDS ORDERED: ASPIRIN 325 MG TAB PO SCH (08:30)
[2017-06-16 08:38] VITALS: BP 119/83; PULSE 71; RESP 18; TEMP 97.9; O2SAT 96
[2017-06-16 08:53] LABS: AUTOMATED NEUTROPHIL # 5.4 TH/MM3 (1.8-7.7); BASOPHIL % 0.6 % (0.0-2.0); EOSINOPHIL # 0.2 TH/MM3 (0-0.4); EOSINOPHIL % 1.9 % (0.0-4.0); HEMATOCRIT 45.6 % (39.0-51.0); HEMOGLOBIN 16.2 GM/DL (13.0-17.0); LYMPH % 23.5 % (9.0-44.0); LYMPHOCYTE # 1.9 TH/MM3 (1.0-4.8); MEAN CELL VOLUME 95.8 FL (80.0-100.0); MEAN CORPUSCULAR HEMOGLOBIN 33.9 PG (27.0-34.0); MEAN CORPUSCULAR HGB CONC 35.4 % (32.0-36.0); MONO % 9.1 % (0.0-8.0); MONOCYTE # 0.8 TH/MM3 (0-0.9); NEUT % 64.9 % (16.0-70.0); PLATELET COUNT 224 TH/MM3 (150-450); RED BLOOD COUNT 4.76 MIL/MM3 (4.50-5.90); RED CELL DISTRIBUTION WIDTH 13.2 % (11.6-17.2); WHITE BLOOD COUNT 8.3 TH/MM3 (4.0-11.0)
[2017-06-16 09:01] LABS: INTERNATIONAL NORMALIZED RATIO 1.1 RATIO; PROTHROMBIN TIME - PATIENT 10.8 SEC (9.8-11.6)
[2017-06-16 09:28] LABS: BICARBONATE 22.2 MEQ/L (21.0-32.0); CALCIUM 8.7 MG/DL (8.5-10.1); CREATININE 0.86 MG/DL (0.60-1.30)
[2017-06-16] MEDS ORDERED: MIDAZOLAM HCL 2 MG/2 ML VIAL ONE (09:41)
[2017-06-16] MEDS ORDERED: VERAPAMIL HCL 5 MG/2 ML VIAL ONE (09:41)
[2017-06-16] MEDS ORDERED: HEPARIN SODIUM - IV 10,000 UNITS/10 ML VIAL ONE (09:41)
[2017-06-16] MEDS ORDERED: HEPARIN-NS/PF FLUSH BAG 2,000 ML IV FLUSH ONE (09:41)
[2017-06-16] MEDS ORDERED: NITROGLYCERIN INJ 5 ML ONE (09:42)
[2017-06-16] MEDS ORDERED: MIDAZOLAM HCL 5 MG/5 ML VIAL ONE (10:11)
[2017-06-16] MEDS ORDERED: SODIUM CHLOR 0.9% 1000 ML INJ 1,000 ML IV SCH (10:50)
--- NOTE | 2017-06-16 10:54 | CATHPROC ---
[employer] HIS Report Study Information Study Number Admission Scheduled Start Study Start [id number] Jun 16 2017 7:39AM 06/16/2017 Jun 16 2017 9:29AM [facility] Service Cardiac Catheterization Admit Source Facility Department Other [facility] [employer] Physician and Clinical Staff Initial Venu Teresa Glass Cutting Machine Feeder Brandy Khoury,RN Recorder Priscilla Ditez,RT(R) Scrub Kecia Mary,RT(R) Procedures Performed Procedure Location (Site) Vessel Name Coronary Angiograms LCA Left Coronary Coronary Angiograms RCA Right Coronary L Heart Cath LV Gram-hand inj. LV LV Ventricle Wire insertion Radial (right) Radial Art. Equipment Time Tattoo Designer Description Size Mfg Part Number Used/Scraped TRANSDUCER, TRUWAVE [id number] 09:54 OBRIEN VERDUZCO * Used W/STOCKCOCK *[id number] [id number] *[id number] [id number] *[id number] [id number] *[id number] [id number] *[id number] 09:54 MALLINCKRODT SYRINGE, ANGIOMAT 150ML 150ML *[id number] Used 2SUB [id number] 09:54 Vendormate PACK, CCL CUSTOM * Used *[id number] 09:54 Vendormate SUPPORT, ARTERIAL ADULT 15945 *[id number] Used [id number] 09:54 [employer] PACER PEN, SKIN DUAL W/ RULER * Used *[id number] 09:39 MEDTRONIC JR 5.0 DXTERITY CATHETER fr 5 [id number] Used 10:07 MEDTRONIC JR 5.0 DXTERITY CATHETER fr 5 [id number] Used 10:15 MEDTRONIC JR 5.0 DXTERITY CATHETER fr 5 [id number] Used BAND, RADIAL COMPRESSION TR [id number] 10:29 [employer]ova MEDICAL 24CM Used SHORT 24 *[id number] 09:54 [employer]ova MEDICAL WIRE, EXCHANGE 260CM 3MMJ 260CM Used *[id number] 09:54 NAMIC MANIFOLD, 4 PORT * Used *[id number] 09:54 NYCOMED OMNIPAQUE, 350 MG, 100ML 100ML [id number] Used [id number] 09:54 [employer] MEDICAL BLANKET,WARM AIR CCL * Used *[id number] 09:54 Yotpo JELCO NEEDLE 4056 *[id number] Used CATHETER, FR5 OPTITORQUE [id number] 09:55 WhatSalon FR 5 Used RADIAL TIG 4.0 *[id number] SHEATH, FR6 TRANSRADIAL RM*[id number] 09:54 TERUMO Dipity FR 6 Used SLENDER 10CM *[id number] Equipment Model, Serial, Lot Number and Expiration Data Description Model Number Serial Number Lot Number Expiration Date BAND, RADIAL COMPRESSION TR [id number] 02-11-2020 SHORT 24 JR 5.0 DXTERITY CATHETER [id number] 10-17-2019 JR 5.0 DXTERITY CATHETER [id number] 10-17-2019 JR 5.0 DXTERITY CATHETER [id number] 10-17-2019 History: Current Medications Medication Dosage/Unit Route Frequency Last Date/Time Taken LOPRESSOR PRADAXA PLAVIX Statins (any) History: Allergies Allergy Reaction ketorolac History: Risk Factors Family History of Hypertension Dyslipidemia Previous KS Previous Heart Failure Premature CAD Yes Yes No No No Prior Valve Prior PCI Prior PCIDate Prior CABG Surgery No Yes 02/05/2017 No Cerebrovascular Peripheral Artery Chronic Lung On Dialysis Diabetes Disease Disease Disease No No No No No History: CV Disease Selection Items Known CAD History: Stress Tests Stress or Imaging Studies Performed Yes Standard Exercise Stress Test No Stress Echo No Stress Test SPECT Stress Test SPECT Result Stress Test SPECT Ischemia Risk/Extent Yes Positive Intermediate Stress Test CMR No Cardiac CTA Coronary Calcium Score No No History: Other Current Smoker Method Packs a Day Years Used Pack Years Yes Cigarettes 1 40 40 Labs Hgb (g/dl) Hct (%) RBC (MIL/MM3) WBC (l/cumm) Platelets (thousands) 11.60-17.00 35.00-51.00 4.00-5.90 4.00-11.00 150.00-450.00 16.2 45.6 4.7 8.3 224 Glucose (mg/dl) BUN (mg/dl) Creatinine (mg/dl) BUN:Creatinine (1:x) 74.00-106.00 7.00-18.00 0.50-1.30 10.00-20.00 98 16 0.8 20 Na (meq/l) K (meq/l) Cl (meq/l) CO2 (mmol/L) Ca (mg/dl) 136.00-145.00 3.50-5.10 98.00-107.00 21.00-32.00 8.50-10.10 139 4.4 108 22.2 8.7 PT (sec) PTT (sec) INR (PTT:PT) 9.80-11.60 24.30-30.10 0.90-1.10 10.8 26.7 1.1 CPK-MB (ng/ML) 0.50-3.60 Not Drawn Medication Medication Total Dose (Bolus/Oral) Medication Total Dosage/Unit 1% XYLOCAINE 20 mL FENTANYL 50 mcg RADIAL COCKTAIL 5 mL (Bolus) VERSED 4 mg Medications (Bolus/Oral) Medication Time Given Dosage/Unit Administered By Reason VERSED 06/16/2017 10:09:29 AM 2 mg Brandy Khoury 2 mg VERSED given in lab by Brandy Khoury RN in Left Wrist via Peripheral IV. 1% XYLOCAINE 06/16/2017 10:09:48 AM 20 mL Venu Garcia 20 mL 1% XYLOCAINE given in lab by Venu Garcia in Right Radial via Subcutaneous. VERSED 06/16/2017 10:12:33 AM 1 mg Brandy Khoury 1 mg VERSED given in lab by Brandy Khoury, CASIMIRO via Peripheral IV. Ntg 200mcg Verapamil 2.5mg Heparin RADIAL COCKTAIL 06/16/2017 10:15:12 AM 5 mL (Bolus) Venu Garcia 2500U 5 mL (Bolus) RADIAL COCKTAIL given in lab by Venu Garcia via Radial. Using [Solution Name]. Reason: Ntg 200mcg Verapamil 2.5mg Heparin 2500U. FENTANYL 06/16/2017 10:18:12 AM 50 mcg Brandy Khoury 50 mcg FENTANYL given in lab by Brandy Khoury, CASIMIRO via Peripheral IV. VERSED 06/16/2017 10:23:13 AM 1 mg Brandy Khoury 1 mg VERSED given in lab by Brandy Khoury, CASIMIRO via Peripheral IV. Medication (Drip) Medication Time Given Dosage/Unit Concentration/Unit Diluent (ml) Solutio n IV Solutions 06/16/2017 9:40:21 AM 0 mL (IV) 500 NaCl .9 Patient arrived on IV Solutions in Left Wrist via Peripheral IV. Pump/Drip Flow = 20 ml/hr using NaCl .9. Initial Case Assessment Cardiovascular HR Rhythm NIBP Chest Pain 61 reg-pvc 117/80 0 Edema Present Skin color Skin None Normal Warm Circulatory - Right Pulses Dorsalis Pedis Femoral Radial 2 2 2 Scale (0,1,2,3,4,d) Circulatory - Left Pulses Dorsalis Pedis Femoral Radial 2 Scale (0,1,2,3,4,d) Neurological State Oriented to time-place- Alert Moves all extremities person Respiration - General Respiration Rate SpO2 (%) (B/min) 11 95 Final Case Assessment Cardiovascular HR Rhythm NIBP Chest Pain 62 reg-pvc 113/76 0 Edema Present Skin color Skin None Normal Warm Circulatory - Right Pulses Dorsalis Pedis Femoral Radial 2 2 2 Scale (0,1,2,3,4,d) Circulatory - Left Pulses Dorsalis Pedis Femoral Radial 2 Scale (0,1,2,3,4,d) Circulatory - Lower Extremities Color Lower Right Normal Neurological State Oriented to time-place- Alert Moves all extremities person Respiration - General Respiration Rate SpO2 (%) (B/min) 15 95 Chronological Log Time Study Chronological Log 9:28:09 Patient arrived via Bed. 9:39:33 Reference ECG taken 9:39:34 Patient Name, D.O.B, / Armband Verified By R.N. 9:39:35 Consent signed by the physician and the patient and verified by the [facility] [employer] staff. 9:39:35 Pre-op and post- op instructions given; patient acknowledges understanding of instructions. 9:39:36 Verbal Stimulation=2 Physical Stimulation=2 Airway=2 Respiration=2 TOTAL=8. (0=absent, 1=li mited, 2=present) Allens test performed on the right radial and ulnar artery by nigel dietz with a positive result 9:39:39 Vitals capture started with the following parameters, Patient=Adult, Interval=5 min, Initial Pr pobjjw=861 mmHg, 9:39:49 Deflation Rate=5 mmHg, Cuff placed on Left arm 9:40:05 Patient has been NPO for More than 6Hrs. 9:40:06 Skin Breakdown- 9:40:11 A # 20 IV was noted in the Wrist (left). Grade = 0 9:40:21 Patient arrived on IV Solutions in Left Wrist via Peripheral IV. Pump/Drip Flow = 20 ml/hr using NaCl .9. 9:40:28 HR=62 bpm, KYIE=556/80 mmhg, SpO2=94.0 %, Resp=18 B/min, Pain=0, Barrera=10, Martel=2 9:40:39 History and physical on the chart or being dictated. Assessment: Initial Case, HR=61 BPM, Rhythm=reg-pvc, WTZA=502/80 mmhg, Chest Pain=0, Edema=None , Color=Normal, Skin = Warm Right Pulses: Brad Ped=2, Femoral=2, Radial=2 9:40:40 Left Pulses: Femoral=2 Neurological: State=Alert, Ox3, WALLACE Respiration: Resp=11 B/min, SpO2=95 % 9:41:16 Right Radial and groin(s) prepped with 2% chlorhexidine, and draped after a 3 min. waiting t preston. 9:45:17 HR=59 bpm, PRXV=558/80 mmhg, SpO2=95.0 %, Resp=17 B/min, Pain=0, Barrera=10, Martel=2 9:48:23 Pressure channel 1 zeroed. 9:50:20 HR=63 bpm, GUSA=053/81 mmhg, SpO2=95.0 %, Resp=15 B/min, Pain=0, Barrera=10, Martel=2 9:52:40 MD texted 9:55:19 HR=61 bpm, XTQS=800/79 mmhg, SpO2=96.0 %, Resp=11 B/min, Pain=0, Barrera=10, Martel=2 10:00:20 HR=60 bpm, EAUF=486/69 mmhg, SpO2=93.0 %, Resp=16 B/min, Pain=0, Barrera=10, Martel=2 10:00:52 MD arrived. 10:05:19 HR=60 bpm, QIRV=413/84 mmhg, SpO2=95.0 %, Resp=14 B/min, Pain=0, Barrera=10, Martel=2 Time Out. Correct patient, correct procedure, correct physician, power injector not loaded with contrast with surgical 10:09:21 team present. Time Out Concurred by MD and individual staff in procedure. 10:09:29 2 mg VERSED given in lab by Brandy Khoury, RN in Left Wrist via Peripheral IV. 10:09:40 Case Start 10:09:42 Verbal Stimulation=2 Physical Stimulation=2 Airway=2 Respiration=2 TOTAL=8. (0=absent, 1=li mited, 2=present) 10:09:48 20 mL 1% XYLOCAINE given in lab by Venu Garcia in Right Radial via Subcutaneous. 10:10:20 HR=60 bpm, VSKK=353/81 mmhg, SpO2=95.0 %, Resp=9 B/min, Pain=0, Barrera=10, Martel=2 10:12:33 1 mg VERSED given in lab by Brandy Khoury, CASIMIRO via Peripheral IV. 10:14:42 Access site was Radial Artery.rt 10:14:49 A wire was inserted via Radial (right). A SHEATH, FR6 TRANSRADIAL SLENDER 10CM FR 6 was advanced into the Radial (right) using the Perc utaneous 10:15:03 technique. 5 mL (Bolus) RADIAL COCKTAIL given in lab by Venu Garcia via Radial. Using [Solution Name]. R benito: Ntg 200mcg 10:15:12 Verapamil 2.5mg Heparin 2500U. 10:15:23 HR=61 bpm, TNBW=905/82 mmhg, SpO2=96.0 %, Resp=20 B/min, Pain=0, Barrera=10, Martel=2 A JL 3.5 INFINITI CATHETER FR 5 was advanced over a wire. OMNIPAQUE, 350 MG, 100ML 100ML was us ed for 10:17:11 injections. 10:18:12 50 mcg FENTANYL given in lab by Brandy Khoury, CASIMIRO via Peripheral IV. 10:20:22 HR=71 bpm, KGJM=922/69 mmhg, SpO2=90.0 %, Resp=21 B/min, Pain=0, Barrera=10, Martel=2 10:23:12 The LCA was injected and visualized at various angles. OMNIPAQUE, 350 MG, 100ML 100ML used . 10:23:13 1 mg VERSED given in lab by Brandy Khoury, CASIMIRO via Peripheral IV. 10:26:00 HR=63 bpm, NSTO=233/67 mmhg, SpO2=92.0 %, Resp=19 B/min, Pain=0, Barrera=10, Martel=2 After removing the current catheter a JR 3.5 INFINITI CATHETER FR 5 was advanced over a WIRE, E XCHANGE 260CM 10:29:07 3MMJ 260CM. 10:30:22 HR=67 bpm, MAIG=409/67 mmhg, SpO2=93.0 %, Resp=16 B/min, Pain=0, Barrera=10, Martel=2 10:32:28 The RCA was injected and visualized at various angles. OMNIPAQUE, 350 MG, 100ML 100ML used . After removing the current catheter a PIGTAIL ANG. INFINITI CATHETER FR 5 was advanced over a W JIMENA, EXCHANGE 10:33:47 260CM 3MMJ 260CM. 10:35:21 HR=65 bpm, FYLS=476/76 mmhg, SpO2=93.0 %, Resp=13 B/min, Pain=0, Barrera=10, Martel=2 Recorded Pressure: LV, HR=65, Condition=Condition 1 10:36:54 (Left Ventricle) LV 113/3/10 10:37:00 The LV was manually injected with 10 cc's and visualized. OMNIPAQUE, 350 MG, 100ML 100ML u sed. Recorded Pressure: LV, Ao, HR=63, Condition=Condition 1 10:37:38 (Left Ventricle) LV 107/5/10, (Aorta) Ao 105/64/83 10:38:18 Catheter was removed Assessment: Final Case, HR=62 BPM, Rhythm=reg-pvc, FINT=531/76 mmhg, Chest Pain=0, Edema=None, Color=Normal, Skin = Warm Right Pulses: Brad Ped=2, Femoral=2, Radial=2 10:39:03 Left Pulses: Femoral=2 Lower Right Extremities: Color=Normal Neurological: State=Alert, Ox3, WALLACE Respiration: Resp=15 B/min, SpO2=95 % 10:39:30 Catheter(s) removed without difficulty 10:40:10 Case End 10:40:12 Sterile dressing applied to site 10:40:13 No case complications noted. 10:40:14 Cine recording checked. 10:40:17 Bedside Report will be given. 10:40:22 A Left Heart Cath was performed. 10:40:24 HR=53 bpm, LXAS=943/74 mmhg, SpO2=93.0 %, Resp=18 B/min, Pain=0, Barrera=10, Martel=2 Radial Compression Device Used. 9 mLs of air placed in BAND, RADIAL COMPRESSION TR SHORT 24 24 CM. Affected 10:42:45 hand 97 % O2 saturation. End Study - Contrast Media Used In Study Contrast Total Opened (mL) Total Used (mL) Total Wasted (mL) Omnipaque 55 55 0 End Study - Maximum Contrast Load Max Contrast Load (mL) 594.3 End Study - Radiation Exposure Fluoro Time (minutes) 7.7 End Study - Sheaths Sheaths Pulled By Sheath Hold Time (min) Kecia Mary End Study - Patient Disposition Complications Transferred To No Outpatient Bed
[2017-06-16] MEDS ORDERED: MISC INFORMATION XX ONE (11:00)
[2017-06-16] MEDS ORDERED: SODIUM CHLORIDE 0.9% FLUSH 10 ML FLUSH IV FLUSH PRN (11:00)
--- NOTE | 2017-06-16 11:31 | MA ---
cc: Venu Garcia MD 06/16/2017 PROCEDURE PERFORMED: Left heart catheterization, left ventriculography, coronary angiography. BRIEF HISTORY: Rosales Luciano is a 61-year-old man who had a 3.5 x 12-mm [place] stent in the proximal LAD February 05. He has been free of angina. 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 DESCRIPTION OF PROCEDURE: The patient received a total of 10 mg of IV Versed and 50 mcg of IV Fentanyl before his procedure. The left wrist was prepped and draped in sterile fashion. Using 1% lidocaine for local anesthesia, a Terumo Slender Sheath was inserted in the right radial artery without difficulty. Next, coronary angiography was completed using a left 3.5 Kourtney for the left coronary artery and a right 5 Kourtney for the right coronary artery. An angled pigtail catheter was then used to measure left ventricular pressure followed by a hand injection and a pullback. There were no complications. The patient tolerated the procedure well. FINDINGS: I. HEMODYNAMICS: Left ventricular pressure is 107/5 with an end-diastolic pressure of 10. Aortic pressure was 105/64 with a mean of 83. There was no gradient during pullback from the left ventricle to the aorta. II. LEFT VENTRICULOGRAPHY: Left ventriculography shows a symmetrical bea left ventricle. The estimated ejection fraction is 60%. III. CORONARY ANGIOGRAPHY: Coronary circulation is right dominant. The left main coronary artery appears normal. The left anterior descending artery has a 30% eccentric proximal stenosis and there is a diagonal branch given off at that level. There is then a widely patent stent in the proximal LAD before the first septal roller engraver branch. There is a second diagonal branch with irregularities only. The distal LAD only has irregularities. The circumflex artery has about a 20% eccentric proximal stenosis. The remainder of the circumflex vessel appears normal. The right coronary artery is dominant and it has about 25% mid disease. CONCLUSIONS: 1. Normal hemodynamics. 2. Nonobstructive CAD. 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 Venu Garcia MD VEBeth/LUÍS , 10:49 AM , 11:30 AM
--- NOTE | 2017-06-16 19:02 | EKG ---
Date Performed: 06/16/2017 Time Performed: 08:42:26 PTAGE: 61 years EKG: Sinus rhythm Normal ECG Since the prior tracing, there has been no significant change PREVIOUS TRACING : 03/11/2017 06.11 DOCTOR: Venu Garcia Interpretating Date/Time 06/16/2017 19:01:31
[2017-06-16] MEDS ORDERED: SODIUM CHLORIDE 0.9% FLUSH 10 ML FLUSH IV FLUSH SCH (21:00)
== END 2017-06-16 14:33 | disposition home or self-care (01) ==
LOC: HDOC 07:39 → HDIC 07:40 → HDOC 14:33
PROVIDERS: ATTEND Internal Medicine Cardiovascular Disease
DX: I25.10 Atherosclerotic heart disease of native coronary artery without angina pectoris (principal); R00.2 Palpitations; I48.0 Paroxysmal atrial fibrillation; R55 Syncope and collapse; I65.29 Occlusion and stenosis of unspecified carotid artery; I49.8 Other specified cardiac arrhythmias; E78.5 Hyperlipidemia, unspecified; Z72.0 Tobacco use; Z95.5 Presence of coronary angioplasty implant and graft
CPT/HCPCS: 80048; 85025; 85610; 85730; 93005; 93458; 99152; 99153; C1769; C1893; J1644; J2250; J3010; Q9967